=== PATIENT | male | born 1960 | race Caucasian/White ===

== ENCOUNTER → 2017-06-28 12:21 | Outpatient (CLI) | payer OTHER, SELFPAY ==
--- NOTE | 2017-06-28 | DI.CT.S_ITS ---
PROCEDURE: CT ANGIO ABDOMEN PELVIS INDICATIONS: DISSECTION OF AORTA TECHNIQUE: Non-contrast 3 mm thick sections acquired from the diaphragm to the symphysis. After the administration of intravenous contrast, 2.5 mm thick sections acquired from the diaphragm to the symphysis during the arterial and venous phases. 10 mm maximum intensity projection (MIP) reformats were acquired of the arterial phase images. For radiation dose reduction, the following was used: automated exposure control. COMPARISON: Outside Facility, RG, CT CHEST/ABD/PEL W/CONTRAST, 01/11/2017, 14:26. FINDINGS: Image quality: Excellent. Vascular structures: The distal aspect of a thoracic aortic endograft is visualized on this limited view of the chest. The visualized portions of the thoracic aorta are markedly tortuous. No aneurysmal dilatation. As before, aortic dissection is redemonstrated just superior to the level of the celiac axis at the distal aspect of the thoracic aortic endograft. Both lumens of the dissection opacify. However, the true lumen demonstrates slightly increased density with respect to the false lumen. The celiac axis is fed by the false lumen. A focal high-grade stenosis is present at the origin of the celiac axis unchanged on the study dated 01/11/17. The SMA is fed by the true lumen. The right renal artery is fed by the true lumen and the left renal artery is fed by the false lumen. The DEBBIE is fed by the false lumen. All mesenteric vessels are widely patent. The dissection plane extends into the bilateral iliac arteries. The dissection plane extends into the superior aspect of the left common iliac artery and the distal aspect of the right common iliac artery. The internal and external iliac arteries are fed by the true lumen bilaterally. The right iliac artery measures 2.1 cm in diameter which is unchanged from the prior study. No abdominal aortic aneurysm. No periaortic fat stranding or contrast extravasation. Extravascular structures: Lung bases are clear. Left pleural effusion visualized on the comparison study dated 01/11/17 has resolved. Heart size is normal. Liver is normal in size and enhancement. Gallbladder is unremarkable. Biliary system is non dilated. Pancreas enhances normally. Spleen is normal in size and enhancement. No adrenal nodules. Kidneys are normal in size and enhancement, without hydronephrosis. Non-opacified bowel loops demonstrate normal wall thickness and caliber. There are scattered sigmoid diverticula. No evidence for diverticulitis. No free fluid or air. No retroperitoneal or mesenteric adenopathy. There is a small fat containing ventral hernia. No suspicious bony abnormalities. No vertebral body compression fractures. There are bilateral L5-S1 pars interarticularis defects with grade I anterolisthesis. IMPRESSION: 1. Overall stable appearance of the aortic dissection when compared with the prior CT dated 01/11/17. 2. 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 Dictated by: Bonny Brennan M.D. on 06/28/2017 at 14:27 Approved by: Bonny Brennan M.D. on 06/28/2017 at 14:38
== END ==
PROVIDERS: PCP Family Medicine; Visit Provider Thoracic Surgery (Cardiothoracic Vascular Surgery)
DX: I71.01 Dissection of thoracic aorta (principal)
CPT/HCPCS: 74174; Q9967

== ENCOUNTER → 2017-11-05 16:00 | Outpatient (CLI) | payer OTHER, SELFPAY | DX: Z23 Encounter for immunization (principal) | CPT/HCPCS: 90471; 90686 ==

== ENCOUNTER → 2018-01-02 07:30 | Outpatient (CLI) | payer OTHER, SELFPAY ==
[2018-01-02 08:47] LABS: Add Manual Diff / Slide Review NO; Basophils Percent Auto 0.4 % (0-2); Eosinophils Percent Auto 5.5 % (2-4); Hematocrit 40.2 % (41-53); Hemoglobin 13.9 g/dL (13.5-17.5); Lymphocytes Percent Auto 22.8 % (25-40); Mean Corpuscular HGB Conc 34.5 % (30-36); Mean Corpuscular Volume 89.7 fL (80-100); Neutrophils Absolute Auto 3900 /uL (3000-5900); Neutrophils Percent Auto 63.3 % (50-75); Platelet Count 140 X10^3/uL (150-400); Red Blood Cell Count 4.48 X10^6/uL (4.5-5.9); Red Cell Distribution Width 13.5 % (11.6-14.8); White Blood Cell Count 6.2 X10^3/uL (4.5-11.0)
[2018-01-02 11:55] LABS: HEMOLYSIS < 15 (0-50); Prostate Specific Antigen Scrn 0.804 ng/mL (0.1-4.0)
[2018-01-02 11:57] LABS: TSH w/ Reflex to FT4 1.46 uIU/mL (0.47-4.68)
[2018-01-02 12:07] LABS: Alanine Aminotransferase 33 IU/L (21-72); Albumin 4.6 g/dL (3.5-5.0); Albumin Globulin Ratio 1.5 (1.0-2.8); Alkaline Phosphatase 54 U/L (38-126); Aspartate Aminotransferase 25 IU/L (17-59); BUN Creatinine Ratio 17.8 (6-22); Bilirubin Total 0.8 mg/dL (0.2-1.3); Blood Urea Nitrogen 16 mg/dL (9-20); Calcium 9.1 mg/dL (8.4-10.2); Carbon Dioxide 27 mmol/L (22-32); Chloride 104 mmol/L (98-107); Cholesterol 144 mg/dL (140-199); Estimated Glomerular Filt Rate > 60.0 mL/min (>60); Glucose 105 mg/dL (70-100); HDL Cholesterol 37 mg/dL (40-60); LDL Cholesterol Calculated 86 mg/dL (<100); Potassium 4.4 mmol/L (3.4-5.1); Sodium 144 mmol/L (137-145); Total Protein 7.6 g/dL (6.3-8.2); Triglycerides 105 mg/dL (35-150)
[2018-01-02 16:02] LABS: Free T4, Direct Thyroxine 1.06 ng/dL (0.78-2.19)
== END ==
PROVIDERS: Visit Provider Internal Medicine
DX: E78.5 Hyperlipidemia, unspecified (principal); I10 Essential (primary) hypertension; I71.03 Dissection of thoracoabdominal aorta; Z12.5 Encounter for screening for malignant neoplasm of prostate; R53.83 Other fatigue
CPT/HCPCS: 36415; 80053; 80061; 84439; 84443; 85025; G0103

== ENCOUNTER → 2018-11-14 09:18 | Outpatient (CLI) | payer OTHER, SELFPAY ==
--- NOTE | 2018-11-14 | DI.CT.S_ITS ---
PROCEDURE: CT ANGIO CHEST ABDOMEN PELVIS INDICATIONS: surgical aftercare following surgery TECHNIQUE: Precontrast 5 mm thick sections acquired from the lung apices to the iliac crests. After the administration of intravenous contrast, 2.5 mm thick sections again acquired from the lung apices to the iliac crests. Maximum intensity projection (MIP) oblique sagittal and coronal reformats were then acquired. For radiation dose reduction, the following was used: automated exposure control. COMPARISON: Outside Facility, , CT THORAX/ABD/PELVIS W/WO CONTRAST, 01/21/2018, 12:11. [facility], CT, ANGIO CHEST ABDOMEN PELVIS, 11/29/2016, 16:01. [facility], CT, ANGIO CHEST ABDOMEN PELVIS, 10/30/2016, 13:39. FINDINGS: Image quality: Excellent. AORTA: Intramural hematoma: Absent. Aortic and distended begins at the aortic arch and extends inferiorly through the descending thoracic aorta. Immediately below the end of the endostent the previously identified aortic dissection is again seen, extending inferiorly into the pelvis, without change in size of the true or false channel. No vascular insufficiency is associated. Maximum hematoma thickness: Not applicable. Focal contrast enhancement: Stable postcontrast enhancement of the true and false channel within the abdominal course of the aorta, tracking into the common iliac arteries bilaterally and extending more inferiorly on the right than the left, terminating within the proximal right external iliac artery. Dissection: Absent within the thoracic aorta, present and stable over time within the abdominal and pelvic portion of the aorta and the iliac vasculature slightly greater on the right than the left proximally. [place] classification: Binu classification B. Maximum aortic diameter: 3.8 cm transverse and 3.7 cm oblique AP just below the origin of the inferior mesenteric artery. This includes both the true and false channels in the area of the distal aortic dissection. This is stable over time. 3.6 x 3.4 cm at the renal artery origin level, also stable.. cm. [If [place] A dissection, > 5.0 cm has a poorer prognosis. If [place] B dissection, > 4.0 cm has a poorer prognosis.] Periaortic hematoma: Absent. CHEST: Lungs and pleura: No acute airspace opacities. No pleural effusions or pneumothorax. Central and peripheral airways are patent and normal in caliber. Mediastinum: Heart size is normal. No pericardial effusion. No mediastinal or hilar adenopathy by size criteria. Central pulmonary arteries are normal in size. Esophagus is normal in caliber. No hiatal hernias. Bones and chest wall: No axillary adenopathy by size criteria. Thyroid gland appears normal where well visualized. No suspicious bony lesions. No vertebral body compression fractures. ABDOMEN: Vasculature: Celiac trunk and mesenteric arteries are patent. Renal arteries are also patent. Solid organs: Liver is normal in size and enhancement. Gallbladder normal.. Biliary system is non dilated. Pancreas enhances normally. Spleen is normal in size and enhancement. No adrenal nodules. Both kidneys are normal in size and enhancement, without hydronephrosis. Peritoneum and bowel: No free fluid or air. Bowel loops are normal in caliber and wall thickness. Nodes and vessels: No retroperitoneal or mesenteric adenopathy by size criteria. Inferior vena cava is normal in morphology. Miscellaneous: No ventral hernias. PELVIS: Genitourinary: Bladder wall thickness is normal. Miscellaneous: No inguinal hernias or adenopathy. No ventral hernias. Bones: No suspicious bony lesions. No vertebral body compression fractures. IMPRESSION: The examination is stable over time. A previously present extensive thoracic, abdominal, and pelvic aortoiliac dissection has been treated with aortic arch and descending thoracic aorta endostent, without evidence of endostent leak. The stent ends at the descending thoracic aortic border, and the residual dissection can be seen immediately below tracking inferiorly into the iliac arteries. The caliber of the aorta and the both the true and false channels of the remaining area of dissection are stable over time. The true and false channels remain patent, including extending into the pelvis and tracking into the external iliac artery on the right but not on the left. No new abnormality has developed. Dictated by: Zay Monreal M.D. on 11/14/2018 at 13:15 Approved by: Zay Monreal M.D. on 11/14/2018 at 13:32
== END ==
PROVIDERS: Family Provider Internal Medicine; PCP Internal Medicine; Visit Provider Thoracic Surgery (Cardiothoracic Vascular Surgery)
DX: Z48.812 Encounter for surgical aftercare following surgery on the circulatory system (principal)
CPT/HCPCS: 71275; 74174; Q9967

== ENCOUNTER → 2018-11-27 16:06 | Outpatient (CLI) | payer OTHER, SELFPAY | PROVIDERS: PCP Internal Medicine | DX: Z23 Encounter for immunization (principal) | CPT/HCPCS: 90471; 90686 ==

== ENCOUNTER → 2019-08-31 06:40 | Outpatient (CLI) | payer OTHER, SELFPAY ==
[2019-08-31 14:13] LABS: Alanine Aminotransferase 24 IU/L (<50); Albumin 4.5 g/dL (3.5-5.0); Albumin Globulin Ratio 1.6 (1.0-2.8); Alkaline Phosphatase 49 U/L (38-126); Aspartate Aminotransferase 29 IU/L (17-59); BUN Creatinine Ratio 27.4 (6-22); Bilirubin Total 0.8 mg/dL (0.2-1.3); Blood Urea Nitrogen 29 mg/dL (9-20); Calcium 9.7 mg/dL (8.4-10.2); Carbon Dioxide 32 mmol/L (22-32); Chloride 98 mmol/L (98-107); Cholesterol 216 mg/dL (140-199); Estimated Glomerular Filt Rate > 60.0 mL/min (>60); Globulin 2.9 g/dL (1.7-4.1); Glucose 95 mg/dL (70-100); HDL Cholesterol 28 mg/dL (40-60); HEMOLYSIS < 15 (0-50); LDL Cholesterol Calculated 119 mg/dL (<100); Potassium 4.2 mmol/L (3.4-5.1); Sodium 138 mmol/L (137-145); Total Protein 7.4 g/dL (6.3-8.2); Triglycerides 347 mg/dL (35-150)
[2019-08-31 14:41] LABS: Magnesium 2.5 mg/dL (1.6-2.3)
[2019-08-31 14:42] LABS: Prostate Specific Antigen Scrn 0.938 ng/mL (0.1-4.0)
== END ==
PROVIDERS: PCP Internal Medicine; Referring Provider Internal Medicine Cardiovascular Disease; Visit Provider Internal Medicine Cardiovascular Disease
DX: Z12.5 Encounter for screening for malignant neoplasm of prostate (principal); I10 Essential (primary) hypertension; E78.5 Hyperlipidemia, unspecified
CPT/HCPCS: 36415; 80053; 80061; 83735; G0103

== ENCOUNTER 2019-11-18 07:21 | Observation (INO) | payer OTHER, SELFPAY ==
[2019-11-18] VITALS (19 sets, daily range): BP systolic 109–125; BP diastolic 58–75; PULSE 49–65; RESP 12–26; TEMP 36.4–37.4; O2SAT 94–99; BMI 35.8
--- NOTE | 2019-11-18 07:42 | ED_ITS ---
HPI - General Adult General Chief complaint: Dizziness Stated complaint: numb tongue, sweaty,dizziness now Time Seen by Provider: 11/18/19 07:32 Source: patient and family Mode of arrival: Ambulatory History of Present Illness HPI narrative: 59-year-old gentleman with a history of diabetes, hypertension hyperlipidemia and descending aortic aneurysm post stenting, presents with acute onset of diaphoresis, dizziness, tongue numbness, left arm tingling and global weakness. Started at 7:05 a.m. as he was walking in from his car in starting his work shift. Notes that he has chronic back pain and chronic bilateral peripheral paresthesia in the lower extremities after his aortic stent placement and this has not changed. No specific unilateral weakness but global weakness. Diaphoresis is improving on arrival in the emergency department does not complain of dyspnea, palpitations, chest pain, headaches. No additional focal neurologic symptoms any is able to speak fluidly and fully participate in exam and questions. 11:20am co-worker is available and additional details are added to the history. On initial presentation close questioning of the patient and his both suggested no acute neurologic changes. His co-worker, with whom he was talking when the symptoms initially started does report some word-finding difficulty and acute confusion that lasted approximately 10 minutes. Patient does not remember this. The co-worker also notes some mild confusion yesterday that was unusual but not persistent. Related Data Home Medications Medication Instructions Recorded Confirmed multivitamin [Multiple Vitamins] 1 tab PO QDAY #0 10/30/16 11/18/19 chlorthalidone 25 mg tablet 12.5 mg PO DAILY tab 11/20/18 11/18/19 metoprolol tartrate 50 mg tablet 25 mg PO BID tab 04/23/19 11/18/19 potassium chloride 8 mEq 8 meq PO DAILY tab 04/23/19 11/18/19 tablet,extended release atorvastatin 20 mg PO BEDTIME 11/18/19 11/18/19 Previous Rx's Medication Instructions Recorded lisinopril 20 mg tablet 20 mg PO BID #180 tab 04/30/19 Allergies Allergy/AdvReac Type Severity Reaction Status Date / Time No Known Drug Allergies Allergy Verified 04/23/19 13:31 Review of Systems Review of Systems Narrative: Pertinent positive and negative findings as per HPI Remainder of review of systems is otherwise unremarkable for Constitutional: Fevers, chills, ENT: No sore throat, neck pain, ear pain CV: Chest pain, palpitations, dyspnea on exertion Respiratory: Cough, wheeze, dyspnea GI: Nausea, vomiting, diarrhea, change in bowel habits, black or bloody stools : Dysuria, hematuria, flank pain MS: numbness, joint swelling or warmth Skin: Rashes, nonhealing lesions Neuro: Syncope Endocrine: Fatigue, heat or cold intolerance, very dry skin Patient History Medical History Aneurysm (Resolved ~2016) 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 Social History marital status: number of children: 1 household members: spouse lives independently: Yes caregiver/support person: No housing: house pets and animals: Yes education level: other (Bachelors) occupational status: employed [employer]: [employer] leisure activities: fishing, reading and other (Golf, Watching TV, Building things in yard) Smoking Status: Never smoker Tobacco: How many years used: 0 quit status: quit date established (Never Started) alcohol intake: current (Rarely) substance use type: does not use Smoking Status: Never smoker alcohol intake frequency: holidays/special occasions only Substance Use Type: does not use Exam Narrative Exam Narrative: General: Pale, diaphoretic, Able to give a complete and coherent history. Well-nourished well-developed HEENT: Moist mucous membranes, normal sclera with reactive pupils, no facial droop Neck: No JVD, supple, no carotid bruits Respiratory: Lungs are clear to auscultation, no wheezing no rales no rhonchi. Full and symmetrical air movement Cardiac: Regular rate and rhythm no murmurs no bruits Abdomen: Soft nontender good bowel tones, no flank pain Skin: Color is beginning to return, diaphoresis is lessening, no rashes Neurologic: Grossly neurologically intact with no obvious asymmetries or abnormalities, global weakness Extremities: No trauma, well perfused Psych: Cooperative, appropriate insight and affect Initial Vital Signs Initial Vital Signs: Vital Signs Pulse Rate 62 11/18/19 07:29 Respiratory Rate 15 11/18/19 07:29 Pulse Oximetry 95 11/18/19 07:29 Course Orders Ordered: ED Orders 11/18/19 07:27 EKG-12 Lead Routine 11/18/19 07:35 Complete Blood Count AUTO DIFF Stat Comprehensive Metabolic Panel Stat D Dimer Stat Lipase Stat Magnesium Stat NT-proBNP (BNP-Adult 18+) Stat Procalcitonin Stat Troponin I Stat 11/18/19 07:47 XR chest 1V Stat 11/18/19 08:20 Urinalysis and Microscopic Stat 11/18/19 10:16 CT angio chest PE protocol Stat 11/18/19 11:21 CT head/brain wo con Stat 11/18/19 11:25 Troponin I Stat 11/18/19 12:23 EKG-12 Lead Stat 11/18/19 13:23 EC echo doppler complete Stat MR head/brain wo/w con Stat Discontinued Medications Aspirin (Aspirin Chew) 324 mg PO NOW ONE Stop: 11/18/19 07:47 Last Admin: 11/18/19 07:55 Dose: 324 mg Documented by: MMINOR Vital Signs Vital signs: Vital Signs - 8 hr 11/18/19 07:29 11/18/19 07:30 11/18/19 08:00 Temperature 99.3 F Pulse Rate 62 61 62 Respiratory Rate 15 12 19 Blood Pressure 121/64 Pulse Oximetry 95 95 96 11/18/19 08:30 11/18/19 08:31 11/18/19 09:00 Temperature Pulse Rate 60 60 56 L Respiratory Rate 18 26 H 19 Blood Pressure 109/58 L 119/71 Pulse Oximetry 95 95 95 11/18/19 09:30 11/18/19 10:00 11/18/19 10:30 Temperature Pulse Rate 55 L 50 L 50 L Respiratory Rate 12 16 16 Blood Pressure 112/60 Pulse Oximetry 95 95 95 11/18/19 10:40 11/18/19 11:00 11/18/19 11:30 Temperature Pulse Rate 50 L 49 L 53 L Respiratory Rate 22 13 Blood Pressure 114/64 122/70 109/62 Pulse Oximetry 95 95 95 11/18/19 12:00 11/18/19 12:30 11/18/19 12:52 Temperature Pulse Rate 52 L 53 L 53 L Respiratory Rate 14 26 H 22 Blood Pressure 115/71 115/71 Pulse Oximetry 99 98 98 11/18/19 13:00 11/18/19 13:30 Temperature Pulse Rate 58 L 53 L Respiratory Rate 14 13 Blood Pressure 125/72 118/66 Pulse Oximetry 98 97 Medical Decision Making Medical Records Medical records reviewed: Yes I reviewed the patient's medical records. Lab Data Lab results reviewed: Yes I reviewed the patient's lab results. Result diagrams: 11/18/19 07:35 11/18/19 07:35 Labs: Lab Results 11/18/19 11/18/19 11/18/19 Range/Units 07:35 07:35 07:35 WBC 6.7 (4.5-11.0) X10^3/uL RBC 4.37 L (4.5-5.9) X10^6/uL Hgb 13.6 (13.5-17.5) g/dL Hct 39.3 L (41-53) % MCV 89.9 (80-100) fL MCH 31.2 (26-34) PG MCHC 34.7 (30-36) % RDW 13.5 (11.6-14.8) % Plt Count 157 (150-400) X10^3/uL Neut % (Auto) 65.7 (50-75) % Lymph % (Auto) 23.1 L (25-40) % [place] % (Auto) 6.4 (3-14) % Eos % (Auto) 4.3 H (2-4) % Baso % (Auto) 0.5 (0-2) % Neut # (Auto) 4400 (5379-7562) /uL Lymph # (Auto) 1500 (0252-2792) /uL [place] # (Auto) 400 (0-900) /uL Eos # (Auto) 300 (0-450) /uL Baso # (Auto) 0 (0-100) /uL D-Dimer 2628 H (<230) ng/mL Sodium 139 (137-145) mmol/L Potassium 3.7 (3.4-5.1) mmol/L Chloride 102 (98-107) mmol/L Carbon Dioxide 27 (22-32) mmol/L BUN 19 (9-20) mg/dL Creatinine 0.97 (0.66-1.25) mg/dL Estimated GFR > 60.0 (>60) mL/min BUN/Creatinine Ratio 19.6 (6-22) Glucose 141 H (70-100) mg/dL Calcium 8.9 (8.4-10.2) mg/dL Magnesium 2.2 (1.6-2.3) mg/dL Total Bilirubin 0.7 (0.2-1.3) mg/dL AST 27 (17-59) IU/L ALT 24 (<50) IU/L Alkaline Phosphatase 55 (38-126) U/L Troponin I < 0.012 (0.01-0.034) ng/mL NT-Pro-B Natriuret Pep 13 (<125) pg/mL Total Protein 7.3 (6.3-8.2) g/dL Albumin 4.3 (3.5-5.0) g/dL Globulin 3.0 (1.7-4.1) g/dL Albumin/Globulin Ratio 1.4 (1.0-2.8) Lipase 226 (23-300) U/L Procalcitonin (<0.5) ng/mL Urine Color Urine Appearance Urine pH (4.5-8.0) Ur Specific [place] (1.000-1.035) Urine Protein (Negative) Urine Glucose (UA) (Negative) g/dL Urine Ketones (NEGATIVE) Urine Occult Blood (Negative) Urine Nitrate (Negative) Urine Bilirubin (NEGATIVE) Urine Urobilinogen (0.2) E.U./dL Ur Leukocyte Esterase (NEGATIVE) Urine RBC (0-5/HPF) Urine WBC (0-5/HPF) Urine Bacteria (None) Ur Culture Indicated? Micro UA Comment 11/18/19 11/18/19 11/18/19 Range/Units 07:35 08:20 11:25 WBC (4.5-11.0) X10^3/uL RBC (4.5-5.9) X10^6/uL Hgb (13.5-17.5) g/dL Hct (41-53) % MCV (80-100) fL MCH (26-34) PG MCHC (30-36) % RDW (11.6-14.8) % Plt Count (150-400) X10^3/uL Neut % (Auto) (50-75) % Lymph % (Auto) (25-40) % [place] % (Auto) (3-14) % Eos % (Auto) (2-4) % Baso % (Auto) (0-2) % Neut # (Auto) (0559-6412) /uL Lymph # (Auto) (1086-1600) /uL [place] # (Auto) (0-900) /uL Eos # (Auto) (0-450) /uL Baso # (Auto) (0-100) /uL D-Dimer (<230) ng/mL Sodium (137-145) mmol/L Potassium (3.4-5.1) mmol/L Chloride (98-107) mmol/L Carbon Dioxide (22-32) mmol/L BUN (9-20) mg/dL Creatinine (0.66-1.25) mg/dL Estimated GFR (>60) mL/min BUN/Creatinine Ratio (6-22) Glucose (70-100) mg/dL Calcium (8.4-10.2) mg/dL Magnesium (1.6-2.3) mg/dL Total Bilirubin (0.2-1.3) mg/dL AST (17-59) IU/L ALT (<50) IU/L Alkaline Phosphatase (38-126) U/L Troponin I < 0.012 (0.01-0.034) ng/mL NT-Pro-B Natriuret Pep (<125) pg/mL Total Protein (6.3-8.2) g/dL Albumin (3.5-5.0) g/dL Globulin (1.7-4.1) g/dL Albumin/Globulin Ratio (1.0-2.8) Lipase (23-300) U/L Procalcitonin < 0.05 (<0.5) ng/mL Urine Color Yellow Urine Appearance Clear Urine pH 7.0 (4.5-8.0) Ur Specific [place] 1.015 (1.000-1.035) Urine Protein Negative (Negative) Urine Glucose (UA) Negative (Negative) g/dL Urine Ketones Negative (NEGATIVE) Urine Occult Blood Negative (Negative) Urine Nitrate Negative (Negative) Urine Bilirubin Negative (NEGATIVE) Urine Urobilinogen 0.2 (0.2) E.U./dL Ur Leukocyte Esterase Negative (NEGATIVE) Urine RBC None seen (0-5/HPF) Urine WBC None seen (0-5/HPF) Urine Bacteria None seen (None) Ur Culture Indicated? Cult not indicated Micro UA Comment Microscopic normal Imaging Data CT scan - chest: Radiologist's Impression: FINDINGS: Image quality: Excellent. Pulmonary arteries: Pulmonary arteries are normal in size, and demonstrate no intraluminal filling defects to suggest central pulmonary embolism. Lungs and pleura: Lungs are clear. No pleural effusions or pneumothorax. Central and peripheral airways are patent. Mediastinum: Heart size is normal, without pericardial effusion. There is moderate coronary artery calcification. There are calcified lymph nodes in mediastinum and ezio, consistent with remote granulomatous disease. No enlarged hilar lymph nodes. There are postsurgical changes in thoracic aorta a with an luminal graft. Aorta is mildly aneurysmal and tortuous. Esophagus is normal in caliber, without hiatal hernia. Bones and chest wall: No suspicious bony lesions. Ribs and thoracic spine appear intact throughout. Thyroid gland is normal. No axillary or supraclavicular adenopathy. Abdomen: Visualized upper abdominal solid organs appear normal in the early arterial phase of enhancement. IMPRESSION: 1. No pulmonary embolism. 2. Postsurgical changes in thoracic aorta. Thoracic aorta is tortuous and mildly aneurysmal. Dictated by: Pravin Blanco M.D. on 11/18/2019 at 10:19 Chest x-ray: Radiologist's Impression: FINDINGS: Surgical changes and devices: Descending thoracic aorta endovascular stent in place. Surgical clips at the base of the left neck. Lungs and pleura: Lungs are clear. No pleural effusions or pneumothorax. Mediastinum: Mediastinal contours appear normal. Heart size is normal. Bones and chest wall: No suspicious bony lesions. Overlying soft tissues appear unremarkable. IMPRESSION: No acute process. Dictated by: Elvira Greene M.D. on 11/18/2019 at 8:00 CT scan - head: Radiologist's Impression: FINDINGS: Image quality: Excellent. CSF spaces: Basal cisterns are patent. No extra-axial fluid collections. Ventricles are normal in size and shape. Brain: No midline shift. No intracranial masses or hemorrhage. [place]-white matter interface is normal. Skull and face: Calvarium and visualized facial bones are intact, without suspicious lesions. Sinuses: There is mild mucosal thickening in ethmoid and sphenoid sinuses and the left maxillary sinus. The mastoids are clear. IMPRESSION: 1. No acute intracranial abnormalities. 2. Mild paranasal sinus disease. Dictated by: Pravin Blanco M.D. on 11/18/2019 at 12:07 ECG Data Attestation: I personally reviewed and interpreted this ECG as follows: Interpretation: Sinus rhythm at a rate of 62 Left axis deviation, normal intervals No acute STT wave changes MDM Narrative Medical decision making narrative: 59-year-old gentleman presents with acute episode of dizziness, diaphoresis and global weakness. Initial workup is unremarkable. EKG is reassuring. D-dimer was elevated PE study of the chest does not show any acute findings. Repeat both EKG and troponin at this time. Patient continues to improve throughout the course of his ER stay. 11:20 with additional details and the confusion and word-finding difficulties for 10 minutes in the 1st presentation with the diaphoresis dizziness tongue tingling and left arm tingling certainly sounds like there could be a neurologic component as opposed to purely a cardiac component. CT scan of the head will be added. [address] scan is unremarkable. In light of the rather dramatic presentation prolonged diaphoresis and in retrospect with new additional information now the brief confusion and word-finding difficulties am going to recommend hospitalization for continued cardiac rule out and stroke/TIA workup. Dr. Barbosa is his primary care physician will contact him 115pm Reviewed with Dr Byrne. Will admit. MRI and cardiac echo ordered to expedite stay Discharge Plan Departure Patient Disposition: Admitted as Observation Clinical Impression: Brain TIA Admit Date/Time: 11/18/19 13:32 Admit Provider: Sea Barbosa
--- NOTE | 2019-11-18 07:43 | PC.NURSE ---
pt denies any chest pain
--- NOTE | 2019-11-18 07:47 | DI.RAD.S_ITS ---
PROCEDURE: XR CHEST 1V INDICATIONS: weak, diaphoretic, arm tingling left side TECHNIQUE: One view of the chest was acquired. COMPARISON: [facility], , CHEST 1 VIEW, 10/30/2016, 10:34. FINDINGS: Surgical changes and devices: Descending thoracic aorta endovascular stent in place. Surgical clips at the base of the left neck. Lungs and pleura: Lungs are clear. No pleural effusions or pneumothorax. Mediastinum: Mediastinal contours appear normal. Heart size is normal. Bones and chest wall: No suspicious bony lesions. Overlying soft tissues appear unremarkable. IMPRESSION: No acute process. Dictated by: Elvira Greene M.D. on 11/18/2019 at 8:00 Approved by: Elvira Greene M.D. on 11/18/2019 at 8:03
--- NOTE | 2019-11-18 07:47 | PC.NURSE ---
pt states he felt some tingling in L arm at onset of dizziness with diaphoresis and generalized weakness but denies pain or syncope
[2019-11-18] MEDS: ASPIRIN 81 MG CHEW TAB 324 MG PO (07:55)
[2019-11-18 08:05] LABS: Add Manual Diff / Slide Review NO; Basophils Absolute Auto 0 /uL (0-100); Basophils Percent Auto 0.5 % (0-2); Eosinophils Absolute Auto 300 /uL (0-450); Eosinophils Percent Auto 4.3 % (2-4); Hematocrit 39.3 % (41-53); Hemoglobin 13.6 g/dL (13.5-17.5); Lymphocytes Absolute Auto 1500 /uL (1100-4500); Lymphocytes Percent Auto 23.1 % (25-40); Mean Corpuscular HGB Conc 34.7 % (30-36); Mean Corpuscular Hemoglobin 31.2 PG (26-34); Mean Corpuscular Volume 89.9 fL (80-100); Monocytes Absolute Auto 400 /uL (0-900); Monocytes Percent Auto 6.4 % (3-14); Neutrophils Absolute Auto 4400 /uL (1500-7000); Neutrophils Percent Auto 65.7 % (50-75); Platelet Count 157 X10^3/uL (150-400); Red Blood Cell Count 4.37 X10^6/uL (4.5-5.9); Red Cell Distribution Width 13.5 % (11.6-14.8); White Blood Cell Count 6.7 X10^3/uL (4.5-11.0)
[2019-11-18 08:11] LABS: Alanine Aminotransferase 24 IU/L (<50); Albumin 4.3 g/dL (3.5-5.0); Albumin Globulin Ratio 1.4 (1.0-2.8); Alkaline Phosphatase 55 U/L (38-126); Aspartate Aminotransferase 27 IU/L (17-59); BUN Creatinine Ratio 19.6 (6-22); Bilirubin Total 0.7 mg/dL (0.2-1.3); Blood Urea Nitrogen 19 mg/dL (9-20); Calcium 8.9 mg/dL (8.4-10.2); Carbon Dioxide 27 mmol/L (22-32); Chloride 102 mmol/L (98-107); Estimated Glomerular Filt Rate > 60.0 mL/min (>60); Glucose 141 mg/dL (70-100); HEMOLYSIS 17 (0-50); Lipase 226 U/L (23-300); Magnesium 2.2 mg/dL (1.6-2.3); Potassium 3.7 mmol/L (3.4-5.1); Sodium 139 mmol/L (137-145); Total Protein 7.3 g/dL (6.3-8.2)
[2019-11-18 08:16] LABS: D Dimer 2628 ng/mL (<230)
[2019-11-18 08:23] LABS: NT-proBNP (BNP-Adult 18+) 13 pg/mL (<125); Troponin I < 0.012 ng/mL (0.01-0.034)
[2019-11-18 08:28] LABS: Procalcitonin < 0.05 ng/mL (<0.5)
[2019-11-18 09:11] LABS: Bacteria Urine None Seen; RBC Urine None Seen (0-5/HPF); WBC Urine None Seen (0-5/HPF)
[2019-11-18 09:12] LABS: Appearance Urine UA CLEAR; Bilirubin Urine UA NEGATIVE (NEGATIVE); Color Urine UA YELLOW; Glucose Urine UA NEGATIVE (Negative); Ketones Urine UA NEGATIVE (NEGATIVE); Leukocyte Esterase Urine UA NEGATIVE (NEGATIVE); Nitrite Urine UA NEGATIVE (Negative); Occult Blood Urine UA NEGATIVE (Negative); Protein Urine UA NEGATIVE (Negative); Specific Gravity Urine UA 1.015 (1.000-1.035); Urobilinogen Urine UA 0.2 E.U./dL (0.2)
[2019-11-18 09:23] LABS: Culture Indicated Urine Cult Not Indicated; Urine Comments Microscopic Normal
--- NOTE | 2019-11-18 10:03 | PC.NURSE ---
Pt to CT via dann
--- NOTE | 2019-11-18 10:16 | DI.CT.S_ITS ---
PROCEDURE: CT ANGIO CHEST PE PROTOCOL INDICATIONS: elevated d-dimer TECHNIQUE: After the administration of intravenous contrast, 2 mm thick sections acquired from the pulmonary apices to the posterior costophrenic angles. 3-dimensional maximum intensity projection (MIP) coronal and sagittal reformats were then acquired through the thorax. For radiation dose reduction, the following was used: automated exposure control, adjustment of mA and/or kV according to patient size. COMPARISON: Outside Facility, RG, CT THORAX/ABD/PELVIS W/WO CONTRAST, 01/21/2018, 12:11. [facility], CT, CT ANGIO CHEST ABDOMEN PELVIS, 11/14/2018, 9:25. [facility], CR, XR CHEST 1V, 11/18/2019, 7:54. FINDINGS: Image quality: Excellent. Pulmonary arteries: Pulmonary arteries are normal in size, and demonstrate no intraluminal filling defects to suggest central pulmonary embolism. Lungs and pleura: Lungs are clear. No pleural effusions or pneumothorax. Central and peripheral airways are patent. Mediastinum: Heart size is normal, without pericardial effusion. There is moderate coronary artery calcification. There are calcified lymph nodes in mediastinum and ezio, consistent with remote granulomatous disease. No enlarged hilar lymph nodes. There are postsurgical changes in thoracic aorta a with an luminal graft. Aorta is mildly aneurysmal and tortuous. Esophagus is normal in caliber, without hiatal hernia. Bones and chest wall: No suspicious bony lesions. Ribs and thoracic spine appear intact throughout. Thyroid gland is normal. No axillary or supraclavicular adenopathy. Abdomen: Visualized upper abdominal solid organs appear normal in the early arterial phase of enhancement. IMPRESSION: 1. No pulmonary embolism. 2. Postsurgical changes in thoracic aorta. Thoracic aorta is tortuous and mildly aneurysmal. Dictated by: Pravin Blanco M.D. on 11/18/2019 at 10:19 Approved by: Pravin Blanco M.D. on 11/18/2019 at 10:31
--- NOTE | 2019-11-18 11:21 | DI.CT.S_ITS ---
PROCEDURE: CT HEAD/BRAIN WO CON INDICATIONS: Possible TIA TECHNIQUE: Noncontrast 4.5 mm thick angled axial sections acquired from the foramen magnum to the vertex, with coronal and sagittal reformats. For radiation dose reduction, the following was used: automated exposure control, adjustment of mA and/or kV according to patient size. COMPARISON: Outside Facility, RG, CT HEAD W/O CONTRAST, 01/05/2017, 18:07. FINDINGS: Image quality: Excellent. CSF spaces: Basal cisterns are patent. No extra-axial fluid collections. Ventricles are normal in size and shape. Brain: No midline shift. No intracranial masses or hemorrhage. Santiago-white matter interface is normal. Skull and face: Calvarium and visualized facial bones are intact, without suspicious lesions. Sinuses: There is mild mucosal thickening in ethmoid and sphenoid sinuses and the left maxillary sinus. The mastoids are clear. IMPRESSION: 1. No acute intracranial abnormalities. 2. Mild paranasal sinus disease. Dictated by: Pravin Blanco M.D. on 11/18/2019 at 12:07 Approved by: Pravin Blanco M.D. on 11/18/2019 at 12:09
[2019-11-18 11:56] LABS: Troponin I < 0.012 ng/mL (0.01-0.034)
--- NOTE | 2019-11-18 12:59 | PC.NURSE ---
Pt complains of swelling around eyes, swelling noted visually, denies other areas of swelling, lung sounds clear. No visible rash to trunk or extremities. Reported to Dr Ureña, no new orders
--- NOTE | 2019-11-18 13:23 | DI.MRI.S_ITS ---
PROCEDURE: MR HEAD/BRAIN WO/W CON INDICATIONS: TIA - being admitted TECHNIQUE: Noncontrast axial T1 spin echo, axial T2 fast spin echo, sagittal and axial FLAIR, coronal T2 fast spin echo, axial gradient echo, axial diffusion and ADC through the brain. After the administration of contrast, axial and coronal 3D VIBE or T1 spin echo with fat saturation through the brain. COMPARISON: [facility], CT, CT ANGIO CHEST PE PROTOCOL, 11/18/2019, 10:03. [facility], CT, CT HEAD/BRAIN WO CON, 11/18/2019, 11:52. FINDINGS: Image quality: Excellent. CSF Spaces: Basal cisterns are patent. No extra-axial fluid collections. Ventricles are normal in size and shape. Brain: No midline shift. No intracranial bleeds or masses. No abnormal intracranial enhancement. Mild diffuse cerebral volume loss. Minimal degree of patchy high FLAIR signal within the periventricular and subcortical white matter. The brainstem appears normal. Diffusion-weighted images demonstrate no acute ischemic insults. No chronic ischemic insults. Normal intravascular flow voids are present. Skull and face: Calvarial marrow is normal in signal. Orbits appear normal. Sinuses: Moderate mucosal thickening within the left frontal sinus. Mild mucosal thickening in the bilateral maxillary and ethmoid sinuses. IMPRESSION: 1. Mild volume loss and small vessel ischemic disease. 2. No acute process. No recent infarct. 3. Sinus disease. Dictated by: Milton Schrader M.D. on 11/18/2019 at 14:31 Approved by: Milton Schrader M.D. on 11/18/2019 at 14:35
--- NOTE | 2019-11-18 13:54 | PC.NURSE ---
Pt going to MRI, cardiac leads removed.
[2019-11-18 14:11] LABS: COVID19 -Nasal RAPID Negative (Negative)
--- NOTE | 2019-11-18 14:47 | DI.ECHO.S_ITS ---
[facility]+ [facility] +---------+ : : [address] : : : : [id number] : : : : Phone: [phone]+ Echocardiogram Report + + :Name: HONEY GONZALEZ Study Date: 11/19/2019 Height: 71.5 in: :[facility] Weight: 260 lb : : Gender: Male BSA: 2.4 m2 : :: 1960 Age: 59 yrs BP: 116/71 mmHg: :Reason For Study: TIA : :Ordering Physician: : :ASHOKISTMANDO Performed By: Lisa Blackwood : :Referring: MARINA BHAKTA R : + + Interpretation Summary Normal LV size and wall thickness. Normal wall motion left ventricular systolic function. Ejection fraction is 60-65%. Mild left atrial enlargement. Otherwise normal chamber sizes. Aortic valve leaflets are normal with mild associated aortic regurgitation. Otherwise no significant valvular abnormalities. Aortic root is borderline dilated measuring 4.1 cm. Ascending aorta is mildly dilated measuring 4.2 cm. Patient has history of thoracic aortic dissection endovascular repair. No evidence of residual dissection. No evidence of patent foramen ovale based on bubble study. Compared to prior study April 08, 2017, changes have occurred Procedure: A two-dimensional transthoracic echocardiogram with color flow and Doppler was performed. The study quality was technically adequate. Comparison is made with the echocardiogram of 04/08/2017. The subcostal views were difficult to obtain and are suboptimal in quality. The heart rate ranged between 48-60 bpm during the study. Left Ventricle: The left ventricle is normal in size and wall thickness. The ejection fraction is estimated to be 60-65%. Diastolic parameters suggest a relaxation abnormality of the left ventricle, consistent with probable normal filling pressures. Right Ventricle: The right ventricle is grossly normal size. Right ventricular systolic function is mildly reduced. Atria: The left atrium is mildly dilated. Right atrial size is normal. There is no Doppler evidence for an interatrial shunt. Mitral Valve: The mitral valve is normal in structure and function. There is mild mitral regurgitation. Aortic Valve: The aortic valve is trileaflet. The aortic valve opens well. There is no aortic valve stenosis. There is mild aortic regurgitation. Tricuspid Valve: The tricuspid valve is normal in structure and function. Pulmonary artery pressures cannot be estimated because of the lack of a measurable TR jet velocity. Pulmonic Valve: The pulmonic valve is not well seen, but is grossly normal. There is trace pulmonic regurgitation. Great Vessels: The aortic root is borderline dilated. The ascending aorta is mildly enlarged. The inferior vena cava was not visualized. Pericardium/ Pleura There is no pericardial effusion. There is no pleural effusion. MMode/2D Measurements & Calculations LVIDd: 5.9 cm LVOT diam: 2.3 cm LVIDs: 3.7 cm Ao root diam: 4.1 cm FS: 37.3 % asc Aorta Diam: 4.2 cm EPSS: 1.1 cm Ao Arch Diam (Prox Trans): 3.4 cm IVSd: 0.86 cm LVPWd: 0.99 cm LV hendrickson. diameter/BSA (cm/m^2): 2.5 LV sys. diameter/BSA (cm/m^2): 1.6 LA A2 area: 24.8 cm2 RA long axis: 5.4 cm LA A4 area: 20.1 cm2 RA area: 16.2 cm2 LA length (vol): 5.3 cm RA vol: 41.2 ml LA vol: 79.4 ml RA : 17.4 ml/m2 LA vol index: 33.5 ml/m2 RVD1 (basal): 3.5 cm TAPSE: 1.6 cm Doppler Measurements & Calculations Ao V2 max: 169.7 cm/sec LVOT Max Renaldo: 123.1 cm/sec Ao V2 mean: 112.0 cm/sec LV V1 max P.1 mmHg Ao max P.5 mmHg LV V1 VTI: 24.8 cm Ao mean P.7 mmHg LANDON(I,D): 2.9 cm2 Ao V2 VTI: 34.5 cm LANDON(V,D): 2.9 cm2 sev ratio: 0.72 LANDON indexed to BSA (cm^2/m^2): 1.2 AI P1/2t: 768.8 msec AI dec slope: 150.9 cm/sec2 MV E max renaldo: 53.6 cm/sec PA V2 max: 79.7 cm/sec MV A max renaldo: 64.3 cm/sec PA V2 mean: 58.4 cm/sec MV E/A: 0.83 PA mean P.5 mmHg Med Peak E' Renaldo: 6.4 cm/sec PA pr(Accel): 22.5 mmHg E/E' med: 8.4 Lat Peak E' Renaldo: 9.4 cm/sec E/E' lat: 5.7 E/e' average: 7.0 MV dec time: 0.28 sec SV(LVOT): 99.0 ml Electronically signed by: Cara Garcia M.D. on [place] Physician:11/19/2019 06:28 PM
--- NOTE | 2019-11-18 15:19 | PC.NURSE ---
Patient to room 204 at 1440. Dx is CVA. Patient is A&Ox3, no hemiperisis noted, smile is symmetrical. 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 He states that he was having some tingling down his l.arm, tongue numbness, dizziness, and global weakness when he got to work so he came to the ER. is visiting now and patient is comfortable and denies any symptoms.
--- NOTE | 2019-11-18 16:50 | DI.US.S_ITS ---
PROCEDURE: US CAROTID DOPPLER BI INDICATIONS: TIA TECHNIQUE: Color and pulse Doppler interrogation was performed of both carotid systems, with image documentation and velocity measurements. COMPARISON: [facility], MR, MR HEAD/BRAIN WO/W CON, 11/18/2019, 14:05. [facility], CT, CT HEAD/BRAIN WO CON, 11/18/2019, 11:52. [facility], US, CAROTID ARTERY DOPPLER BILAT, 12/17/2016, 8:44. FINDINGS: Stenosis calculations are based on SRU (Society of Radiologists in Ultrasound) criteria. The flow velocities and the arterial waveforms are normal within both carotid arterial systems. Atherosclerotic plaque is seen on both sides. The estimated degree of internal carotid artery stenosis is less than 50%. Antegrade flow is confirmed within both vertebral arteries. IMPRESSION: No hemodynamically significant stenosis is seen. No significant change from the prior. Atherosclerotic plaque is noted bilaterally. Dictated by: Armand Hurst M.D. on 11/18/2019 at 16:50 Approved by: Armand Hurst M.D. on 11/18/2019 at 16:51
--- NOTE | 2019-11-18 17:19 | PM.HP.1 ---
History of Present Illness History of Present Illness Date Patient Seen: 11/18/19 Time Patient Seen: 17:19 Date of Onset of Symptoms: 11/18/19 Chief complaint: numb tongue, sweaty,dizziness now Narrative: TIA. Patient bed through the emergency room for questionable TIA. Patient came to work here and felt his usual self. Soon thereafter however he felt the the lightheaded and dizzy generally weak it and this felt poorly. Soon thereafter the that he noticed left-sided his tongue was numb and tingly his left arm seem to feel sort of achy in felt this odd. It additionally he apparently was somewhat confused and disoriented. He laid down and seemingly got better but the a symptoms seemed to progress so he was brought to the emergency room for further evaluation. During the course of time in the emergency room the symptoms above totally resolved till well currently when I seeing him he is back to his normal. No history of TIA no history of stroke or heart attack. He does have a history of repair of a thoracic aortic aneurysm 3 years ago with fairly large stent. He had history of hypertension hyperlipidemia on medication for same.. The patient was admitted for evaluation been of the above symptoms. 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 Social History: household members spouse Prior Living Arrangements House lives independently Yes caregiver/support person No Safety & Behavioral: Feels Safe in Current Yes Environment Been Physically Hurt or No Threatened By a Person Suicidal Ideation Description None Suicide Plan Description No Plan Tobacco & Substance use: Smoking Status Never smoker alcohol intake current alcohol intake frequency holiday/special occasion Substance Use Type does not use Meds Home Medications and Allergies Home Medications Medication Instructions Recorded Confirmed Type multivitamin [Multiple Vitamins] 1 tab PO QDAY #0 10/30/16 11/18/19 History chlorthalidone 25 mg tablet 12.5 mg PO DAILY tab 11/20/18 11/18/19 History metoprolol tartrate 50 mg tablet 25 mg PO BID tab 04/23/19 11/18/19 History potassium chloride 8 mEq 8 meq PO DAILY tab 04/23/19 11/18/19 History tablet,extended release lisinopril 20 mg tablet 20 mg PO BID #180 tab 04/30/19 11/18/19 Rx atorvastatin 20 mg PO BEDTIME 11/18/19 11/18/19 History Allergies Allergy/AdvReac Type Severity Reaction Status Date / Time No Known Drug Allergies Allergy Verified 04/23/19 13:31 Review of Systems Review of Systems ROS: Yes All systems reviewed with the patient and are negative except as otherwise documented Exam Vital Signs (past 8 hours): - 11/18/19 09:30 11/18/19 10:00 11/18/19 10:30 Temperature Pulse Rate 55 L 50 L 50 L Respiratory Rate 12 16 16 Blood Pressure 112/60 Pulse Oximetry 95 95 95 11/18/19 10:40 11/18/19 11:00 11/18/19 11:30 Temperature Pulse Rate 50 L 49 L 53 L Respiratory Rate 22 13 Blood Pressure 114/64 122/70 109/62 Pulse Oximetry 95 95 95 11/18/19 12:00 11/18/19 12:30 11/18/19 12:52 Temperature Pulse Rate 52 L 53 L 53 L Respiratory Rate 14 26 H 22 Blood Pressure 115/71 115/71 Pulse Oximetry 99 98 98 11/18/19 13:00 11/18/19 13:30 11/18/19 14:47 Temperature 97.5 F L Pulse Rate 58 L 53 L 58 L Respiratory Rate 14 13 17 Blood Pressure 125/72 118/66 121/75 Pulse Oximetry 98 97 99 Oxygen Delivery Method Room Air Narrative Exam Narrative: Gen.: Patient is resting quietly in hospital bed appears in no distress Skin: Warm well perfused. No prominent lesions. Nonicteric. HEENT: PERRL., normal EOM, external ears canals TMs normal, nasal mucosa normal and midline septum, oropharynx without lesions. Neck: Trachea midline. Thyroid nontender and not enlarged. Carotids without bruits. No lymphadenopathy Back: No obvious deformity or tenderness. Chest: Clear to P&A. Symmetric. CV: RRR no murmur or gallop. No JVD. Abdomen: No masses bruits tenderness or visceromegaly. Neuro: Cranial nerves II through XII grossly intact. Sensory and motor exams intact. Gait normal. Mental status: Intact for screening Extremities: No cyanosis clubbing or edema Musculoskeletal: No gross deformities Lymphatics: Negative for lymphadenopathy, supraclavicular axillary or inguinal He is alert oriented x3. Cranial nerves 2-12 intact. Neurologic exam is otherwise normal strength sensation upper extremities symmetric and normal. Did not test gait Objective Labs Result Diagrams: 11/18/19 07:35 11/18/19 07:35 Labs: Laboratory Results - last 24 hr 11/18/19 11/18/19 11/18/19 07:35 07:35 07:35 WBC 6.7 RBC 4.37 L Hgb 13.6 Hct 39.3 L MCV 89.9 MCH 31.2 MCHC 34.7 RDW 13.5 Plt Count 157 Neut % (Auto) 65.7 Lymph % (Auto) 23.[address] % (Auto) 6.4 Eos % (Auto) 4.3 H Baso % (Auto) 0.5 Neut # (Auto) 4400 Lymph # (Auto) 1500 [place] # (Auto) 400 Eos # (Auto) 300 Baso # (Auto) 0 D-Dimer 2628 H Sodium 139 Potassium 3.7 Chloride 102 Carbon Dioxide 27 BUN 19 Creatinine 0.97 Estimated GFR > 60.0 BUN/Creatinine Ratio 19.6 Glucose 141 H Calcium 8.9 Magnesium 2.2 Total Bilirubin 0.7 AST 27 ALT 24 Alkaline Phosphatase 55 Troponin I < 0.012 NT-Pro-B Natriuret Pep 13 Total Protein 7.3 Albumin 4.3 Globulin 3.0 Albumin/Globulin Ratio 1.4 Lipase 226 Procalcitonin Urine Color Urine Appearance Urine pH Ur Specific [place] Urine Protein Urine Glucose (UA) Urine Ketones Urine Occult Blood Urine Nitrate Urine Bilirubin Urine Urobilinogen Ur Leukocyte Esterase Urine RBC Urine WBC Urine Bacteria Ur Culture Indicated? Micro UA Comment COVID-19 PCR 11/18/19 11/18/19 11/18/19 07:35 08:20 11:25 WBC RBC Hgb Hct MCV MCH MCHC RDW Plt Count Neut % (Auto) Lymph % (Auto) [place] % (Auto) Eos % (Auto) Baso % (Auto) Neut # (Auto) Lymph # (Auto) [place] # (Auto) Eos # (Auto) Baso # (Auto) D-Dimer Sodium Potassium Chloride Carbon Dioxide BUN Creatinine Estimated GFR BUN/Creatinine Ratio Glucose Calcium Magnesium Total Bilirubin AST ALT Alkaline Phosphatase Troponin I < 0.012 NT-Pro-B Natriuret Pep Total Protein Albumin Globulin Albumin/Globulin Ratio Lipase Procalcitonin < 0.05 Urine Color Yellow Urine Appearance Clear Urine pH 7.0 Ur Specific [place] 1.015 Urine Protein Negative Urine Glucose (UA) Negative Urine Ketones Negative Urine Occult Blood Negative Urine Nitrate Negative Urine Bilirubin Negative Urine Urobilinogen 0.2 Ur Leukocyte Esterase Negative Urine RBC None seen Urine WBC None seen Urine Bacteria None seen Ur Culture Indicated? Cult not indicated Micro UA Comment Microscopic normal COVID-19 PCR 11/18/19 13:45 WBC RBC Hgb Hct MCV MCH MCHC RDW Plt Count Neut % (Auto) Lymph % (Auto) [place] % (Auto) Eos % (Auto) Baso % (Auto) Neut # (Auto) Lymph # (Auto) [place] # (Auto) Eos # (Auto) Baso # (Auto) D-Dimer Sodium Potassium Chloride Carbon Dioxide BUN Creatinine Estimated GFR BUN/Creatinine Ratio Glucose Calcium Magnesium Total Bilirubin AST ALT Alkaline Phosphatase Troponin I NT-Pro-B Natriuret Pep Total Protein Albumin Globulin Albumin/Globulin Ratio Lipase Procalcitonin Urine Color Urine Appearance Urine pH Ur Specific [place] Urine Protein Urine Glucose (UA) Urine Ketones Urine Occult Blood Urine Nitrate Urine Bilirubin Urine Urobilinogen Ur Leukocyte Esterase Urine RBC Urine WBC Urine Bacteria Ur Culture Indicated? Micro UA Comment COVID-19 PCR Negative Labs reviewed of significance D-dimer is elevated but she has patient underwent a chest CT which was negative. Head CT normal. EKG normal. Troponin normal. Assessment & Plan Assessment & Plan narrative: 1. Patient with neurologic symptoms that resolved completely. Certainly consistent with what we determined a transient ischemic attack. Patient's symptoms have resolved but he does have risk factors including hypertension hyperlipidemia. Patient will be monitored overnight for any arrhythmia. Additionally workup will include MR Harris calmed carotid Doppler, and echocardiogram. Anticipate discharge home tomorrow presumably on aspirin a pending the above studies have. Dr. Barbosa see him in the morning. 2. History of hypertension stable. 3. History of hyperlipidemia stable 4. History of of thoracic aorta aneurysm repair 2017. 5. Apparent history of sleep apnea. 6. Troponins to be monitored.
[2019-11-18] MEDS: METOPROLOL IR 25 MG TABLET PO (20:12)
[2019-11-18] MEDS: lisinopriL 20 MG TABLET PO (20:12)
[2019-11-18] MEDS: ATORVASTATIN 20 MG TABLET PO (20:12)
[2019-11-18 20:22] LABS: Troponin I < 0.012 ng/mL (0.01-0.034)
[2019-11-19] VITALS: BP 93/58; PULSE 57; RESP 16; TEMP 36.2; O2SAT 97
--- NOTE | 2019-11-19 00:52 | PC.NURSE ---
Addendum entered by Priscilla Rossi R.N. 11/19/19 04:30: Pt appears to be sleeping soundly. Respirations equal/unlabored. ECHO scheduled for tentatively 1100 Call light w/in reach, pt calls appropriately for needs. Continue w/plan of care Original Note: Pt resting quietly at this time Lungs clear, SpO2 98% RA Denies any discomfort at this time. Tele in place HL LAC intact/patent. Call light w/in reach, pt calls appropriately for needs.
[2019-11-19 05:52] VITALS: BP 106/52; PULSE 60; RESP 16; TEMP 36.7; O2SAT 96
[2019-11-19 06:25] LABS: Troponin I < 0.012 ng/mL (0.01-0.034)
--- NOTE | 2019-11-19 08:09 | P.PN_ITS ---
Subjective Subjective Date Patient Seen: 11/19/19 Time Patient Seen: 07:45 Interval history: Patient's admission and symptoms from yesterday are reviewed in the chart and with the patient. Also discussed briefly with Dr. Byrne. He continues to be asymptomatic. Maybe a tiny bit of fatigue still present. There been no dysrhythmias on telemetry Echo scheduled for later this morning MRI was unremarkable Exam Vital Signs (past 8 hours): - 11/19/19 05:52 Temperature 98.1 F Pulse Rate 60 Respiratory Rate 16 Blood Pressure 106/52 L Pulse Oximetry 96 Oxygen Delivery Method Room Air Oxygen Flow Rate 0 Objective Labs Result Diagrams: 11/18/19 07:35 11/18/19 07:35 Labs: Laboratory Results - last 24 hr 11/18/19 11/18/19 11/18/19 07:35 07:35 07:35 D-Dimer 2628 H Sodium 139 Potassium 3.7 Chloride 102 Carbon Dioxide 27 BUN 19 Creatinine 0.97 Estimated GFR > 60.0 BUN/Creatinine Ratio 19.6 Glucose 141 H Calcium 8.9 Magnesium 2.2 Total Bilirubin 0.7 AST 27 ALT 24 Alkaline Phosphatase 55 Troponin I < 0.012 NT-Pro-B Natriuret Pep 13 Total Protein 7.3 Albumin 4.3 Globulin 3.0 Albumin/Globulin Ratio 1.4 Lipase 226 Procalcitonin < 0.05 Urine Color Urine Appearance Urine pH Ur Specific [place] Urine Protein Urine Glucose (UA) Urine Ketones Urine Occult Blood Urine Nitrate Urine Bilirubin Urine Urobilinogen Ur Leukocyte Esterase Urine RBC Urine WBC Urine Bacteria Ur Culture Indicated? Micro UA Comment COVID-19 PCR 11/18/19 11/18/19 11/18/19 08:20 11:25 13:45 D-Dimer Sodium Potassium Chloride Carbon Dioxide BUN Creatinine Estimated GFR BUN/Creatinine Ratio Glucose Calcium Magnesium Total Bilirubin AST ALT Alkaline Phosphatase Troponin I < 0.012 NT-Pro-B Natriuret Pep Total Protein Albumin Globulin Albumin/Globulin Ratio Lipase Procalcitonin Urine Color Yellow Urine Appearance Clear Urine pH 7.0 Ur Specific [place] 1.015 Urine Protein Negative Urine Glucose (UA) Negative Urine Ketones Negative Urine Occult Blood Negative Urine Nitrate Negative Urine Bilirubin Negative Urine Urobilinogen 0.2 Ur Leukocyte Esterase Negative Urine RBC None seen Urine WBC None seen Urine Bacteria None seen Ur Culture Indicated? Cult not indicated Micro UA Comment Microscopic normal COVID-19 PCR Negative 11/18/19 11/19/19 19:45 05:42 D-Dimer Sodium Potassium Chloride Carbon Dioxide BUN Creatinine Estimated GFR BUN/Creatinine Ratio Glucose Calcium Magnesium Total Bilirubin AST ALT Alkaline Phosphatase Troponin I < 0.012 < 0.012 NT-Pro-B Natriuret Pep Total Protein Albumin Globulin Albumin/Globulin Ratio Lipase Procalcitonin Urine Color Urine Appearance Urine pH Ur Specific [place] Urine Protein Urine Glucose (UA) Urine Ketones Urine Occult Blood Urine Nitrate Urine Bilirubin Urine Urobilinogen Ur Leukocyte Esterase Urine RBC Urine WBC Urine Bacteria Ur Culture Indicated? Micro UA Comment COVID-19 PCR Assessment & Plan Assessment & Plan narrative: 1. TIA- I agree this seems most likely be a TIA although bit unusual in his presentation with more systemic symptoms I would normally expect. Patient also borderline hypotensive at times but that is his baseline and he has been asymptomatic from that for a long time. In part that is on purpose to prevent force trauma to his aorta given his known disease there and his past history In any event I would certainly recommend anti-platelet therapy in effort to prevent further events and to prevent a stroke. This seems to be a thromboembolic phenomenon most likely in this patient particular. He I think is at higher than average risk of stroke and to that and I would rather than use aspirin I think suggest use of clopidogrel. Patient is proven to have rather aggressive atherosclerotic disease in the past. Still has aortic dissection distally into the iliacs but I think is at high risk of further neurologic events and would more likely be benefited rather than harm by use of clopidogrel. 2. hypotension- patient treated for essential hypertension with multiple agents in modestly high doses. Patient has been modestly hypotensive at times dating back months and months. Do not believe current numbers are outside of his ordinary in do not believe there contributing to his presenting symptoms. Therefore would not recommend change in his antihypertensive therapy This point no other etiologies for stroke or TIA have been discovered. Assuming echo is unremarkable plan for discharge probably later today on his home meds with the addition of Plavix. Note: Greater than 30 minutes was spent evaluating the patient on the floor, including examining the patient, discussing clinical course with clinical and nursing staff, reviewing clinical course in the computer, preparing documentation and writing orders for continued management of care, discussing status with family as appropriate, reviewing plans for the next 24 hours with both patient/family and nursing staff as appropriate.
[2019-11-19] MEDS: CLOPIDOGREL 75 MG TABLET PO (08:29)
[2019-11-19] MEDS: METOPROLOL IR 25 MG TABLET PO (08:29)
[2019-11-19] MEDS: CHLORTHALIDONE 25 MG TABLET 12.5 MG PO (08:30)
[2019-11-19] MEDS: MULTIVITAMIN 1 TABLET 1 TAB PO (08:30)
[2019-11-19] MEDS: lisinopriL 20 MG TABLET PO (08:30)
[2019-11-19] MEDS: POTASSIUM CHLORIDE 8 MEQ TABLET PO (08:31)
[2019-11-19] MEDS: ENOXAPARIN 40 MG/0.4 ML SYRINGE SUBCUT (08:31)
[2019-11-19 08:32] VITALS: BP 116/71; PULSE 64; RESP 16; TEMP 36.3; O2SAT 97
[2019-11-19] MEDS: SODIUM CHLORIDE 0.9% FLUSH 10 ML IV (08:32)
--- NOTE | 2019-11-19 10:07 | PC.NURSE ---
Patient denies any dizziness, nausea, numbness, or disorientation. He is up independently in the room. No confusion. Heart rate is regular. He is resting now and his echo will be at 1300.
--- NOTE | 2019-11-19 15:59 | CM.DANOTE ---
Discharge Planning/Care Management DCP: assessment: case received, EMR reviewed and met with pt now. Introduced self and role. Pt is a 59 year old male who admitted to care of PCP: Dr. Barbosa yesterday afternoon. Dr. Barbosa saw him this morning and pt says they discussed plan for home, perhaps this evening, once ECHO results are reviewed. Payer: [facility] Admission status: OBS Pt and his both work in different departments of . 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 He says that his will be driving him home at d/c. Will follow again tomorrow if pt is still here. Pt is up and independent in his room. He says he is very hopeful that he will be ok for d/c later today. Advanced directive, confirm from FAMILY Start: 11/18/19 16:49 Freq: Q24H Status: Active Protocol: Document 11/18/19 22:45 HCW (Rec: 11/18/19 22:50 HCW [id number]) Co-Signed By Irena Steele RN 11/18/19 22:45 Advance Directive, confirm on record Time 21:00 Person contacted pt Copy received No CM Discharge Assessment Start: 11/19/19 15:58 Freq: Status: Active Protocol: Document 11/19/19 15:58 ITV (Rec: 11/19/19 15:59 ITV [id number]) Discharge Planning Assessment Advance Directives? Yes History Provided By Patient,Medical Record Has Patient been admitted in last 30 No days? Prior Living Arrangements House Household Members spouse Independent with ADL's Yes Is patient alert and oriented? Yes Review Status In Process
[2019-11-19 16:33] VITALS: BP 125/77; PULSE 63; RESP 16; TEMP 36.1; O2SAT 99
--- NOTE | 2019-11-19 16:40 | PM.DS.1 ---
History of Present Illness History of Present Illness Chief complaint: numb tongue, sweaty,dizziness now Narrative: Patient bed through the emergency room for questionable TIA. Patient came to work here and felt his usual self. Soon thereafter however he felt the the lightheaded and dizzy generally weak it and this felt poorly. Soon thereafter the that he noticed left-sided his tongue was numb and tingly his left arm seem to feel sort of achy in felt this odd. It additionally he apparently was somewhat confused and disoriented. He laid down and seemingly got better but the a symptoms seemed to progress so he was brought to the emergency room for further evaluation. During the course of time in the emergency room the symptoms above totally resolved till well currently when I seeing him he is back to his normal. No history of TIA no history of stroke or heart attack. He does have a history of repair of a thoracic aortic aneurysm 3 years ago with fairly large stent. He had history of hypertension hyperlipidemia on medication for same.. The patient was admitted for evaluation been of the above symptoms. {from Dr. Byrne's H&P} Discharge Providers Provider Date of admission: 11/18/19 13:32 Discharge Date: 11/19/19 Primary care physician: Sea Barbosa MD Discharge provider: Sea Barbosa MD Summary Hospital Course Discharge Diagnosis: 1. TIA 2. dissection of thoracoabdominal aorta, status post endovascular repair/stenting 2016 3. hyperlipidemia 4. Hypertension Hospital Course: patient presented with symptoms of a neurologic nature including confusion and some disorientation diaphoresis. Is modestly hypotensive. He was evaluated in the emergency department found to have no new findings. Angiography failed to reveal any change or difference with his aorta which is certainly complex history. MRI of the brain was unremarkable. Carotid ultrasound failed to show any significant stenosis. No dysrhythmias were noted on telemetry. Echocardiogram was performed but results not available at time of discharge Patient resolve symptoms within an hour so of onset. He had no recurrent or new symptoms. During the entirety of his hospitalization he was asymptomatic His therefore felt to be stable the although at high risk for repeat presume thromboembolic event. He was placed on Plavix in addition to his other medications. He was also modestly hypotensive but this is longstanding and was not felt to be a component to his presenting symptoms Patient be seen in the outpatient clinic for close follow-up Status at Discharge Cognitive/behavioral status at discharge: oriented Functional status at discharge: independent ambulation Overall status at discharge: patient is back to baseline Time Spent with Patient Time spent: Less than 30 minutes Exam Vital Signs (past 8 hours): - 11/19/19 16:33 Temperature 96.9 F L Pulse Rate 63 Respiratory Rate 16 Blood Pressure 125/77 Pulse Oximetry 99 Oxygen Delivery Method Room Air Oxygen Flow Rate 0 Objective Labs Result Diagrams: 11/18/19 07:35 11/18/19 07:35 Labs: Laboratory Results - last 24 hr 11/18/19 11/19/19 19:45 05:42 Troponin I < 0.012 < 0.012 Discharge Plan Discharge Plan Patient Disposition: Home Discharge orders & Medications Prescriptions: Continued multivitamin [Multiple Vitamins] 1 EACH tablet 1 tab PO QDAY Qty: 0 RF: 0 lisinopril 20 mg tablet 20 mg PO BID Qty: 180 RF: 3 metoprolol tartrate 50 mg tablet 25 mg PO BID RF: 0 potassium chloride 8 mEq tablet extended release 8 meq PO DAILY RF: 0 atorvastatin 20 mg tablet 20 mg PO BEDTIME RF: 0 chlorthalidone 25 mg tablet 12.5 mg PO DAILY RF: 0 No Action clopidogrel 75 mg tablet 75 mg PO DAILY Qty: 30 RF: 6 Follow up/Referrals: Sea Barbosa MD [Primary Care Provider] - 2 Weeks Discharge Health Status Multidrug resistant organism: No MDRO Diet/Activity/Treatments Diet: Low-sodium Visit Report/Discharge Packet Visit Report Forms: Patient Portal/API, Stroke Signs & Symptoms Discharge Data Primary Care Provider: Sea Barbosa Attending Provider: Sea Barbosa Admit Date/Time: 11/18/19 13:32
--- NOTE | 2019-11-19 16:50 | PC.NURSE ---
DC DC orders placed by , per pt MD has not been over to see him to discuss echo results and they are not viewable online for this RN to review with pt. Call to ' office and spoke with Irma who states per pt is okay to DC and follow up in 2 weeks. pt agreeable to the same and wanting to discharge. paperwork reviewed with pt. pt denies questions/concerns.
== END 2019-11-19 17:20 | disposition home or self-care (01) ==
LOC: ED 07:33 → AC 13:33
PROVIDERS: Admitting Provider Family Medicine; Emergency Provider Emergency Medicine; PCP Internal Medicine; Referring Provider Emergency Medicine; Visit Provider Internal Medicine
DX: G45.9 Transient cerebral ischemic attack, unspecified (principal); R42 Dizziness and giddiness; E11.9 Type 2 diabetes mellitus without complications; I10 Essential (primary) hypertension; E78.5 Hyperlipidemia, unspecified; G47.33 Obstructive sleep apnea (adult) (pediatric); J45.909 Unspecified asthma, uncomplicated; E66.9 Obesity, unspecified; Z11.59 Encounter for screening for other viral diseases
CPT/HCPCS: 36415; 70450; 70553; 71045; 71275; 80053; 81001; 83690; 83735; 83880; 84145; 84484; 85025; 85379; 87635; 93005; 93010; 93306; 93880; 96372; 99217; 99219; 99285; G0378; J1650; Q9967

== ENCOUNTER → 2019-12-01 | Outpatient (CLI) | payer OTHER, SELFPAY ==
[2019-11-18 15:39] VITALS: BMI 35.8
== END ==
PROVIDERS: PCP Internal Medicine; Referring Provider Internal Medicine; Visit Provider Internal Medicine
DX: Z23 Encounter for immunization (principal)
CPT/HCPCS: 90471; 90686

== ENCOUNTER → 2019-12-29 13:26 | Outpatient (CLI) | payer OTHER, SELFPAY ==
[2019-11-18 15:39] VITALS: BMI 35.8
[2019-12-31 07:30] LABS: COVID19 Sendout Not Detected (Not Detect)
== END ==
PROVIDERS: PCP Internal Medicine; Visit Provider Physician Assistant
DX: Z01.812 Encounter for preprocedural laboratory examination (principal)
CPT/HCPCS: 87635

== ENCOUNTER → 2020-01-01 10:50 | Outpatient (CLI) | payer OTHER, SELFPAY ==
[2019-11-18 15:39] VITALS: BMI 35.8
--- NOTE | 2020-01-01 | DI.NM.S_ITS ---
PROCEDURE: NM ANJALI PERF SPECT REST & STR Rest and exercise myocardial perfusion SPECT with gated imaging and ejection fraction RADIOPHARMACEUTICAL: 25.1 mCi Tc-99m sestamibi IV at rest and 26.0 mCi Tc-99m sestamibi IV at peak exercise. A two day-protocol was performed. INDICATIONS: Atherosclerotic heart disease of [place] coronary TECHNIQUE: Radiopharmaceutical was injected at peak stress test, and also at rest. SPECT images were obtained. SPECT myocardial perfusion images were displayed in short axis, horizontal long axis, and vertical long axis views. Gated images were reviewed using Shuropody software. COMPARISON: None. CARDIAC STRESS: A pharmaceutical nuclear stress test was conducted using lexiscan 0.4mg IV X1. Hemodynamic data: There is normal blood pressure and heart rate response to stress. Symptoms: Patient denied chest pain during exercise. EKG: No diagnostic EKG changes of ischemia; no ectopy. FINDINGS: Raw data: There is good myocardial labeling by radiotracer. No significant motion artifacts. Iwgh-vw-xejmq ratio is 0.26 (normal is less than 0.38 for sestamibi tracer, and less than 0.50 for thallium tracer). Left ventricle function: Gated images demonstrate normal left ventricle wall thickening. No segmental wall motion abnormality. No transient ischemic dilation; TID is 0.96 (normal less than 1.3). The left ventricle resting end-diastolic volume is 165 mL. Left ventricle stress ejection fraction is 67%; normal values are above 45%. Myocardial perfusion: There is moderately intense fixed defect in the inferior wall that resolves with prone imaging, suggesting diaphragmatic attenuation than true ischemia or infarction. IMPRESSION: Low risk, probably normal pharmaceutical nuclear stress test 1) No perfusion evidence of ischemia or infarction. There is moderately intense fixed defect in the inferior wall that resolves with prone imaging, suggesting diaphragmatic attenuation than true ischemia or infarction. 2) Enlarged left ventricle (EDV 165cc) with normal wall motion and normal systolic function (EF post stress 67%). 3) No ECG evidence of ischemia. 4) No angina during the study. 5) No prior nuclear stress test available for comparison. Dictated by: Carlotta White MD on 01/04/2020 at 15:22 Approved by: Carlotta White MD on 01/04/2020 at 15:25
== END ==
PROVIDERS: PCP Internal Medicine; Referring Provider Internal Medicine; Visit Provider Internal Medicine Cardiovascular Disease
DX: I25.10 Atherosclerotic heart disease of native coronary artery without angina pectoris (principal); I25.84 Coronary atherosclerosis due to calcified coronary lesion
CPT/HCPCS: 78452; 93016; 93017; 93018; A9502

== ENCOUNTER → 2020-03-02 16:35 | Outpatient (CLI) | payer OTHER, SELFPAY ==
[2019-11-18 15:39] VITALS: BMI 35.8
[2020-03-02] MEDS: COVID-19 VACC(MODERNA-1)/PF 100 MCG/0.5 ML VIAL IM (16:41)
== END ==
PROVIDERS: PCP Internal Medicine; Visit Provider Internal Medicine
DX: Z23 Encounter for immunization (principal)
CPT/HCPCS: 0011A; 91301

== ENCOUNTER → 2020-03-29 14:17 | Outpatient (CLI) | payer OTHER, SELFPAY ==
[2019-11-18 15:39] VITALS: BMI 35.8
[2020-03-29] MEDS: COVID-19 VACC #2, MRNA(MOD) 100 MCG/0.5 ML VIAL IM (14:21)
== END ==
PROVIDERS: PCP Internal Medicine; Visit Provider Internal Medicine
DX: Z23 Encounter for immunization (principal)
CPT/HCPCS: 0012A; 91301

== ENCOUNTER → 2020-05-30 07:17 | Outpatient (CLI) | payer OTHER, SELFPAY ==
[2019-11-18 15:39] VITALS: BMI 35.8
[2020-05-30 08:35] LABS: Alanine Aminotransferase 21 IU/L (<50); Albumin 4.3 g/dL (3.5-5.0); Albumin Globulin Ratio 1.6 (1.0-2.8); Alkaline Phosphatase 58 U/L (38-126); Aspartate Aminotransferase 24 IU/L (17-59); BUN Creatinine Ratio 16.2 (6-22); Bilirubin Total 0.6 mg/dL (0.2-1.3); Blood Urea Nitrogen 16 mg/dL (9-20); Calcium 9.3 mg/dL (8.4-10.2); Carbon Dioxide 29 mmol/L (22-32); Chloride 101 mmol/L (98-107); Cholesterol 148 mg/dL (140-199); Estimated Glomerular Filt Rate > 60.0 mL/min (>60); Globulin 2.7 g/dL (1.7-4.1); Glucose 108 mg/dL (70-100); HDL Cholesterol 41 mg/dL (40-60); HEMOLYSIS < 15 (0-50); LDL Cholesterol Calculated 78 mg/dL (<100); Potassium 3.9 mmol/L (3.4-5.1); Sodium 138 mmol/L (137-145); Triglycerides 144 mg/dL (35-150)
== END ==
PROVIDERS: PCP Internal Medicine; Referring Provider Internal Medicine; Visit Provider Internal Medicine
DX: E78.2 Mixed hyperlipidemia (principal); I10 Essential (primary) hypertension; Z98.890 Other specified postprocedural states
CPT/HCPCS: 36415; 80053; 80061

== ENCOUNTER 2020-07-26 13:20 | Emergency (ER) | payer OTHER, SELFPAY ==
[2019-11-18 15:39] VITALS: BMI 35.8
[2020-07-26 13:22] VITALS: BP 114/57; PULSE 67; RESP 14; TEMP 36.7; O2SAT 100; BMI 35.1
--- NOTE | 2020-07-26 13:38 | ED.GENADULT ---
HPI - General Adult General Chief complaint: Extremity Injury, Lower Stated complaint: left leg pain,fell this morning Time Seen by Provider: 07/26/20 13:22 Source: patient Mode of arrival: Ambulatory Limitations: no limitations History of Present Illness HPI narrative: Patient is a 60-year-old male on Plavix here for evaluation of left calf injury. Patient states that this morning he tripped over his dog or tripped trying to avoid hitting his dog and fell forward. Did not hit his head. There was no loss of consciousness. After this fall he started having discomfort in left calf muscle. He is able to walk but having some discomfort. He is on Plavix due to a aortic aneurysm/repair issue. Related Data Home Medications Medication Instructions Recorded Confirmed multivitamin [Multiple Vitamins] 1 tab PO QDAY #0 10/30/16 07/26/20 chlorthalidone 25 mg tablet 12.5 mg PO DAILY tab 11/20/18 07/26/20 potassium chloride 8 mEq 8 meq PO DAILY tab 04/23/19 07/26/20 tablet,extended release atorvastatin 20 mg PO BEDTIME 11/18/19 07/26/20 Previous Rx's Medication Instructions Recorded clopidogrel 75 mg tablet 75 mg PO DAILY #30 tab 11/19/19 lisinopril 20 mg tablet 10 mg PO BID #180 tab 02/29/20 metoprolol tartrate 25 mg tablet 12.5 mg PO BID #90 tab 05/30/20 sodium,potassium,mag sulfates 17.5 See Rx Instructions PO .COMPLEX 07/01/20 gram-3.13 gram-1.6 gram oral soln #354 ml Allergies Allergy/AdvReac Type Severity Reaction Status Date / Time Iodinated Contrast Media AdvReac eye Verified 07/26/20 13:27 swelling, nausea, Review of Systems Constitutional Constitutional: Reports system reviewed and no additional complaints, except as documented Musculoskeletal Comments: Left calf muscle pain and swelling Integumentary/Breasts Skin/Breast: Reports system reviewed and no additional complaints, except as documented Hematologic/Lymphatic On Anticoagulants: Yes (Plavix) Patient History Medical History (Updated 07/26/20 @ 13:46 by Larry Townsend DO) Aneurysm (~2017) 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 Social History marital status: number of children: 1 household members: spouse lives independently: Yes caregiver/support person: No housing: house pets and animals: Yes education level: other (Bachelors) occupational status: employed [employer]: [employer] leisure activities: fishing, reading and other (Golf, Watching TV, Building things in yard) Smoking Status: Never smoker Tobacco: How many years used: 0 quit status: quit date established (Never Started) alcohol intake: current substance use type: does not use Smoking Status: Never smoker alcohol intake frequency: holidays/special occasions only Substance Use Type: does not use Exam Initial Vital Signs Initial Vital Signs: Vital Signs Temperature 98.0 F 07/26/20 13:22 Pulse Rate 67 07/26/20 13:22 Respiratory Rate 14 07/26/20 13:22 Blood Pressure 114/57 L 07/26/20 13:22 Pulse Oximetry 100 07/26/20 13:22 Const General: cooperative and comfortable Limitations: mental status not altered HENMT Head: normal to inspection and normocephalic Cardio Pulses: dorsalis pedis present on the left Skin Lesions: no lesions Rashes: no rashes Neuro Gait: normal gait and other (Walks with a limp favoring his left leg) Extrem General: capillary refill normal Other: Patient does have tenderness to his left calf muscle. The Achilles tendon is intact to palpation. He can flex and extend at his left ankle but does have discomfort on the lateral head of the calf muscle with dorsiflexion of the left ankle. Bilateral hamstrings on the left are intact. Psych Appearance: grossly normal and well kempt Course Vital Signs Vital signs: Vital Signs - 8 hr 07/26/20 13:22 Temperature 98.0 F Pulse Rate 67 Respiratory Rate 14 Blood Pressure 114/57 L Pulse Oximetry 100 Medical Decision Making MDM Narrative Medical decision making narrative: Low suspicion for DVT. Low suspicion for fracture. I do suspect that he is injured the lateral head of his gastrocnemius muscle on the left. I have low suspicion that he is torn this muscle and low suspicion that he has torn his Achilles tendon based on his exam today. I feel that we can hold on radiologic studies. We discussed conservative treatment. Discussed return precautions and follow-up instructions. He expressed understanding and agreement. Discharge Plan Departure Patient Disposition: Home Clinical Impression: Strain of left calf muscle Instructions: DI for Calf Muscle Strain Activity Restrictions/Additional Instructions: Continue all of your medications as directed. I would not be surprised if you develop bruising around her left ankle and left foot given your presentation today. Recommend you contact your primary doctor for follow-up and to discuss any further referrals if needed. Return to the emergency department for any new or worsening symptoms Prescriptions: No Action multivitamin [Multiple Vitamins] 1 EACH tablet 1 tab PO QDAY Qty: 0 RF: 0 clopidogrel 75 mg tablet 75 mg PO DAILY Qty: 30 RF: 6 Suprep Bowel Prep Kit 17.5-3.13-1.6 gram recon soln See Rx Instructions PO .COMPLEX Qty: 354 RF: 0 metoprolol tartrate 25 mg tablet 12.5 mg PO BID Qty: 90 RF: 3 potassium chloride 8 mEq tablet extended release 8 meq PO DAILY RF: 0 lisinopril 20 mg tablet 10 mg PO BID Qty: 180 RF: 3 atorvastatin 20 mg tablet 20 mg PO BEDTIME RF: 0 chlorthalidone 25 mg tablet 12.5 mg PO DAILY RF: 0 Referrals: Sea Barbosa MD [Primary Care Provider] -
== END 2020-07-26 14:03 | disposition home or self-care (01) ==
PROVIDERS: Emergency Provider Emergency Medicine; PCP Internal Medicine
DX: S86.912A Strain of unspecified muscle(s) and tendon(s) at lower leg level, left leg, initial encounter (principal); W19.XXXA Unspecified fall, initial encounter
CPT/HCPCS: 99281

== ENCOUNTER → 2020-08-11 09:19 | Outpatient (CLI) | payer OTHER, SELFPAY ==
[2019-11-18 15:39] VITALS: BMI 35.8
[2020-08-11 10:00] LABS: COVID19 -Nasal RAPID Negative (Negative)
== END ==
PROVIDERS: PCP Internal Medicine; Visit Provider Specialist
DX: Z20.822 Contact with and (suspected) exposure to COVID-19 (principal)
CPT/HCPCS: 87635; C9803

== ENCOUNTER 2020-08-12 06:35 | Day surgery (SDC) | payer OTHER, SELFPAY ==
[2019-11-18 15:39] VITALS: BMI 35.8
--- NOTE | 2020-08-12 | PATH_ITS ---
[facility] Accession Number: [id number] . 01 Material submitted: . PART A: colon - COLON POLYP BIOPSY AT 65CM PART B: ileo-cecal valve - ILEO-CECAL VALVE BIOPSY PART C: colon - ASCENDING COLON POLYP BIOPSY PART D: colon - COLON POLYP BIOPSY AT 30CM X3 PART E: rectum - RECTAL POLYP BIOPSY AT 10CM . 02 Diagnosis: A. Colon Polyp at 65 cm, Biopsy: Tubular adenoma. . B. Ileocecal Valve, Biopsy: Focal active colitis; please see comment. Negative for granulomata, dysplasia or malignancy. . C. Ascending Colon Polyp, Biopsy: Tubular adenoma. . D. Colon Polyps at 30 cm, Biopsies: Fragments of hyperplastic polyp and fragment of colonic mucsoa with prominent benign lymphoid aggregate (three polyps removed). . E. Rectal Polyp at 10 cm, Biopsy: Tubular adenoma. [facility] 08/17/2020 0939 Local . 02 Comment: The findings in the ileocecal valve biopsy are most suggestive of an acute self-limited colitis (infectious versus drug/toxin induced) versus bowel prep artifact. . 02 Electronically signed: . Kali Joshua MD, PhD, Pathologist NPI- [id number] . 01 Gross description: . Part A: COLON POLYP BIOPSY AT 65CM: Received in formalin is 1 fragment(s) of connelly, soft tissue measuring 0.7 x 0.6 x 0.6 cm submitted entirely in 1 cassette(s) Part B: ILEO-CECAL VALVE BIOPSY: Received in formalin are multiple fragment(s) of connelly, soft tissue measuring 0.1 x 0.1 x 0.1 cm to 0.5 x 0.3 x 0.3 cm submitted entirely in 1 cassette(s) Part C: ASCENDING COLON POLYP BIOPSY: Received in formalin are 3 fragment(s) of connelly, soft tissue measuring 0.1 x 0.1 x 0.1 cm to 0.3 x 0.2 x 0.2 cm submitted entirely in 1 cassette(s) Part D: COLON POLYP BIOPSY AT 30CM X3: Received in formalin are multiple fragment(s) of connelly, soft tissue measuring 0.1 x 0.1 x 0.1 cm to 0.4 x 0.2 x 0.2 cm submitted entirely in 1 cassette(s) Part E: RECTAL POLYP BIOPSY AT 10CM: Received in formalin is 1 fragment(s) of connelly, soft tissue measuring 0.7 x 0.5 x 0.5 cm submitted entirely in 1 cassette(s) /JOSE 08/15/2020 1915 Local . 02 Pathologist provided ICD-10: D12.6, D12.2, D12.8, K63.5, K52.9 . 02 CPT . 656473, [id number], 182824, [id number], [id number] Performed at: 01 [facility] Cyt[facility] [address] [facility] [place], [place], [place] [id number] MD Bharat Tai MD Phone: [phone] Performed at: 02 [facility] [place] [address] [place], [place] [id number] MD Karolyn Eaton MD Phone: [phone]
[2020-08-12 07:19] VITALS: BP 118/76; PULSE 70; RESP 16; TEMP 35.9; O2SAT 97; BMI 34.3
[2020-08-12 07:42] VITALS: BMI 34.3
[2020-08-12] MEDS: LACTATED RINGERS 1,000 ML 42 ML IV ×2 (07:51→09:09)
--- NOTE | 2020-08-12 07:53 | PM.HP.1 ---
History of Present Illness History of Present Illness Date Patient Seen: 08/12/20 Time Patient Seen: 07:53 Chief complaint: SDC Narrative: Patient is a gentleman here for a screening colonoscopy. His last exam was 6 years ago. He has a personal history of polyps. No family history of colon cancer. 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 Social History: household members spouse lives independently Yes caregiver/support person No Tobacco & Substance use: Smoking Status Never smoker alcohol intake current alcohol intake frequency holiday/special occasion Substance Use Type does not use Meds Home Medications and Allergies Home Medications Medication Instructions Recorded Confirmed Type multivitamin [Multiple Vitamins] 1 tab PO QDAY #0 10/30/16 08/12/20 History chlorthalidone 25 mg tablet 12.5 mg PO DAILY tab 11/20/18 08/12/20 History potassium chloride 8 mEq 8 meq PO DAILY tab 04/23/19 08/12/20 History tablet,extended release atorvastatin 20 mg PO BEDTIME 11/18/19 08/12/20 History clopidogrel 75 mg tablet 75 mg PO DAILY #30 tab 11/19/19 08/12/20 Rx lisinopril 20 mg tablet 10 mg PO BID #180 tab 02/29/20 08/12/20 Rx metoprolol tartrate 25 mg tablet 12.5 mg PO BID #90 tab 05/30/20 08/12/20 Rx sodium,potassium,mag sulfates 17.5 See Rx Instructions PO .COMPLEX 07/01/20 08/12/20 Rx gram-3.13 gram-1.6 gram oral soln #354 ml Allergies Allergy/AdvReac Type Severity Reaction Status Date / Time Iodinated Contrast Media AdvReac eye Verified 08/12/20 07:10 swelling, nausea, Review of Systems Review of Systems Narrative: No cardiac or pulmonary systems at this time. He has a history of asthma in the past. Has not used an inhaler for a long time. No cardiac symptoms. Exam Vital Signs (past 8 hours): - 08/12/20 07:19 Temperature 96.6 F L Pulse Rate 70 Respiratory Rate 16 Blood Pressure 118/76 Pulse Oximetry 97 Oxygen Delivery Method Room Air Narrative Exam Narrative: Pleasant cooperative patient no apparent distress. Lungs are clear to auscultation. No rales or rhonchi. Heart regular rate and rhythm no murmur gallop. Abdomen is soft nontender without mass. No obvious hernias. Patient is alert and oriented x3. Assessment & Plan Assessment & Plan narrative: The patient for a screening colonoscopy. I have discussed the procedure with them. Risks of bleeding, perforation which would necessitate major operation, failure to find remove all lesions, the potential tattoo were all discussed. All questions were answered. They wished to proceed.
--- NOTE | 2020-08-12 07:54 | PM.PREOP ---
Pre-operative Note COVID-19 COVID-19 status: Negative Result date/Date tested (Pos, Neg/Pending): 08/11/20 Interval Note History & Physical reviewed/Exam performed by Physician: Yes Changes to H&P: No ASA Class (for procedural sedation): III
[2020-08-12] MEDS: MIDAZOLAM 5 MG/5 ML VIAL IV (08:03)
[2020-08-12] MEDS: fentaNYL 250 MCG/5 ML INJ IV (08:04)
--- NOTE | 2020-08-12 08:43 | PM.OP.ENDO ---
Operative Date/Time/Diagnoses Date of procedure: 08/12/20 Time of procedure: 08:43 Pre-op diagnosis: History of polyps. Last exam 6 years ago. Post-op diagnosis: same (Multiple polyps. Sigmoid diverticulosis.) Procedure & Clinicians Study performed: Colonoscopy with hot snare polypectomy and cold biopsy. Same procedure as scheduled: Yes Indications: Screening in high risk patient Surgeon: Garland Harris Procedure Notes SCOAP/Timeout: Performed Procedure in detail: The patient was placed in the left lateral decubitus position and underwent IV sedation directed by the surgeon consisting of fentanyl and Versed. I had to use minimal sedation due to his rather low blood pressure. Throughout the procedure however he was readily responsive. Digital exam was unremarkable. I could not feel his prostate due to his anatomy in the length of my finger. The scope was inserted and advanced through the rectum into the sigmoid, descending, transverse, and ascending colon. Patient was noted to have a polyp at about 65 cm from the anal verge which I snared on the way in. He was also noted to have sigmoid diverticulosis. With the addition of pressure in a stiffener, t he cecum was reached identified by the ileocecal valve and the appendiceal opening. The ileocecal valve had what may have been a so called suction polyp but may also been a small flat neoplastic lesion. I biopsied it and completely removed it. The scope was gradually brought out. Additional Polyps were found at the ascending colon removed with biopsy forceps, 3 small polyps at 30 cm from the anal verge removed with biopsy forceps, and a slightly larger lesion at 10 cm which was snared with a hot snare and removed.. The scope ultimately was retroflexed in the rectum. The appearance was normal. The scope was removed and the patient tolerated the procedure well. Scope withdrawal time: 8 minutes(19 total) Sedation minutes: 40 Findings: diverticulosis and polyp Specimen(s): other (Multiple polyps) Complications: none Post-procedure Recommendations: Colonscopy in 5 years Follow up: as needed Disposition: PACU
[2020-08-12 08:50] VITALS: BP 81/40; PULSE 53; RESP 16; TEMP 36.2; O2SAT 98
[2020-08-12 08:55] VITALS: BP 90/59; PULSE 51; RESP 14; O2SAT 96
[2020-08-12 09:00] VITALS: BP 98/46; PULSE 52; RESP 14; O2SAT 97
[2020-08-12 09:25] VITALS: BP 113/69; PULSE 51; RESP 16; O2SAT 98
== END 2020-08-12 09:27 | disposition home or self-care (01) ==
PROVIDERS: PCP Internal Medicine; Referring Provider Internal Medicine; Visit Provider Specialist
PROC: 0DJD8ZZ Inspection of Lower Intestinal Tract, Via Natural or Artificial Opening Endoscopic (ICD-10-PCS; CPT 45378; principal; 2020-08-12 07:45)
DX: Z12.11 Encounter for screening for malignant neoplasm of colon (principal); Z86.010 Personal history of colon polyps; G47.33 Obstructive sleep apnea (adult) (pediatric); E78.5 Hyperlipidemia, unspecified; I10 Essential (primary) hypertension; K57.30 Diverticulosis of large intestine without perforation or abscess without bleeding; K21.9 Gastro-esophageal reflux disease without esophagitis; D12.6 Benign neoplasm of colon, unspecified; D12.2 Benign neoplasm of ascending colon; K52.9 Noninfective gastroenteritis and colitis, unspecified; D12.8 Benign neoplasm of rectum
CPT/HCPCS: 45385; 99152; 99153; J2250; J3010

== ENCOUNTER 2020-12-01 19:03 | Inpatient (IN) | payer OTHER, SELFPAY ==
[2019-11-18 15:39] VITALS: BMI 35.8
[2020-12-01] VITALS (52 sets, daily range): BP systolic 89–174; BP diastolic 50–95; PULSE 54–87; RESP 0–29; O2SAT 90–100; BMI 36.2
--- NOTE | 2020-12-01 19:02 | DI.CT.S_ITS ---
PROCEDURE: CT HEAD/BRAIN WO CON INDICATIONS: stroke TECHNIQUE: Noncontrast 4.5 mm thick angled axial sections acquired from the foramen magnum to the vertex, with coronal and sagittal reformats. For radiation dose reduction, the following was used: automated exposure control, adjustment of mA and/or kV according to patient size. COMPARISON: [facility], CT, CT HEAD/BRAIN WO CON, 11/18/2019, 11:52. FINDINGS: Image quality: Excellent. CSF spaces: Basal cisterns are patent. No extra-axial fluid collections. Ventricles are normal in size and shape. Brain: No midline shift. No intracranial masses or hemorrhage. [place]-white matter interface is normal. Skull and face: Calvarium and visualized facial bones are intact, without suspicious lesions. Sinuses: Visualized sinuses and mastoids are clear. IMPRESSION: Negative head CT. No evidence of stroke, hemorrhage, or mass. Dictated by: Edmund Haque M.D. on 12/01/2020 at 19:23 Approved by: Edmund Haque M.D. on 12/01/2020 at 19:24
--- NOTE | 2020-12-01 19:03 | DI.CT.S_ITS ---
PROCEDURE: CT ANGIO HEAD AND NECK INDICATIONS: stroke TECHNIQUE: After the administration of intravenous contrast, 1 mm thick sections acquired from the aortic arch through the [place]. Post-contrast 4.5 mm thick sections then re-acquired from the foramen magnum to the vertex. 3-dimensional dxsuxyx-ikoqgaqky-lwgmlvkygv (MIP) and/or volume rendering reformats were acquired of the central intracranial vasculature and neck separately. COMPARISON: [facility], CT, CT HEAD/BRAIN WO CON, 12/01/2020, 19:09. FINDINGS: Image quality: Excellent. BRAIN: CSF spaces: Ventricles are normal in size and shape. Basal cisterns are patent. No extra-axial fluid collections. Brain: No midline shift. No intracranial bleeds or masses. Santiago-white matter interface appears intact. Skull and face: Calvarium and facial bones appear intact, without suspicious lesions. Orbits appear normal. Sinuses: Sinuses and mastoids are clear. HEAD CT ANGIOGRAPHY: Anterior circulation: Intracranial internal carotid arteries are normal in size and flow. The flow within the paired anterior cerebral arteries is normal and symmetric. The flow within the middle cerebral arteries is normal and symmetric. The anterior communicating artery is seen. No aneurysms are seen. Posterior circulation: The distal right vertebral artery is diminutive and may end in PICA. The left vertebral artery is dominant. The basilar artery is widely patent. Flow within the posterior cerebral arteries is normal and symmetric. No aneurysms are seen. NECK CT ANGIOGRAPHY: Carotid system: The great vessels demonstrate a conventional anatomy as they arise from the aortic arch. The origins of the common carotid arteries appear patent. The common carotid arteries demonstrate normal caliber and courses. The bifurcation regions are both widely patent. The internal carotid arteries demonstrate normal calibers. There is significant tortuosity of the high cervical right internal carotid artery. Aortic endograft extends to just beyond the origin of the left subclavian artery down the transverse arch and descending thoracic aorta. Question short segment chronic occlusion of the origin of the left subclavian. Posterior circulation: The right vertebral artery is diffusely diminutive and may end in PICA. The left vertebral artery is dominant and gives rise to a patent basilar artery. Soft tissues: Visualized neck soft tissues demonstrate no suspicious abnormalities. ET tube is approximately 1.75 cm above the karley. Repositioning is suggested. Bones: No suspicious bony lesions. Visualized cervical spine appears normally aligned. IMPRESSION: 1. No evidence acute stroke, hemorrhage, or mass. 2. No evidence of intracranial arterial stenosis, aneurysms, occlusions, or focal filling defects. 3. Diminutive right vertebral artery, likely ending in PICA, incidentally noted. 4. Widely patent internal carotids. 5. Remote endograft placement extending from the arch aorta down the descending thoracic aorta. 6. Question possible chronic short segment occlusion of the left subclavian artery. 7. ET tube tip approximately 1.75 cm above the karley. Comment: Findings were discussed with Dr. Rodrigues on 12/01/2020 at 1943 hours Any quantitative measurements of stenosis were performed using NASCET criteria. Dictated by: Edmund Haque M.D. on 12/01/2020 at 19:32 Approved by: Edmund Haque M.D. on 12/01/2020 at 19:43
--- NOTE | 2020-12-01 19:15 | ED_ITS ---
HPI - Altered Mental Status <Barry Rodrigues DO - Last Filed: 12/02/20 04:51> General Chief Complaint: Unresponsive Stated Complaint: Code Stroke Time Seen by Provider: 12/01/20 19:06 History of Present Illness HPI narrative: 60-year-old male nonsmoker with history of hypertension, hyperlipidemia, TIA and prior aortic dissection repair with endovascular approach presents by EMS in critical condition. He had been in his normal state of health until just after 6:00 p.m. when he approached his and said I do not feel right, sooner after he collapsed. when they arrived he had GCS of 3, snoring respirations. He was promptly intubated with an 8 0 endotracheal tube, sedation included ketamine 250 mg times to, rocuronium administered at 6:55 p.m.. Patient activated as a code stroke and taken directly to CT scan. Related Data Home Medications Medication Instructions Recorded Confirmed multivitamin (Multiple Vitamins) 1 tab PO QDAY #0 10/30/16 08/12/20 chlorthalidone 25 mg tablet 12.5 mg PO DAILY tab 11/20/18 12/02/20 potassium chloride 8 mEq 8 meq PO DAILY tab 04/23/19 12/02/20 tablet,extended release atorvastatin 20 mg tablet 20 mg PO BEDTIME 11/18/19 12/02/20 Previous Rx's Medication Instructions Recorded clopidogrel 75 mg tablet 75 mg PO DAILY #30 tab 11/19/19 lisinopril 20 mg tablet 10 mg PO BID #180 tab 02/29/20 metoprolol tartrate 25 mg tablet 12.5 mg PO BID #90 tab 05/30/20 sodium,potassium,mag sulfates 17.5 See Rx Instructions PO .COMPLEX 07/01/20 gram-3.13 gram-1.6 gram oral soln #354 ml (Suprep Bowel Prep Kit) Allergies Allergy/AdvReac Type Severity Reaction Status Date / Time Iodinated Contrast Media AdvReac eye Verified 08/12/20 07:10 swelling, nausea, Review of Systems <Barry Rodrigues DO - Last Filed: 12/02/20 04:51> Review of Systems ROS Unobtainable: Unobtainable due to medical condition Patient History <Barry Rodrigues DO - Last Filed: 12/02/20 04:51> Medical History (Updated 12/02/20 @ 04:50 by Barry Rodrigues DO) Aneurysm (~2017) 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 Social History marital status: number of children: 1 household members: spouse lives independently: Yes caregiver/support person: No housing: house pets and animals: Yes education level: other (Bachelors) occupational status: employed pablo/[employer]: [employer] leisure activities: fishing, reading and other (Golf, Watching TV, Building things in yard) Smoking Status: Never smoker Tobacco: How many years used: 0 quit status: quit date established (Never Started) alcohol intake: current substance use type: does not use Smoking Status: Never smoker alcohol intake frequency: holidays/special occasions only Substance Use Type: does not use Exam <Barry Rodrigues DO - Last Filed: 12/02/20 04:51> Narrative Exam Narrative: GENERAL: [60] year old patient appears stated age. In significant distress, intubated, sedated HEAD: Atraumatic. Normocephalic. EYES: Pupils pinpoint. Extraocular motions intact. No scleral icterus. No injection or drainage. ENT: Nose without bleeding, purulent drainage. Throat without erythema, tonsillar hypertrophy or exudate. Airway patent. NECK: Trachea midline. Non tender CARDIOVASCULAR: Regular rate and rhythm without murmurs, gallops, or rubs. RESPIRATORY: Clear to auscultation. Breath sounds equal bilaterally. No wheezes, rales, or rhonchi. GASTROINTESTINAL: Abdomen soft, non-tender, nondistended. EXTREMITIES: No edema or joint tenderness. BACK: Nontender without deformity or crepitance. No flank tenderness. NEURO: AOx3. SKIN: No rash or erythema of visible areas Initial Vital Signs Initial Vital Signs: Vital Signs Pulse Rate 84 12/01/20 19:19 Respiratory Rate 20 12/01/20 19:19 Blood Pressure 135/78 12/01/20 19:19 Pulse Oximetry 100 12/01/20 19:19 <Cherelle Rueda MD - Last Filed: 12/01/20 21:54> Initial Vital Signs Initial Vital Signs: Vital Signs Pulse Rate 84 12/01/20 19:19 Respiratory Rate 20 12/01/20 19:19 Blood Pressure 135/78 12/01/20 19:19 Pulse Oximetry 100 12/01/20 19:19 Course <Barry Rodrigues DO - Last Filed: 12/02/20 04:51> Course Course Narrative: bedside FAST demonstrates no obvious fluid collections. Aorta tracked, AAA noted. Orders Ordered: ED Orders 12/01/20 21:54 Education, smoking cessation ONGOING Acetaminophen (Acetaminophen 650 Mg Supp) 650 mg SC Q4HR PRN PRN Reason: Fever/Mild Pain (1-3) Hydromorphone HCl (Hydromorphone 1 Mg Inj) 1 mg IV Q4HR PRN PRN Reason: Pain, Severe (7-10) Last Admin: 12/02/20 00:42 Dose: 1 mg Documented by: ALVARADO Sodium Chloride (Normal Saline 0.9%) 1,000 mls @ 125 mls/hr IV CONT LORENA Last Admin: 12/01/20 19:39 Dose: 125 mls/hr Documented by: VERONICA Dexmedetomidine HCl 400 mcg/ (Sodium Chloride) 104 mls @ 6.133 mls/hr IV TITRATE LORENA; Protocol Last Admin: 12/02/20 04:06 Dose: 0.45 mcg/kg/hr, 13.798 mls/hr Documented by: Titration: 12/02/20 04:06 Dose: 0.45 mcg/kg/hr, 13.798 mls/hr Documented by: Titration: 12/02/20 02:15 Dose: 0.45 mcg/kg/hr, 13.798 mls/hr Documented by: Titration: 12/01/20 22:46 Dose: 0.39 mcg/kg/hr, 12 mls/hr Documented by: Titration: 12/01/20 21:45 Dose: 0.49 mcg/kg/hr, 15 mls/hr Documented by: Titration: 12/01/20 21:28 Dose: 0.39 mcg/kg/hr, 12 mls/hr Documented by: Titration: 12/01/20 21:17 Dose: 0.29 mcg/kg/hr, 9 mls/hr Documented by: Admin: 12/01/20 20:51 Dose: 0.2 mcg/kg/hr, 6.133 mls/hr Documented by: VERONICA Lactated Ringer's (Lactated Ringers) 1,000 mls @ 100 mls/hr IV CONT LORENA Last Admin: 12/02/20 00:35 Dose: 100 mls/hr Documented by: ALVARADO Metoclopramide HCl (Metoclopramide 10 Mg/2 Ml Inj) 10 mg IV Q6HR PRN PRN Reason: Nausea And Vomiting Naloxone HCl (Naloxone 0.4 Mg/Ml Vial) 0.2 mg IV Q2MIN PRN PRN Reason: Opiate Reversal Ondansetron HCl (Ondansetron 4 Mg/2 Ml Inj) 4 mg IV Q6HR PRN PRN Reason: Nausea And Vomiting Discontinued Medications Fentanyl (Fentanyl 100 Mcg/2 Ml Inj) 100 mcg IV NOW ONE Stop: 12/01/20 19:27 Last Admin: 12/01/20 19:53 Dose: 100 mcg Documented by: VERONICA Fentanyl (Fentanyl 100 Mcg/2 Ml Inj) 120 mcg 1 mcg/kg (120 mcg) IV NOW ONE Stop: 12/01/20 20:52 Last Admin: 12/01/20 20:53 Dose: 120 mcg Documented by: VERONICA Fentanyl (Fentanyl 100 Mcg/2 Ml Inj) 100 mcg IV NOW ONE Stop: 12/01/20 23:43 Last Admin: 12/01/20 23:45 Dose: 100 mcg Documented by: VERONICA Propofol (Propofol) 1,000 mg in 100 mls @ 3.538 mls/hr IV TITRATE LORENA; Protocol Last Titration: 12/01/20 20:55 Dose: 0 mcg/kg/min, 0 mls/hr Documented by: Titration: 12/01/20 20:22 Dose: 14.13 mcg/kg/min, 10 mls/hr Documented by: Admin: 12/01/20 19:55 Dose: 5 mcg/kg/min, 3.538 mls/hr Documented by: VERONICA POTASSIUM CHLORIDE IN WATER (Potassium Cl 10 Meq/100 Ml Camilla) 10 meq in 100 mls @ 100 mls/hr IV Q1H LORENA Stop: 12/02/20 01:44 Last Admin: 12/02/20 01:35 Dose: 100 mls/hr Documented by: Infusion: 12/02/20 01:35 Dose: 100 mls/hr Documented by: Admin: 12/02/20 00:38 Dose: 100 mls/hr Documented by: ALVARADO Naloxone HCl (Naloxone 0.4 Mg/Ml Vial) 0.2 mg IV Q2MIN PRN PRN Reason: Opiate Reversal Naloxone HCl (Naloxone 0.4 Mg/Ml Vial) 0.2 mg IV Q2MIN PRN PRN Reason: Opiate Reversal Consultations Consultation #1: call to Dr. 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 Consultation #3: Three way call with tele ICU and hospitalist. Happy to accept Vital Signs Vital signs: Vital Signs - 8 hr 12/01/20 20:55 12/01/20 21:00 12/01/20 21:05 Pulse Rate 65 54 L 56 L Respiratory Rate 21 20 20 Blood Pressure 148/72 H 93/50 L 93/53 L Pulse Oximetry 100 97 99 12/01/20 21:10 12/01/20 21:15 12/01/20 21:20 Pulse Rate 64 60 62 Respiratory Rate 22 21 20 Blood Pressure 89/57 L 133/71 136/76 Pulse Oximetry 97 98 99 12/01/20 21:25 12/01/20 21:30 12/01/20 21:35 Pulse Rate 68 64 61 Respiratory Rate 28 H 29 H 28 H Blood Pressure 131/65 131/70 129/73 Pulse Oximetry 99 99 98 12/01/20 21:40 12/01/20 21:45 12/01/20 21:50 Pulse Rate 60 61 60 Respiratory Rate 20 21 21 Blood Pressure 134/76 123/75 121/73 Pulse Oximetry 98 98 98 12/01/20 21:55 12/01/20 22:00 12/01/20 22:05 Pulse Rate 61 61 65 Respiratory Rate 21 20 24 Blood Pressure 123/76 120/72 107/66 Pulse Oximetry 96 94 96 <Cherelle Rueda MD - Last Filed: 12/01/20 21:54> Orders Ordered: ED Orders 12/01/20 21:54 Education, smoking cessation ONGOING Acetaminophen (Acetaminophen 650 Mg Supp) 650 mg SC Q4HR PRN PRN Reason: Fever/Mild Pain (1-3) Hydromorphone HCl (Hydromorphone 1 Mg Inj) 1 mg IV Q4HR PRN PRN Reason: Pain, Severe (7-10) Last Admin: 12/02/20 00:42 Dose: 1 mg Documented by: ALVARADO Sodium Chloride (Normal Saline 0.9%) 1,000 mls @ 125 mls/hr IV CONT LORENA Last Admin: 12/01/20 19:39 Dose: 125 mls/hr Documented by: VERONICA Dexmedetomidine HCl 400 mcg/ (Sodium Chloride) 104 mls @ 6.133 mls/hr IV TITRATE LORENA; Protocol Last Admin: 12/02/20 04:06 Dose: 0.45 mcg/kg/hr, 13.798 mls/hr Documented by: Titration: 12/02/20 04:06 Dose: 0.45 mcg/kg/hr, 13.798 mls/hr Documented by: Titration: 12/02/20 02:15 Dose: 0.45 mcg/kg/hr, 13.798 mls/hr Documented by: Titration: 12/01/20 22:46 Dose: 0.39 mcg/kg/hr, 12 mls/hr Documented by: Titration: 12/01/20 21:45 Dose: 0.49 mcg/kg/hr, 15 mls/hr Documented by: Titration: 12/01/20 21:28 Dose: 0.39 mcg/kg/hr, 12 mls/hr Documented by: Titration: 12/01/20 21:17 Dose: 0.29 mcg/kg/hr, 9 mls/hr Documented by: Admin: 12/01/20 20:51 Dose: 0.2 mcg/kg/hr, 6.133 mls/hr Documented by: VERONICA Lactated Ringer's (Lactated Ringers) 1,000 mls @ 100 mls/hr IV CONT LORENA Last Admin: 12/02/20 00:35 Dose: 100 mls/hr Documented by: ALVARADO Metoclopramide HCl (Metoclopramide 10 Mg/2 Ml Inj) 10 mg IV Q6HR PRN PRN Reason: Nausea And Vomiting Naloxone HCl (Naloxone 0.4 Mg/Ml Vial) 0.2 mg IV Q2MIN PRN PRN Reason: Opiate Reversal Ondansetron HCl (Ondansetron 4 Mg/2 Ml Inj) 4 mg IV Q6HR PRN PRN Reason: Nausea And Vomiting Discontinued Medications Fentanyl (Fentanyl 100 Mcg/2 Ml Inj) 100 mcg IV NOW ONE Stop: 12/01/20 19:27 Last Admin: 12/01/20 19:53 Dose: 100 mcg Documented by: VERONICA Fentanyl (Fentanyl 100 Mcg/2 Ml Inj) 120 mcg 1 mcg/kg (120 mcg) IV NOW ONE Stop: 12/01/20 20:52 Last Admin: 12/01/20 20:53 Dose: 120 mcg Documented by: VERONICA Fentanyl (Fentanyl 100 Mcg/2 Ml Inj) 100 mcg IV NOW ONE Stop: 12/01/20 23:43 Last Admin: 12/01/20 23:45 Dose: 100 mcg Documented by: VERONICA Propofol (Propofol) 1,000 mg in 100 mls @ 3.538 mls/hr IV TITRATE LORENA; Protocol Last Titration: 12/01/20 20:55 Dose: 0 mcg/kg/min, 0 mls/hr Documented by: Titration: 12/01/20 20:22 Dose: 14.13 mcg/kg/min, 10 mls/hr Documented by: Admin: 12/01/20 19:55 Dose: 5 mcg/kg/min, 3.538 mls/hr Documented by: VERONICA POTASSIUM CHLORIDE IN WATER (Potassium Cl 10 Meq/100 Ml Camilla) 10 meq in 100 mls @ 100 mls/hr IV Q1H LORENA Stop: 12/02/20 01:44 Last Admin: 12/02/20 01:35 Dose: 100 mls/hr Documented by: Infusion: 12/02/20 01:35 Dose: 100 mls/hr Documented by: Admin: 12/02/20 00:38 Dose: 100 mls/hr Documented by: JSELPH Naloxone HCl (Naloxone 0.4 Mg/Ml Vial) 0.2 mg IV Q2MIN PRN PRN Reason: Opiate Reversal Naloxone HCl (Naloxone 0.4 Mg/Ml Vial) 0.2 mg IV Q2MIN PRN PRN Reason: Opiate Reversal Vital Signs Vital signs: Vital Signs - 8 hr 12/01/20 20:55 12/01/20 21:00 12/01/20 21:05 Pulse Rate 65 54 L 56 L Respiratory Rate 21 20 20 Blood Pressure 148/72 H 93/50 L 93/53 L Pulse Oximetry 100 97 99 12/01/20 21:10 12/01/20 21:15 12/01/20 21:20 Pulse Rate 64 60 62 Respiratory Rate 22 21 20 Blood Pressure 89/57 L 133/71 136/76 Pulse Oximetry 97 98 99 12/01/20 21:25 12/01/20 21:30 12/01/20 21:35 Pulse Rate 68 64 61 Respiratory Rate 28 H 29 H 28 H Blood Pressure 131/65 131/70 129/73 Pulse Oximetry 99 99 98 12/01/20 21:40 12/01/20 21:45 12/01/20 21:50 Pulse Rate 60 61 60 Respiratory Rate 20 21 21 Blood Pressure 134/76 123/75 121/73 Pulse Oximetry 98 98 98 12/01/20 21:55 12/01/20 22:00 12/01/20 22:05 Pulse Rate 61 61 65 Respiratory Rate 21 20 24 Blood Pressure 123/76 120/72 107/66 Pulse Oximetry 96 94 96 MDM - Altered Mental Status <Barry Rodrigues DO - Last Filed: 12/02/20 04:51> Lab Data Result diagrams: 12/01/20 19:27 12/01/20 19:27 Labs: Lab Results 12/01/20 12/01/20 12/01/20 Range/Units 19:27 19:27 19:27 WBC 7.6 (4.5-11.0) X10^3/uL RBC 4.46 L (4.5-5.9) X10^6/uL Hgb 13.4 L (13.5-17.5) g/dL Hct 39.2 L (41-53) % MCV 87.9 (80-100) fL MCH 30.1 (26-34) PG MCHC 34.2 (30-36) % RDW 13.9 (11.6-14.8) % Plt Count 137 L (150-400) X10^3/uL Neut % (Auto) 57.7 (50-75) % Lymph % (Auto) 30.0 (25-40) % [place] % (Auto) 9.3 (3-14) % Eos % (Auto) 2.6 (2-4) % Baso % (Auto) 0.4 (0-2) % Neut # (Auto) 4400 (2194-7823) /uL Lymph # (Auto) 2300 (7847-4201) /uL [place] # (Auto) 700 (0-900) /uL Eos # (Auto) 200 (0-450) /uL Baso # (Auto) 0 (0-100) /uL PT 11.6 (10.1-12.7) SECONDS INR 1.0 (0.9-1.3) APTT 31 (26.4-36.2) SECONDS ABG pH (7.35-7.45) ABG pCO2 (35-45) mmHg ABG pO2 (80-100) mmHg ABG HCO3 (22-26) mmol/L ABG Total CO2 (21-31) mmol/L ABG O2 Saturation (95-100) % ABG Base Excess (-2-2) mmol/L FiO2 Sodium 138 (137-145) mmol/L Potassium 3.2 L (3.4-5.1) mmol/L Chloride 98 (98-107) mmol/L Carbon Dioxide 32 (22-32) mmol/L BUN 19 (9-20) mg/dL Creatinine 0.96 (0.66-1.25) mg/dL Estimated GFR > 60.0 (>60) mL/min BUN/Creatinine Ratio 19.8 (6-22) Glucose 95 (70-100) mg/dL Lactate (0.7-2.1) mmol/L Calcium 8.5 (8.4-10.2) mg/dL Magnesium 1.9 (1.6-2.3) mg/dL Total Bilirubin 0.6 (0.2-1.3) mg/dL AST 24 (17-59) IU/L ALT 22 (<50) IU/L Alkaline Phosphatase 47 (38-126) U/L Total Creatine Kinase 123 (55-170) U/L CK-MB (CK-2) 0.98 (<2.37) ng/mL CK-MB (CK-2) Rel Index 0.8 L (1.5-5.0) % Troponin I < 0.012 (0.01-0.034) ng/mL NT-Pro-B Natriuret Pep 11 (<125) pg/mL Total Protein 6.8 (6.3-8.2) g/dL Albumin 4.1 (3.5-5.0) g/dL Globulin 2.7 (1.7-4.1) g/dL Albumin/Globulin Ratio 1.5 (1.0-2.8) Urine Color Urine Appearance Urine pH (4.5-8.0) Ur Specific [place] (1.000-1.035) Urine Protein (Negative) Urine Glucose (UA) (Negative) g/dL Urine Ketones (NEGATIVE) Urine Occult Blood (Negative) Urine Nitrate (Negative) Urine Bilirubin (NEGATIVE) Urine Urobilinogen (0.2) E.U./dL Ur Leukocyte Esterase (NEGATIVE) Urine RBC (0-5/HPF) Urine WBC (0-5/HPF) Urine Bacteria (None) Ur Culture Indicated? U Opiates 300ng/mL cut (Negative) Ur Oxycodone Screen (Negative) Urine Methadone Screen (Negative) Ur Barbiturates Screen (Negative) U Tricyclic Antidepress (Negative) Ur Phencyclidine Scrn (Negative) Ur Amphetamines Screen (Negative) U Methamphetamines Scrn (Negative) Ur MDMA Scrn (Ecstasy) (Negative) U Benzodiazepines Scrn (Negative) Urine Cocaine Screen (Negative) U Marijuana (THC) Screen (Negative) SARS-CoV-2 (PCR) (Negative) Blood Type Antibody Screen 12/01/20 12/01/20 12/01/20 Range/Units 19:27 19:27 19:35 WBC (4.5-11.0) X10^3/uL RBC (4.5-5.9) X10^6/uL Hgb (13.5-17.5) g/dL Hct (41-53) % MCV (80-100) fL MCH (26-34) PG MCHC (30-36) % RDW (11.6-14.8) % Plt Count (150-400) X10^3/uL Neut % (Auto) (50-75) % Lymph % (Auto) (25-40) % [place] % (Auto) (3-14) % Eos % (Auto) (2-4) % Baso % (Auto) (0-2) % Neut # (Auto) (0273-7742) /uL Lymph # (Auto) (0917-0755) /uL [place] # (Auto) (0-900) /uL Eos # (Auto) (0-450) /uL Baso # (Auto) (0-100) /uL PT (10.1-12.7) SECONDS INR (0.9-1.3) APTT (26.4-36.2) SECONDS ABG pH (7.35-7.45) ABG pCO2 (35-45) mmHg ABG pO2 (80-100) mmHg ABG HCO3 (22-26) mmol/L ABG Total CO2 (21-31) mmol/L ABG O2 Saturation (95-100) % ABG Base Excess (-2-2) mmol/L FiO2 Sodium (137-145) mmol/L Potassium (3.4-5.1) mmol/L Chloride (98-107) mmol/L Carbon Dioxide (22-32) mmol/L BUN (9-20) mg/dL Creatinine (0.66-1.25) mg/dL Estimated GFR (>60) mL/min BUN/Creatinine Ratio (6-22) Glucose (70-100) mg/dL Lactate 1.5 (0.7-2.1) mmol/L Calcium (8.4-10.2) mg/dL Magnesium (1.6-2.3) mg/dL Total Bilirubin (0.2-1.3) mg/dL AST (17-59) IU/L ALT (<50) IU/L Alkaline Phosphatase (38-126) U/L Total Creatine Kinase (55-170) U/L CK-MB (CK-2) (<2.37) ng/mL CK-MB (CK-2) Rel Index (1.5-5.0) % Troponin I (0.01-0.034) ng/mL NT-Pro-B Natriuret Pep (<125) pg/mL Total Protein (6.3-8.2) g/dL Albumin (3.5-5.0) g/dL Globulin (1.7-4.1) g/dL Albumin/Globulin Ratio (1.0-2.8) Urine Color Urine Appearance Urine pH (4.5-8.0) Ur Specific [place] (1.000-1.035) Urine Protein (Negative) Urine Glucose (UA) (Negative) g/dL Urine Ketones (NEGATIVE) Urine Occult Blood (Negative) Urine Nitrate (Negative) Urine Bilirubin (NEGATIVE) Urine Urobilinogen (0.2) E.U./dL Ur Leukocyte Esterase (NEGATIVE) Urine RBC (0-5/HPF) Urine WBC (0-5/HPF) Urine Bacteria (None) Ur Culture Indicated? U Opiates 300ng/mL cut Negative (Negative) Ur Oxycodone Screen Negative (Negative) Urine Methadone Screen Negative (Negative) Ur Barbiturates Screen Negative (Negative) U Tricyclic Antidepress Negative (Negative) Ur Phencyclidine Scrn Negative (Negative) Ur Amphetamines Screen Negative (Negative) U Methamphetamines Scrn Negative (Negative) Ur MDMA Scrn (Ecstasy) Negative (Negative) U Benzodiazepines Scrn Negative (Negative) Urine Cocaine Screen Negative (Negative) U Marijuana (THC) Screen Negative (Negative) SARS-CoV-2 (PCR) (Negative) Blood Type A Positive Antibody Screen Negative 12/01/20 12/01/20 12/01/20 Range/Units 19:35 19:44 19:48 WBC (4.5-11.0) X10^3/uL RBC (4.5-5.9) X10^6/uL Hgb (13.5-17.5) g/dL Hct (41-53) % MCV (80-100) fL MCH (26-34) PG MCHC (30-36) % RDW (11.6-14.8) % Plt Count (150-400) X10^3/uL Neut % (Auto) (50-75) % Lymph % (Auto) (25-40) % [place] % (Auto) (3-14) % Eos % (Auto) (2-4) % Baso % (Auto) (0-2) % Neut # (Auto) (9465-0045) /uL Lymph # (Auto) (7142-6809) /uL [place] # (Auto) (0-900) /uL Eos # (Auto) (0-450) /uL Baso # (Auto) (0-100) /uL PT (10.1-12.7) SECONDS INR (0.9-1.3) APTT (26.4-36.2) SECONDS ABG pH 7.41 (7.35-7.45) ABG pCO2 48.5 H (35-45) mmHg ABG pO2 415 H* (80-100) mmHg ABG HCO3 31 H (22-26) mmol/L ABG Total CO2 32 H (21-31) mmol/L ABG O2 Saturation 100 (95-100) % ABG Base Excess 6.0 H (-2-2) mmol/L FiO2 100 Sodium (137-145) mmol/L Potassium (3.4-5.1) mmol/L Chloride (98-107) mmol/L Carbon Dioxide (22-32) mmol/L BUN (9-20) mg/dL Creatinine (0.66-1.25) mg/dL Estimated GFR (>60) mL/min BUN/Creatinine Ratio (6-22) Glucose (70-100) mg/dL Lactate (0.7-2.1) mmol/L Calcium (8.4-10.2) mg/dL Magnesium (1.6-2.3) mg/dL Total Bilirubin (0.2-1.3) mg/dL AST (17-59) IU/L ALT (<50) IU/L Alkaline Phosphatase (38-126) U/L Total Creatine Kinase (55-170) U/L CK-MB (CK-2) (<2.37) ng/mL CK-MB (CK-2) Rel Index (1.5-5.0) % Troponin I (0.01-0.034) ng/mL NT-Pro-B Natriuret Pep (<125) pg/mL Total Protein (6.3-8.2) g/dL Albumin (3.5-5.0) g/dL Globulin (1.7-4.1) g/dL Albumin/Globulin Ratio (1.0-2.8) Urine Color Yellow Urine Appearance Clear Urine pH 5.5 (4.5-8.0) Ur Specific [place] 1.020 (1.000-1.035) Urine Protein Negative (Negative) Urine Glucose (UA) Negative (Negative) g/dL Urine Ketones Negative (NEGATIVE) Urine Occult Blood Negative (Negative) Urine Nitrate Negative (Negative) Urine Bilirubin Negative (NEGATIVE) Urine Urobilinogen 0.2 (0.2) E.U./dL Ur Leukocyte Esterase Negative (NEGATIVE) Urine RBC None seen (0-5/HPF) Urine WBC None seen (0-5/HPF) Urine Bacteria None seen (None) Ur Culture Indicated? Cult not indicated U Opiates 300ng/mL cut (Negative) Ur Oxycodone Screen (Negative) Urine Methadone Screen (Negative) Ur Barbiturates Screen (Negative) U Tricyclic Antidepress (Negative) Ur Phencyclidine Scrn (Negative) Ur Amphetamines Screen (Negative) U Methamphetamines Scrn (Negative) Ur MDMA Scrn (Ecstasy) (Negative) U Benzodiazepines Scrn (Negative) Urine Cocaine Screen (Negative) U Marijuana (THC) Screen (Negative) SARS-CoV-2 (PCR) Negative (Negative) Blood Type Antibody Screen Point of Care Testing Glucose POC 148 MDM Narrative Medical decision making narrative: Patient with a relatively sudden onset and rapid decline in mental status with no clear etiology at time of admission. La bs and imaging are very reassuring. Vital signs have remained stable. When meds were tapered down he became alert enough to move all 4 extremities on command, answer questions by blinking and squeezing fingers. Patient will require admission the hospital with ongoing evaluation and stabilization of his condition <Cherelle Rueda MD - Last Filed: 12/01/20 21:54> Lab Data Labs: Lab Results 12/01/20 12/01/20 12/01/20 Range/Units 19:27 19:27 19:27 WBC 7.6 (4.5-11.0) X10^3/uL RBC 4.46 L (4.5-5.9) X10^6/uL Hgb 13.4 L (13.5-17.5) g/dL Hct 39.2 L (41-53) % MCV 87.9 (80-100) fL MCH 30.1 (26-34) PG MCHC 34.2 (30-36) % RDW 13.9 (11.6-14.8) % Plt Count 137 L (150-400) X10^3/uL Neut % (Auto) 57.7 (50-75) % Lymph % (Auto) 30.0 (25-40) % [place] % (Auto) 9.3 (3-14) % Eos % (Auto) 2.6 (2-4) % Baso % (Auto) 0.4 (0-2) % Neut # (Auto) 4400 (2600-8714) /uL Lymph # (Auto) 2300 (3426-4971) /uL [place] # (Auto) 700 (0-900) /uL Eos # (Auto) 200 (0-450) /uL Baso # (Auto) 0 (0-100) /uL PT 11.6 (10.1-12.7) SECONDS INR 1.0 (0.9-1.3) APTT 31 (26.4-36.2) SECONDS ABG pH (7.35-7.45) ABG pCO2 (35-45) mmHg ABG pO2 (80-100) mmHg ABG HCO3 (22-26) mmol/L ABG Total CO2 (21-31) mmol/L ABG O2 Saturation (95-100) % ABG Base Excess (-2-2) mmol/L FiO2 Sodium 138 (137-145) mmol/L Potassium 3.2 L (3.4-5.1) mmol/L Chloride 98 (98-107) mmol/L Carbon Dioxide 32 (22-32) mmol/L BUN 19 (9-20) mg/dL Creatinine 0.96 (0.66-1.25) mg/dL Estimated GFR > 60.0 (>60) mL/min BUN/Creatinine Ratio 19.8 (6-22) Glucose 95 (70-100) mg/dL Lactate (0.7-2.1) mmol/L Calcium 8.5 (8.4-10.2) mg/dL Magnesium 1.9 (1.6-2.3) mg/dL Total Bilirubin 0.6 (0.2-1.3) mg/dL AST 24 (17-59) IU/L ALT 22 (<50) IU/L Alkaline Phosphatase 47 (38-126) U/L Total Creatine Kinase 123 (55-170) U/L CK-MB (CK-2) 0.98 (<2.37) ng/mL CK-MB (CK-2) Rel Index 0.8 L (1.5-5.0) % Troponin I < 0.012 (0.01-0.034) ng/mL NT-Pro-B Natriuret Pep 11 (<125) pg/mL Total Protein 6.8 (6.3-8.2) g/dL Albumin 4.1 (3.5-5.0) g/dL Globulin 2.7 (1.7-4.1) g/dL Albumin/Globulin Ratio 1.5 (1.0-2.8) Urine Color Urine Appearance Urine pH (4.5-8.0) Ur Specific [place] (1.000-1.035) Urine Protein (Negative) Urine Glucose (UA) (Negative) g/dL Urine Ketones (NEGATIVE) Urine Occult Blood (Negative) Urine Nitrate (Negative) Urine Bilirubin (NEGATIVE) Urine Urobilinogen (0.2) E.U./dL Ur Leukocyte Esterase (NEGATIVE) Urine RBC (0-5/HPF) Urine WBC (0-5/HPF) Urine Bacteria (None) Ur Culture Indicated? U Opiates 300ng/mL cut (Negative) Ur Oxycodone Screen (Negative) Urine Methadone Screen (Negative) Ur Barbiturates Screen (Negative) U Tricyclic Antidepress (Negative) Ur Phencyclidine Scrn (Negative) Ur Amphetamines Screen (Negative) U Methamphetamines Scrn (Negative) Ur MDMA Scrn (Ecstasy) (Negative) U Benzodiazepines Scrn (Negative) Urine Cocaine Screen (Negative) U Marijuana (THC) Screen (Negative) SARS-CoV-2 (PCR) (Negative) Blood Type Antibody Screen 12/01/20 12/01/20 12/01/20 Range/Units 19:27 19:27 19:35 WBC (4.5-11.0) X10^3/uL RBC (4.5-5.9) X10^6/uL Hgb (13.5-17.5) g/dL Hct (41-53) % MCV (80-100) fL MCH (26-34) PG MCHC (30-36) % RDW (11.6-14.8) % Plt Count (150-400) X10^3/uL Neut % (Auto) (50-75) % Lymph % (Auto) (25-40) % [place] % (Auto) (3-14) % Eos % (Auto) (2-4) % Baso % (Auto) (0-2) % Neut # (Auto) (8836-9375) /uL Lymph # (Auto) (3476-9428) /uL [place] # (Auto) (0-900) /uL Eos # (Auto) (0-450) /uL Baso # (Auto) (0-100) /uL PT (10.1-12.7) SECONDS INR (0.9-1.3) APTT (26.4-36.2) SECONDS ABG pH (7.35-7.45) ABG pCO2 (35-45) mmHg ABG pO2 (80-100) mmHg ABG HCO3 (22-26) mmol/L ABG Total CO2 (21-31) mmol/L ABG O2 Saturation (95-100) % ABG Base Excess (-2-2) mmol/L FiO2 Sodium (137-145) mmol/L Potassium (3.4-5.1) mmol/L Chloride (98-107) mmol/L Carbon Dioxide (22-32) mmol/L BUN (9-20) mg/dL Creatinine (0.66-1.25) mg/dL Estimated GFR (>60) mL/min BUN/Creatinine Ratio (6-22) Glucose (70-100) mg/dL Lactate 1.5 (0.7-2.1) mmol/L Calcium (8.4-10.2) mg/dL Magnesium (1.6-2.3) mg/dL Total Bilirubin (0.2-1.3) mg/dL AST (17-59) IU/L ALT (<50) IU/L Alkaline Phosphatase (38-126) U/L Total Creatine Kinase (55-170) U/L CK-MB (CK-2) (<2.37) ng/mL CK-MB (CK-2) Rel Index (1.5-5.0) % Troponin I (0.01-0.034) ng/mL NT-Pro-B Natriuret Pep (<125) pg/mL Total Protein (6.3-8.2) g/dL Albumin (3.5-5.0) g/dL Globulin (1.7-4.1) g/dL Albumin/Globulin Ratio (1.0-2.8) Urine Color Urine Appearance Urine pH (4.5-8.0) Ur Specific [place] (1.000-1.035) Urine Protein (Negative) Urine Glucose (UA) (Negative) g/dL Urine Ketones (NEGATIVE) Urine Occult Blood (Negative) Urine Nitrate (Negative) Urine Bilirubin (NEGATIVE) Urine Urobilinogen (0.2) E.U./dL Ur Leukocyte Esterase (NEGATIVE) Urine RBC (0-5/HPF) Urine WBC (0-5/HPF) Urine Bacteria (None) Ur Culture Indicated? U Opiates 300ng/mL cut Negative (Negative) Ur Oxycodone Screen Negative (Negative) Urine Methadone Screen Negative (Negative) Ur Barbiturates Screen Negative (Negative) U Tricyclic Antidepress Negative (Negative) Ur Phencyclidine Scrn Negative (Negative) Ur Amphetamines Screen Negative (Negative) U Methamphetamines Scrn Negative (Negative) Ur MDMA Scrn (Ecstasy) Negative (Negative) U Benzodiazepines Scrn Negative (Negative) Urine Cocaine Screen Negative (Negative) U Marijuana (THC) Screen Negative (Negative) SARS-CoV-2 (PCR) (Negative) Blood Type A Positive Antibody Screen Negative 12/01/20 12/01/20 12/01/20 Range/Units 19:35 19:44 19:48 WBC (4.5-11.0) X10^3/uL RBC (4.5-5.9) X10^6/uL Hgb (13.5-17.5) g/dL Hct (41-53) % MCV (80-100) fL MCH (26-34) PG MCHC (30-36) % RDW (11.6-14.8) % Plt Count (150-400) X10^3/uL Neut % (Auto) (50-75) % Lymph % (Auto) (25-40) % [place] % (Auto) (3-14) % Eos % (Auto) (2-4) % Baso % (Auto) (0-2) % Neut # (Auto) (1443-3627) /uL Lymph # (Auto) (0015-8125) /uL [place] # (Auto) (0-900) /uL Eos # (Auto) (0-450) /uL Baso # (Auto) (0-100) /uL PT (10.1-12.7) SECONDS INR (0.9-1.3) APTT (26.4-36.2) SECONDS ABG pH 7.41 (7.35-7.45) ABG pCO2 48.5 H (35-45) mmHg ABG pO2 415 H* (80-100) mmHg ABG HCO3 31 H (22-26) mmol/L ABG Total CO2 32 H (21-31) mmol/L ABG O2 Saturation 100 (95-100) % ABG Base Excess 6.0 H (-2-2) mmol/L FiO2 100 Sodium (137-145) mmol/L Potassium (3.4-5.1) mmol/L Chloride (98-107) mmol/L Carbon Dioxide (22-32) mmol/L BUN (9-20) mg/dL Creatinine (0.66-1.25) mg/dL Estimated GFR (>60) mL/min BUN/Creatinine Ratio (6-22) Glucose (70-100) mg/dL Lactate (0.7-2.1) mmol/L Calcium (8.4-10.2) mg/dL Magnesium (1.6-2.3) mg/dL Total Bilirubin (0.2-1.3) mg/dL AST (17-59) IU/L ALT (<50) IU/L Alkaline Phosphatase (38-126) U/L Total Creatine Kinase (55-170) U/L CK-MB (CK-2) (<2.37) ng/mL CK-MB (CK-2) Rel Index (1.5-5.0) % Troponin I (0.01-0.034) ng/mL NT-Pro-B Natriuret Pep (<125) pg/mL Total Protein (6.3-8.2) g/dL Albumin (3.5-5.0) g/dL Globulin (1.7-4.1) g/dL Albumin/Globulin Ratio (1.0-2.8) Urine Color Yellow Urine Appearance Clear Urine pH 5.5 (4.5-8.0) Ur Specific [place] 1.020 (1.000-1.035) Urine Protein Negative (Negative) Urine Glucose (UA) Negative (Negative) g/dL Urine Ketones Negative (NEGATIVE) Urine Occult Blood Negative (Negative) Urine Nitrate Negative (Negative) Urine Bilirubin Negative (NEGATIVE) Urine Urobilinogen 0.2 (0.2) E.U./dL Ur Leukocyte Esterase Negative (NEGATIVE) Urine RBC None seen (0-5/HPF) Urine WBC None seen (0-5/HPF) Urine Bacteria None seen (None) Ur Culture Indicated? Cult not indicated U Opiates 300ng/mL cut (Negative) Ur Oxycodone Screen (Negative) Urine Methadone Screen (Negative) Ur Barbiturates Screen (Negative) U Tricyclic Antidepress (Negative) Ur Phencyclidine Scrn (Negative) Ur Amphetamines Screen (Negative) U Methamphetamines Scrn (Negative) Ur MDMA Scrn (Ecstasy) (Negative) U Benzodiazepines Scrn (Negative) Urine Cocaine Screen (Negative) U Marijuana (THC) Screen (Negative) SARS-CoV-2 (PCR) Negative (Negative) Blood Type Antibody Screen Point of Care Testing Glucose POC 148 Discharge Plan Departure Patient Disposition: Admitted As Inpatient Clinical Impression: Acute hypoxemic respiratory failure Admit Date/Time: 12/01/20 22:05 Admit Provider: Isabelle Ly
--- NOTE | 2020-12-01 19:27 | DI.RAD.S_ITS ---
PROCEDURE: XR CHEST 1V INDICATIONS: intubated TECHNIQUE: One view of the chest was acquired. COMPARISON: [facility], CR, XR CHEST 1V, 11/18/2019, 7:54. FINDINGS: Surgical changes and devices: ET tube approximately 4 cm above the karley. NG tube in place, projecting at least into the stomach. Thoracic aortic endograft. Lungs and pleura: Lungs are clear. No pleural effusions or pneumothorax. Mediastinum: Mediastinal contours appear normal. Heart size is normal. Bones and chest wall: No suspicious bony lesions. Overlying soft tissues appear unremarkable. IMPRESSION: No gross infiltrates. Dictated by: Edmund Haque M.D. on 12/01/2020 at 19:49 Approved by: Edmund Haque M.D. on 12/01/2020 at 19:51
[2020-12-01 19:37] LABS: Add Manual Diff / Slide Review NO; Basophils Absolute Auto 0 /uL (0-100); Basophils Percent Auto 0.4 % (0-2); Eosinophils Absolute Auto 200 /uL (0-450); Eosinophils Percent Auto 2.6 % (2-4); Hematocrit 39.2 % (41-53); Hemoglobin 13.4 g/dL (13.5-17.5); Lymphocytes Absolute Auto 2300 /uL (1100-4500); Mean Corpuscular HGB Conc 34.2 % (30-36); Mean Corpuscular Hemoglobin 30.1 PG (26-34); Mean Corpuscular Volume 87.9 fL (80-100); Monocytes Absolute Auto 700 /uL (0-900); Monocytes Percent Auto 9.3 % (3-14); Neutrophils Absolute Auto 4400 /uL (1500-7000); Neutrophils Percent Auto 57.7 % (50-75); Platelet Count 137 X10^3/uL (150-400); Red Blood Cell Count 4.46 X10^6/uL (4.5-5.9); Red Cell Distribution Width 13.9 % (11.6-14.8); White Blood Cell Count 7.6 X10^3/uL (4.5-11.0)
[2020-12-01] MEDS: SODIUM CHLORIDE 0.9% 1,000 ML 125 ML IV (19:39)
--- NOTE | 2020-12-01 19:44 | DI.CT.S_ITS ---
PROCEDURE: CT ANGIO CHEST ABDOMEN PELVIS INDICATIONS: dissection protocol TECHNIQUE: Precontrast 5 mm thick sections acquired from the lung apices to the iliac crests. After the administration of intravenous contrast, 2.5 mm thick sections again acquired from the lung apices to the iliac crests. Maximum intensity projection (MIP) oblique sagittal and coronal reformats were then acquired. For radiation dose reduction, the following was used: automated exposure control. COMPARISON: [facility], CT, CT ANGIO CHEST ABDOMEN PELVIS, 11/14/2018, 9:25. FINDINGS: Image quality: Excellent. AORTA and its attachments: Again noted is a thoracic aortic endograft which extends from proximal to the left subclavian, possibly minimally covering the origin of the left common carotid artery, and extending down the descending thoracic aorta. There appears to be a occluded device in the proximal left subclavian artery at its origin. There is classic three-vessel arch anatomy. The brachiocephalic and left common carotid appear patent. The origin of the left subclavian appears to be purposefully occluded. Just below the thoracic aortic endograft, a dissection remains. There is perhaps involvement of the celiac origin by both the true lumen and false lumen. The true lumen is felt to likely be the smaller lumen. The SMA comes off of the true lumen. The right renal artery comes off of the true lumen. The left renal artery comes off of the false lumen. Dissection extends into both common iliac arteries. The suprarenal abdominal aorta is aneurysmal, measuring 4.3 cm above the level of the renal arteries. The infrarenal abdominal aorta measures approximately 4.6 cm in diameter. It previously measured approximately 4.1 cm in diameter. Reference current image 137/5 and image 145/4. There is no rupture of aneurysm. The iliac arteries and femoral arteries are normal caliber. CHEST: Lungs and pleura: No acute airspace opacities. Minimal bibasilar atelectasis. No pleural effusions or pneumothorax. Central and peripheral airways are patent and normal in caliber. Mediastinum: Heart size is normal. No pericardial effusion. Advanced coronary artery calcifications for patient age. No mediastinal or hilar adenopathy by size criteria. Central pulmonary arteries are normal in size. Esophagus is normal in caliber. No hiatal hernias. Bones and chest wall: No axillary adenopathy by size criteria. Thyroid gland is unremarkable as visualized . No suspicious bony lesions. No vertebral body compression fractures. ABDOMEN: Vasculature: Celiac trunk and mesenteric arteries are patent. Celiac artery may be fed by both the true and false lumen. The SMA appears to arise from the true lumen. Renal arteries are also patent. Right renal artery comes off of the true lumen. Left renal artery comes off of the false lumen. Solid organs: Liver is normal in size and enhancement. Gallbladder is unremarkable . Biliary system is non dilated. Pancreas enhances normally. Spleen is normal in size and enhancement. No adrenal nodules. Both kidneys are normal in size and enhancement, without hydronephrosis. Peritoneum and bowel: No free fluid or air. Bowel loops are normal in caliber and wall thickness. Nodes and vessels: No retroperitoneal or mesenteric adenopathy by size criteria. Inferior vena cava is normal in morphology. Miscellaneous: Small fat containing periumbilical hernia. PELVIS: Genitourinary: A Marsh catheter decompresses the bladder. Miscellaneous: No inguinal hernias or adenopathy. No ventral hernias. Bones: No suspicious bony lesions. No vertebral body compression fractures. IMPRESSION: 1. No evidence of aortic rupture. 2. Stable appearance of thoracic aortic endograft. 3. Continued patent dissection inferior to the thoracic and a graft. 4. Interval increase in aneurysmal dilatation of the infrarenal abdominal aorta, from 4.1 cm to 4.6 cm. 5. Advanced coronary artery disease for patient age. Dictated by: Edmund Haque M.D. on 12/01/2020 at 20:41 Approved by: Edmund Haque M.D. on 12/01/2020 at 20:54
[2020-12-01 19:46] LABS: Prothrombin Time 11.6 SECONDS (10.1-12.7)
[2020-12-01 19:48] LABS: PTT Partial Thromboplastin Tim 31 SECONDS (26.4-36.2)
[2020-12-01 19:50] LABS: Alanine Aminotransferase 22 IU/L (<50); Albumin 4.1 g/dL (3.5-5.0); Albumin Globulin Ratio 1.5 (1.0-2.8); Alkaline Phosphatase 47 U/L (38-126); Aspartate Aminotransferase 24 IU/L (17-59); BUN Creatinine Ratio 19.8 (6-22); Bilirubin Total 0.6 mg/dL (0.2-1.3); Blood Urea Nitrogen 19 mg/dL (9-20); Calcium 8.5 mg/dL (8.4-10.2); Carbon Dioxide 32 mmol/L (22-32); Chloride 98 mmol/L (98-107); Creatine Kinase 123 U/L (55-170); Estimated Glomerular Filt Rate > 60.0 mL/min (>60); Globulin 2.7 g/dL (1.7-4.1); Glucose 95 mg/dL (70-100); HEMOLYSIS < 15 (0-50); Magnesium 1.9 mg/dL (1.6-2.3); Potassium 3.2 mmol/L (3.4-5.1); Sodium 138 mmol/L (137-145); Total Protein 6.8 g/dL (6.3-8.2)
[2020-12-01 19:51] LABS: Lactate (Lactic Acid) 1.5 mmol/L (0.7-2.1)
[2020-12-01] MEDS: fentaNYL 100 MCG/2 ML INJ IV ×2 (19:53→23:45)
[2020-12-01] MEDS: propofoL 1,000 MG/100 ML VIAL 3.538 MG IV (19:55)
[2020-12-01 20:02] LABS: NT-proBNP (BNP-Adult 18+) 11 pg/mL (<125); Troponin I < 0.012 ng/mL (0.01-0.034)
[2020-12-01 20:05] LABS: CKMB % Relative Index 0.8 % (1.5-5.0); Creatine Kinase MB 0.98 ng/mL (<2.37)
--- NOTE | 2020-12-01 20:42 | PC.NURSE ---
pt required multiple bolus doses of propofol and an increased in rate to get through the CT scan, Dr Rodrigues aware and received new orders. Pt in soft restraints at this time to prevent him from dislodging ET tube
[2020-12-01 20:43] LABS: COVID19 - ADMIT (NP swab/PCR) Negative (Negative)
[2020-12-01] MEDS: DEXMEDETOMIDINE HCL 400 MCG in SODIUM CHLORIDE 0.9% 100 ML 6.133 ML IV (20:51)
[2020-12-01] MEDS: fentaNYL 100 MCG/2 ML INJ 120 MCG IV (20:53)
--- NOTE | 2020-12-01 21:50 | P.TELICUCN_ITS ---
History of Present Illness Consult details Chief complaint: Code Stroke :: This patient was seen via real time interactive two-way audiovisual telecommunication. Narrative: Mr. Dominguez is a 60 year old male with past medical history of hypertension, obesity, aortic dissection s/p endovascular repair brought in by EMS after witnessed collapse at home. EMS called and patient was brought to the ER. On arrival to ER he was found to have GCS 3 which he was emergently intubated. Per , patient add seafood about 30 minutes prior to feeling sick. He has an allergy to iodinated and shellfish allergy. CT head showed no acute abnormality. CTA head/neck showed no evidence of intraarterial filling defect. CTA abdomen/pelvis showed stable endograft. CXR showed no evidence of airspace disease and ETT above karley. Labs are unremarkable. Patient is sedated with precedex and is waking up and moving all four extremities. Tele-truer pinion and wheel consulted for ICU admission. 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 Social History marital status: number of children: 1 household members: spouse lives independently: Yes caregiver/support person: No housing: house pets and animals: Yes education level: other (Bachelors) occupational status: employed [employer] leisure activities: fishing, reading and other (Golf, Watching TV, Building things in yard) Smoking Status: Never smoker Tobacco: How many years used: 0 quit status: quit date established (Never Started) alcohol intake: current substance use type: does not use Current Medications Current Medications Medications: Home Medications multivitamin (Multiple Vitamins) 1 tab PO QDAY #0 10/30/16 [History Confirmed 08/12/20] chlorthalidone 25 mg tablet 12.5 mg PO DAILY tab 11/20/18 [History Confirmed 08/12/20] potassium chloride 8 mEq tablet,extended release 8 meq PO DAILY tab 04/23/19 [History Confirmed 08/12/20] atorvastatin 20 mg tablet 20 mg PO BEDTIME 11/18/19 [History Confirmed 08/12/20] clopidogrel 75 mg tablet 75 mg PO DAILY #30 tab 11/19/19 [Rx Confirmed 08/12/20] lisinopril 20 mg tablet 10 mg PO BID #180 tab 02/29/20 [Rx Confirmed 08/12/20] metoprolol tartrate 25 mg tablet 12.5 mg PO BID #90 tab 05/30/20 [Rx Confirmed 08/12/20] sodium,potassium,mag sulfates 17.5 gram-3.13 gram-1.6 gram oral soln (Suprep Bowel Prep Kit) See Rx Instructions PO .COMPLEX #354 ml 07/01/20 [Rx Confirmed 08/12/20] Visit Medications (administered) Generic Name Dose Route Start Last Admin Trade Name Freq PRN Reason Stop Dose Admin Sodium Chloride 1,000 mls @ 125 mls/hr 12/01/20 19:30 12/01/20 19:39 Normal Saline 0.9% IV 125 mls/hr CONT LORENA Administration Propofol 1,000 mg in 100 mls @ 3.538 mls/hr 12/01/20 19:30 12/01/20 20:55 Propofol IV Infused TITRATE LORENA Titration Protocol 5 MCG/KG/MIN Dexmedetomidine HCl 400 mcg/ 104 mls @ 6.133 mls/hr 12/01/20 20:38 12/01/20 21:28 Sodium Chloride IV 0.39 mcg/kg/hr TITRATE LORENA 12 mls/hr Titration Protocol 0.2 MCG/KG/HR Exam Vital Signs (past 8 hours): - 12/01/20 19:19 12/01/20 19:25 12/01/20 19:30 Pulse Rate 84 84 81 Respiratory Rate 20 17 18 Blood Pressure 135/78 142/92 H 165/95 H Pulse Oximetry 100 99 97 12/01/20 19:35 12/01/20 19:40 12/01/20 19:45 Pulse Rate 80 87 80 Respiratory Rate 20 20 20 Blood Pressure 158/87 H 156/91 H 163/93 H Pulse Oximetry 98 98 98 12/01/20 19:51 12/01/20 19:56 12/01/20 20:00 Pulse Rate 81 73 70 Respiratory Rate 21 20 20 Blood Pressure 174/89 H 153/80 H 144/81 H Pulse Oximetry 97 99 98 12/01/20 20:05 12/01/20 20:15 12/01/20 20:20 Pulse Rate 71 71 67 Respiratory Rate 20 20 29 H Blood Pressure 149/84 H 141/81 H 141/85 H Pulse Oximetry 96 94 12/01/20 20:25 12/01/20 20:30 12/01/20 20:35 Pulse Rate 62 62 64 Respiratory Rate 20 21 21 Blood Pressure 118/69 124/75 102/55 L Pulse Oximetry 95 94 12/01/20 20:36 12/01/20 20:40 12/01/20 20:45 Pulse Rate 67 61 62 Respiratory Rate 23 23 26 H Blood Pressure 109/67 136/69 133/73 Pulse Oximetry 100 100 12/01/20 20:55 12/01/20 21:00 12/01/20 21:05 Pulse Rate 65 54 L 56 L Respiratory Rate 21 20 20 Blood Pressure 148/72 H 93/50 L 93/53 L Pulse Oximetry 100 97 99 12/01/20 21:10 12/01/20 21:15 12/01/20 21:20 Pulse Rate 64 60 62 Respiratory Rate 22 21 20 Blood Pressure 89/57 L 133/71 136/76 Pulse Oximetry 97 98 99 12/01/20 21:25 12/01/20 21:30 12/01/20 21:35 Pulse Rate 68 64 61 Respiratory Rate 28 H 29 H 28 H Blood Pressure 131/65 131/70 129/73 Pulse Oximetry 99 99 98 12/01/20 21:40 Pulse Rate 60 Respiratory Rate 20 Blood Pressure 134/76 Pulse Oximetry 98 Narrative Exam Narrative: Intubated. Unable to perform any additional exam. Objective Labs Result Diagrams: 12/01/20 19:27 12/01/20 19:27 Labs: Laboratory Results - last 24 hr 12/01/20 12/01/20 12/01/20 19:27 19:27 19:27 WBC 7.6 RBC 4.46 L Hgb 13.4 L Hct 39.2 L MCV 87.9 MCH 30.1 MCHC 34.2 RDW 13.9 Plt Count 137 L Neut % (Auto) 57.7 Lymph % (Auto) 30.0 [place] % (Auto) 9.3 Eos % (Auto) 2.6 Baso % (Auto) 0.4 Neut # (Auto) 4400 Lymph # (Auto) 2300 [place] # (Auto) 700 Eos # (Auto) 200 Baso # (Auto) 0 PT 11.6 INR 1.0 APTT 31 Sodium 138 Potassium 3.2 L Chloride 98 Carbon Dioxide 32 BUN 19 Creatinine 0.96 Estimated GFR > 60.0 BUN/Creatinine Ratio 19.8 Glucose 95 Lactate Calcium 8.5 Magnesium 1.9 Total Bilirubin 0.6 AST 24 ALT 22 Alkaline Phosphatase 47 Total Creatine Kinase 123 CK-MB (CK-2) 0.98 CK-MB (CK-2) Rel Index 0.8 L Troponin I < 0.012 NT-Pro-B Natriuret Pep 11 Total Protein 6.8 Albumin 4.1 Globulin 2.7 Albumin/Globulin Ratio 1.5 SARS-CoV-2 (PCR) Blood Type Antibody Screen 12/01/20 12/01/20 12/01/20 19:27 19:27 19:44 WBC RBC Hgb Hct MCV MCH MCHC RDW Plt Count Neut % (Auto) Lymph % (Auto) [place] % (Auto) Eos % (Auto) Baso % (Auto) Neut # (Auto) Lymph # (Auto) [place] # (Auto) Eos # (Auto) Baso # (Auto) PT INR APTT Sodium Potassium Chloride Carbon Dioxide BUN Creatinine Estimated GFR BUN/Creatinine Ratio Glucose Lactate 1.5 Calcium Magnesium Total Bilirubin AST ALT Alkaline Phosphatase Total Creatine Kinase CK-MB (CK-2) CK-MB (CK-2) Rel Index Troponin I NT-Pro-B Natriuret Pep Total Protein Albumin Globulin Albumin/Globulin Ratio SARS-CoV-2 (PCR) Negative Blood Type A Positive Antibody Screen Negative Assessment & Plan Assessment and plan (1) Acute encephalopathy: Status: Acute Assessment & Plan narrative: Neuro: # Acute encephalopathy - Unknown etiology - Imagings are unremarkable - Currently waking up and following commands while on precedex infusion - Differentials include seizure vs arrhythmias vs structural pathology vs anaphylaxis - Cont precedex infusion to maintain RASS goal -1 to +1 - Daily SAT - Check Utox - If recur then will need MRI brain RESP: # Acute respiratory failure - Intubated for severe acute encephalopathy with inability to protect airway - CXR confirmed ETT placement with no dense consolidation - Plan for SBT in the morning - HOB elevation - Aspiration precaution - RT to titrate PEEP and FiO2 to maintain goal SpO2 > 88% - Early mobility CVS: # Hyperlipidemia - Resume lipitor # HTN - Resume home meds if SBP > 140 # Concern for cardiac arrhythmias - Check TTE - Trend troponin X 3 - High lytes goal - Normal BUN and creatinine - Monitor UOP ENDO: - Goal BS < 180 Time Spent With Patient Critical Care time: I spent a total of [] minutes of critical care time on this patient's care today; this time is exclusive of procedural time.
[2020-12-01 23:13] LABS: Appearance Urine UA CLEAR; Bilirubin Urine UA NEGATIVE (NEGATIVE); Color Urine UA YELLOW; Glucose Urine UA NEGATIVE (Negative); Ketones Urine UA NEGATIVE (NEGATIVE); Leukocyte Esterase Urine UA NEGATIVE (NEGATIVE); Nitrite Urine UA NEGATIVE (Negative); Occult Blood Urine UA NEGATIVE (Negative); Protein Urine UA NEGATIVE (Negative); UR Morphine/Opiate cutoff 300 Negative (Negative); Ur Creatinine Normal (Normal); Ur Specific Gravity Normal (Normal); Urine Amphetamines Negative (Negative); Urine Barbiturates Negative (Negative); Urine Benzodiazepines Negative (Negative); Urine Cocaine Negative (Negative); Urine MDMA Negative (Negative); Urine Methadone Negative (Negative); Urine Methamphetamines Negative (Negative); Urine Oxycodone Negative (Negative); Urine Phencyclidine Negative (Negative); Urine Tetrahydrocannabinol Negative (Negative); Urine Tricyclic Antidepressant Negative (Negative); Urine pH Normal (Normal); Urobilinogen Urine UA 0.2 E.U./dL (0.2); pH Urine UA 5.5 (4.5-8.0)
--- NOTE | 2020-12-01 23:19 | P.HP_ITS ---
History of Present Illness History of Present Illness Date Patient Seen: 12/01/20 Time Patient Seen: 22:24 Chief complaint: Code Stroke Narrative: ?Larry Dominguez is a 60-year-old male nonsmoker with history of hypertension, mixed hyperlipidemia, TIA and prior aortic dissection repair with endovascular approach 2017 presents by EMS in critical condition.? He had been in his normal state of health until just after 6:00 p.m. when he approached his and said I do not feel right, sooner after he collapsed. When they arrived he had GCS of 3, snoring respirations.? He was promptly intubated with an 8 0 endotracheal tube, sedation included ketamine 250 mg times to, rocuronium administered at 6:55 p.m. the patient's further endorses that at no time did the patient receive cardiac resuscitation in the field or in the ED. the patient is able to shake his head in response to questions and denied any irregular heart issues, chest pain, or shortness of breath. He was able to convey that he had a great deal of discomfort from the tubing in his airway. [facility] ICU wood lather Dr. Rueda was consulted by phone conference with ED Dr. Emery, and also video consult during admit to the ICU. After interviewing patient's at the bedside who is an excellent historian, she reports that her spouse had had increasing allergic reactions to the IV contrast when having multiple imaging. She reports that tonight he had had a large seafood platter and complained of swelling of his tongue, numbness and tingling to his face, and his face became quite red in presentation just prior to his collapse. She had perceived that the patient was slurring his words but now believes it was related to the swelling of his tongue. The history in presentation likely repres ents an anaphylactic reaction to seafood and or IV contrast, excluding all other causes at this time based on clinical work-up and presentation. Upon admit vital signs are stable, labs are unremarkable, troponin, BNP, urine, tox screen and COVID are all WNL. Chest/Abd/Pelvis CTA demonstrated no evidence of aortic rupture, with stable appearance of thoracic aortic endograft, with a noted interval increase in aneurysmal dilatation of the infrarenal abdominal aorta, from 4.1 cm to 4.6 cm. Head neck CTA was negative for stroke hemorrhage or masses. Chest x-ray was negative for gross infiltrates. Patient admitted for acute respiratory failure with hypoxia and acute encephalopathy due to susp ected seafood anaphylaxis IgE mediated response. 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 Social History: household members spouse lives independently Yes caregiver/support person No Tobacco & Substance use: Smoking Status Never smoker alcohol intake current alcohol intake frequency holiday/special occasion Substance Use Type does not use Meds Home Medications and Allergies Home Medications Medication Instructions Recorded Confirmed Type multivitamin (Multiple Vitamins) 1 tab PO QDAY #0 10/30/16 08/12/20 History chlorthalidone 25 mg tablet 12.5 mg PO DAILY tab 11/20/18 08/12/20 History potassium chloride 8 mEq 8 meq PO DAILY tab 04/23/19 08/12/20 History tablet,extended release atorvastatin 20 mg tablet 20 mg PO BEDTIME 11/18/19 08/12/20 History clopidogrel 75 mg tablet 75 mg PO DAILY #30 tab 11/19/19 08/12/20 Rx lisinopril 20 mg tablet 10 mg PO BID #180 tab 02/29/20 08/12/20 Rx metoprolol tartrate 25 mg tablet 12.5 mg PO BID #90 tab 05/30/20 08/12/20 Rx sodium,potassium,mag sulfates 17.5 See Rx Instructions PO .COMPLEX 07/01/20 08/12/20 Rx gram-3.13 gram-1.6 gram oral soln #354 ml (Suprep Bowel Prep Kit) Allergies Allergy/AdvReac Type Severity Reaction Status Date / Time Iodinated Contrast Media AdvReac eye Verified 08/12/20 07:10 swelling, nausea, Review of Systems Review of Systems Narrative: Unable to do review of systems or HPI as patient is intubated. though patient was able to shake his head -denying CP, abd pain, or generalized discomfort. He does find the tubing uncomfortable in his throat. Exam Vital Signs (past 8 hours): - 12/01/20 19:19 12/01/20 19:25 12/01/20 19:30 Pulse Rate 84 84 81 Respiratory Rate 20 17 18 Blood Pressure 135/78 142/92 H 165/95 H Pulse Oximetry 100 99 97 12/01/20 19:35 12/01/20 19:40 12/01/20 19:45 Pulse Rate 80 87 80 Respiratory Rate 20 20 20 Blood Pressure 158/87 H 156/91 H 163/93 H Pulse Oximetry 98 98 98 12/01/20 19:51 12/01/20 19:56 12/01/20 20:00 Pulse Rate 81 73 70 Respiratory Rate 21 20 20 Blood Pressure 174/89 H 153/80 H 144/81 H Pulse Oximetry 97 99 98 12/01/20 20:05 12/01/20 20:15 12/01/20 20:20 Pulse Rate 71 71 67 Respiratory Rate 20 20 29 H Blood Pressure 149/84 H 141/81 H 141/85 H Pulse Oximetry 96 94 12/01/20 20:25 12/01/20 20:30 12/01/20 20:35 Pulse Rate 62 62 64 Respiratory Rate 20 21 21 Blood Pressure 118/69 124/75 102/55 L Pulse Oximetry 95 94 12/01/20 20:36 12/01/20 20:40 12/01/20 20:45 Pulse Rate 67 61 62 Respiratory Rate 23 23 26 H Blood Pressure 109/67 136/69 133/73 Pulse Oximetry 100 100 12/01/20 20:55 12/01/20 21:00 12/01/20 21:05 Pulse Rate 65 54 L 56 L Respiratory Rate 21 20 20 Blood Pressure 148/72 H 93/50 L 93/53 L Pulse Oximetry 100 97 99 12/01/20 21:10 12/01/20 21:15 12/01/20 21:20 Pulse Rate 64 60 62 Respiratory Rate 22 21 20 Blood Pressure 89/57 L 133/71 136/76 Pulse Oximetry 97 98 99 12/01/20 21:25 12/01/20 21:30 12/01/20 21:35 Pulse Rate 68 64 61 Respiratory Rate 28 H 29 H 28 H Blood Pressure 131/65 131/70 129/73 Pulse Oximetry 99 99 98 12/01/20 21:40 12/01/20 21:45 12/01/20 21:50 Pulse Rate 60 61 60 Respiratory Rate 20 21 21 Blood Pressure 134/76 123/75 121/73 Pulse Oximetry 98 98 98 12/01/20 21:55 12/01/20 22:00 12/01/20 22:05 Pulse Rate 61 61 65 Respiratory Rate 21 20 24 Blood Pressure 123/76 120/72 107/66 Pulse Oximetry 96 94 96 12/01/20 22:10 12/01/20 22:15 12/01/20 22:20 Pulse Rate 61 61 61 Respiratory Rate 21 20 20 Blood Pressure 107/69 108/69 114/70 Pulse Oximetry 96 95 91 12/01/20 22:25 12/01/20 22:30 12/01/20 22:35 Pulse Rate 60 60 60 Respiratory Rate 20 19 21 Blood Pressure 104/64 96/58 L 96/58 L Pulse Oximetry 92 90 L 94 12/01/20 22:40 12/01/20 22:45 12/01/20 22:50 Pulse Rate 61 60 61 Respiratory Rate 20 20 20 Blood Pressure 92/57 L 91/53 L 93/57 L Pulse Oximetry 96 99 97 12/01/20 22:55 12/01/20 23:00 12/01/20 23:05 Pulse Rate 60 58 L 59 L Respiratory Rate 18 20 20 Blood Pressure 102/59 L 98/61 110/63 Pulse Oximetry 97 91 91 12/01/20 23:10 12/01/20 23:15 Pulse Rate 58 L 59 L Respiratory Rate 20 20 Blood Pressure 118/73 119/62 Pulse Oximetry 92 92 Narrative Exam Narrative: General: Patient is a well-developed, well-nourished male resting comfortably intubated,in no distress at this time. HEENT: Normocephalic, atraumatic, Patient is able to open his eye for short periods of time. Patient is intubated with NG tube present and draining. Neck is supple and symmetric, trachea is midline, no adenopathy, no thyroid enlargement, nontender, no masses palpated. Negative for JVD Chest: Normal AP diameter and contour without kyphoscoliosis, no nasal flaring, retractions, or tachypneic labored breathing. Lungs: Auscultation of all lung drew are clear without adventitious sounds, wheezes, rhonchi, or rales. Cardio: S1 & S2 with regular rate and rhythm without murmur, rubs, or gallops, no carotid bruit, no cardiac pulsations present. Abdomen: Soft nontender, negative for organomegaly, or masses. Bowel sounds are present in all 4 quadrants without guarding or rebound, no CVA tenderness. Marsh is in place and draining unobstructed. Musculoskeletal: Muscle strength and tone are equal within normal limits, no deformity, crepitus, effusions, cyanosis, clubbing or edema present. Full range of motion intact radial and pedal pulses are normal. Patient able to move all 4 extremities. Skin: Warm dry and intact without rashes, ulcerations or petechiae. Neuro: Alert and appears orientated, strength is +5/5 in all extremities, sensation to touch intact. Psych: Patient has a well-kept appearance, patient is able to follow commands, and able to non verbally communicate his level of discomfort and attempts to write in his wifes hand- some of his responses. Objective Labs Result Diagrams: 12/01/20 19:27 12/01/20 19:27 Labs: Laboratory Results - last 24 hr 12/01/20 12/01/20 12/01/20 19:27 19:27 19:27 WBC 7.6 RBC 4.46 L Hgb 13.4 L Hct 39.2 L MCV 87.9 MCH 30.1 MCHC 34.2 RDW 13.9 Plt Count 137 L Neut % (Auto) 57.7 Lymph % (Auto) 30.0 Loving % (Auto) 9.3 Eos % (Auto) 2.6 Baso % (Auto) 0.4 Neut # (Auto) 4400 Lymph # (Auto) 2300 Loving # (Auto) 700 Eos # (Auto) 200 Baso # (Auto) 0 PT 11.6 INR 1.0 APTT 31 Sodium 138 Potassium 3.2 L Chloride 98 Carbon Dioxide 32 BUN 19 Creatinine 0.96 Estimated GFR > 60.0 BUN/Creatinine Ratio 19.8 Glucose 95 Lactate Calcium 8.5 Magnesium 1.9 Total Bilirubin 0.6 AST 24 ALT 22 Alkaline Phosphatase 47 Total Creatine Kinase 123 CK-MB (CK-2) 0.98 CK-MB (CK-2) Rel Index 0.8 L Troponin I < 0.012 NT-Pro-B Natriuret Pep 11 Total Protein 6.8 Albumin 4.1 Globulin 2.7 Albumin/Globulin Ratio 1.5 Urine Color Urine Appearance Urine pH Ur Specific Henderson Urine Protein Urine Glucose (UA) Urine Ketones Urine Occult Blood Urine Nitrate Urine Bilirubin Urine Urobilinogen Ur Leukocyte Esterase U Opiates 300ng/mL cut Ur Oxycodone Screen Urine Methadone Screen Ur Barbiturates Screen U Tricyclic Antidepress Ur Phencyclidine Scrn Ur Amphetamines Screen U Methamphetamines Scrn Ur MDMA Scrn (Ecstasy) U Benzodiazepines Scrn Urine Cocaine Screen U Marijuana (THC) Screen SARS-CoV-2 (PCR) Blood Type Antibody Screen 12/01/20 12/01/20 12/01/20 19:27 19:27 19:35 WBC RBC Hgb Hct MCV MCH MCHC RDW Plt Count Neut % (Auto) Lymph % (Auto) Loving % (Auto) Eos % (Auto) Baso % (Auto) Neut # (Auto) Lymph # (Auto) Loving # (Auto) Eos # (Auto) Baso # (Auto) PT INR APTT Sodium Potassium Chloride Carbon Dioxide BUN Creatinine Estimated GFR BUN/Creatinine Ratio Glucose Lactate 1.5 Calcium Magnesium Total Bilirubin AST ALT Alkaline Phosphatase Total Creatine Kinase CK-MB (CK-2) CK-MB (CK-2) Rel Index Troponin I NT-Pro-B Natriuret Pep Total Protein Albumin Globulin Albumin/Globulin Ratio Urine Color Urine Appearance Urine pH Ur Specific Henderson Urine Protein Urine Glucose (UA) Urine Ketones Urine Occult Blood Urine Nitrate Urine Bilirubin Urine Urobilinogen Ur Leukocyte Esterase U Opiates 300ng/mL cut Negative Ur Oxycodone Screen Negative Urine Methadone Screen Negative Ur Barbiturates Screen Negative U Tricyclic Antidepress Negative Ur Phencyclidine Scrn Negative Ur Amphetamines Screen Negative U Methamphetamines Scrn Negative Ur MDMA Scrn (Ecstasy) Negative U Benzodiazepines Scrn Negative Urine Cocaine Screen Negative U Marijuana (THC) Screen Negative SARS-CoV-2 (PCR) Blood Type A Positive Antibody Screen Negative 12/01/20 12/01/20 19:35 19:44 WBC RBC Hgb Hct MCV MCH MCHC RDW Plt Count Neut % (Auto) Lymph % (Auto) Loving % (Auto) Eos % (Auto) Baso % (Auto) Neut # (Auto) Lymph # (Auto) Loving # (Auto) Eos # (Auto) Baso # (Auto) PT INR APTT Sodium Potassium Chloride Carbon Dioxide BUN Creatinine Estimated GFR BUN/Creatinine Ratio Glucose Lactate Calcium Magnesium Total Bilirubin AST ALT Alkaline Phosphatase Total Creatine Kinase CK-MB (CK-2) CK-MB (CK-2) Rel Index Troponin I NT-Pro-B Natriuret Pep Total Protein Albumin Globulin Albumin/Globulin Ratio Urine Color Yellow Urine Appearance Clear Urine pH 5.5 Ur Specific Henderson 1.020 Urine Protein Negative Urine Glucose (UA) Negative Urine Ketones Negative Urine Occult Blood Negative Urine Nitrate Negative Urine Bilirubin Negative Urine Urobilinogen 0.2 Ur Leukocyte Esterase Negative U Opiates 300ng/mL cut Ur Oxycodone Screen Urine Methadone Screen Ur Barbiturates Screen U Tricyclic Antidepress Ur Phencyclidine Scrn Ur Amphetamines Screen U Methamphetamines Scrn Ur MDMA Scrn (Ecstasy) U Benzodiazepines Scrn Urine Cocaine Screen U Marijuana (THC) Screen SARS-CoV-2 (PCR) Negative Blood Type Antibody Screen Assessment & Plan Assessment & Plan narrative: ?Larry Dominguez is a 60-year-old male nonsmoker with history of hypertension, mixed hyperlipidemia, TIA and prior aortic dissection repair with endovascular approach 2017 presents by EMS intubated. upon admit patient is responding to commands and moving all 4 extremities. Patient is admitted for acute respiratory failure with hypoxia and acute encephalopathy 1. Acute respiratory failure with hypoxia and acute encephalopathy, acute, present on admission -Suspect anaphylaxis shock secondary to seafood exposure (suspected immunoglobulin E (igE)-mediated reaction) recommend specific IgE antibody testing. -patient currently intubated Vent settings: 30%, tidal volume 400, rate 30, peep of 5. -Precedex 0.4 and Diluadid 1mg IV Q4Hrs for sedation -antiemetics Zofran and Reglan as needed -respiratory consult, tele ICU consult -plan to keep patient intubated overnight evaluate in the morning to determine stability and consideration for extubation. Patient demonstrates no signs of GISELA, infectious process, or cardiac arrhythmia. -Marsh in place, monitor renal function & urinary output. -Continue fluid hydration LR@100cc/hr -ABG & CXR, CBC, CMP Mag, Sputum clx -patient's primary is Dr. Serrano, because the PCPs do not have ventilator privileges they requested that the patient be [facility]. Dr. Barbosa will be on tomorrow and may take over care of patient. 2. Thrombocytopenia, acute, present on admission -monitor CBC, initial PLT 137, HGB 13.4, HCT 39.2 -transfuse platelets for a goal <50 3. Hypertension essential, acute on chronic, present on admission -initial presenting 165/95, patient's pressures upon admit are slightly soft likely due to sedation. 92/53 -monitor patient for sepsis or septic shock -holding patient's chlorthalidone, lisinopril, metoprolol 4. Hyperlipidemia, mixed, chronic, present on admission -holding patient's Lipitor 5. Hypokalemia, acute on chronic, present on admission -Initial potassium 3.2, 20 mEq IV rider ordered -holding patient's oral potassium -continue to monitor electrolytes 6. History of thoracic aortic aneurysm repair 2017, chronic, present on admission -Holding patient's Plavix 7. Sleep apnea, chronic, present on admission -monitor patient's respiratory function, currently intubated Code status:Full Surrogate decision maker: Spouse-Manjula COVID PCR:Negative COVID vaccination: Unknown DVT/VTE prophylaxis:SCD's- if patients remains intubated consider Lovenox 40mg SQ Disposition: Patient admitted to ICU on a ventilator, estimated length of stay greater than 2 midnights. I have utilized all available immediate resources to obtain, update, or review the patient's current medications. I confirmed that the patient's advanced care plan is present, Code status is documented and/or surrogate decision maker is listed in the patient's medical record. Time Spent With Patient Critical Care time: I spent a total of [] minutes of critical care time on this patient's care today; this time is exclusive of procedural time.
[2020-12-01 23:26] LABS: Bacteria Urine None Seen; Culture Indicated Urine Cult Not Indicated; RBC Urine None Seen (0-5/HPF); WBC Urine None Seen (0-5/HPF)
[2020-12-02] VITALS (30 sets, daily range): BP systolic 88–132; BP diastolic 50–66; PULSE 52–103; RESP 0–20; TEMP 36.1–37.6; O2SAT 94–98; BMI 36.1
[2020-12-02] MEDS: LACTATED RINGERS 1,000 ML 100 ML IV ×2 (00:35→10:16)
[2020-12-02] MEDS: POTASSIUM CHLORIDE IN WATER 10 MEQ/100 ML PIGGYBACK 100 MEQ IV ×2 (00:38→01:35)
[2020-12-02] MEDS: HYDROMORPHONE 1 MG INJ IV ×4 (00:42→16:15)
--- NOTE | 2020-12-02 00:58 | PC.NURSE ---
1907, Pt arrived, went to CT, received report from EMS, Pt unresponsive 1912 BGC 167 1917, CT completed, pt to trauma room 1 1920 connected to vent 1923 18 g IV R hand and labs, 18 g IV L hand 1928 OG placed 1932 26fr naik placed, 1934 Urine sent to lab 1936 chest x ray in room, ET tube adjusted to 22 at the teeth 1950 BG done 1954 Proprofol started, pt moving, responding to stimuli, [address] for further imaging 2034 Return to room, Propofol not effective, Dr Rodrigeus notified. Further medication info in MAR
[2020-12-02 03:33] LABS: HCO3 ABG 31 mmol/L (22-26); Oxygen Saturation ABG 100 % (95-100); PCO2 ABG 48.5 mmHg (35-45); PO2 ABG 415 mmHg (80-100); TCO2 ABG 32 mmol/L (21-31); pH ABG 7.41 (7.35-7.45)
[2020-12-02 03:34] LABS: Fractionated Inspired Oxygen 100
[2020-12-02] MEDS: DEXMEDETOMIDINE HCL 400 MCG in SODIUM CHLORIDE 0.9% 100 ML 13.798 ML IV (04:06)
[2020-12-02 05:32] LABS: Add Manual Diff / Slide Review NO; Basophils Absolute Auto 0 /uL (0-100); Basophils Percent Auto 0.1 % (0-2); Eosinophils Absolute Auto 0 /uL (0-450); Eosinophils Percent Auto 0.1 % (2-4); Hematocrit 37.8 % (41-53); Hemoglobin 12.8 g/dL (13.5-17.5); Lymphocytes Absolute Auto 900 /uL (1100-4500); Mean Corpuscular HGB Conc 33.8 % (30-36); Mean Corpuscular Hemoglobin 29.7 PG (26-34); Mean Corpuscular Volume 87.7 fL (80-100); Monocytes Absolute Auto 400 /uL (0-900); Monocytes Percent Auto 4.2 % (3-14); Neutrophils Absolute Auto 7800 /uL (1500-7000); Neutrophils Percent Auto 85.6 % (50-75); Platelet Count 124 X10^3/uL (150-400); Red Blood Cell Count 4.31 X10^6/uL (4.5-5.9); Red Cell Distribution Width 13.8 % (11.6-14.8); White Blood Cell Count 9.1 X10^3/uL (4.5-11.0)
[2020-12-02 05:37] LABS: Alanine Aminotransferase 23 IU/L (<50); Albumin 4.1 g/dL (3.5-5.0); Albumin Globulin Ratio 1.6 (1.0-2.8); Alkaline Phosphatase 46 U/L (38-126); Aspartate Aminotransferase 24 IU/L (17-59); BUN Creatinine Ratio 20.6 (6-22); Bilirubin Total 0.8 mg/dL (0.2-1.3); Blood Urea Nitrogen 20 mg/dL (9-20); Calcium 8.9 mg/dL (8.4-10.2); Carbon Dioxide 26 mmol/L (22-32); Chloride 101 mmol/L (98-107); Estimated Glomerular Filt Rate > 60.0 mL/min (>60); Globulin 2.6 g/dL (1.7-4.1); Glucose 150 mg/dL (70-100); HEMOLYSIS < 15 (0-50); Magnesium 1.8 mg/dL (1.6-2.3); Potassium 3.6 mmol/L (3.4-5.1); Sodium 136 mmol/L (137-145); Total Protein 6.7 g/dL (6.3-8.2)
[2020-12-02 05:44] LABS: HCO3 ABG 24 mmol/L (22-26); Oxygen Saturation ABG 96 % (95-100); PCO2 ABG 30.8 mmHg (35-45); PO2 ABG 72 mmHg (80-100); TCO2 ABG 25 mmol/L (21-31); pH ABG 7.51 (7.35-7.45)
[2020-12-02 05:45] LABS: Fractionated Inspired Oxygen 30
--- NOTE | 2020-12-02 07:03 | RT ---
Patient recieved from field with 8/0 ET tube secured at 24 at teeth, Moved out to 22 per MD order. Inital settings of Vt 480, rate of 20, PEEP of 5 and FIO2 of 100%. Quickly weaned down to 40% after inital ABG result with PO2 of 401. Patient transported to CT x two over the course of the next couple of hours. Then transported up to CCU and placed on SERVo and FIO2 weaned down to 30% at that time. Scant clear secretions from ET tube throughout shift. BS clear. Patient interactive and appropriate once intubation meds wore off. Rate decreased to 16 after am ABG results ofwith PH of 7.505, and PCO2 of 30.8, PO2 72. RN notified of changes and ABG results.
[2020-12-02] MEDS: ENOXAPARIN 40 MG/0.4 ML SYRINGE SUBCUT (10:18)
--- NOTE | 2020-12-02 11:01 | P.TELICUPN_ITS ---
Subjective Subjective :: This patient was seen via real time interactive two-way audiovisual telecommunication. 60 y.o. male who was admitted with syncope and acute neuromuscular respiratory failure; he was intubated in the field. Etiology was unknown at the time but further history indicates that the probable cause is anaphylaxis--symptoms started 20 minutes after he ate some seafood and he has a known iodine allergy. Workup has been (-) for an ACS with (-) troponins; chest/abd/pelvic CTA (-) for a PE but did show a thoracic endograft with old and a stable dissection. Head/neck CT and CTA (-). Current Medications Current Medications Medications: Home Medications multivitamin (Multiple Vitamins) 1 tab PO QDAY #0 10/30/16 [History Confirmed 08/12/20] chlorthalidone 25 mg tablet 12.5 mg PO DAILY tab 11/20/18 [History Confirmed 12/02/20] potassium chloride 8 mEq tablet,extended release 8 meq PO DAILY tab 04/23/19 [History Confirmed 12/02/20] atorvastatin 20 mg tablet 20 mg PO BEDTIME 11/18/19 [History Confirmed 12/02/20] clopidogrel 75 mg tablet 75 mg PO DAILY #30 tab 11/19/19 [Rx Confirmed 08/12/20] lisinopril 20 mg tablet 10 mg PO BID #180 tab 02/29/20 [Rx Confirmed 12/02/20] metoprolol tartrate 25 mg tablet 12.5 mg PO BID #90 tab 05/30/20 [Rx Confirmed 12/02/20] sodium,potassium,mag sulfates 17.5 gram-3.13 gram-1.6 gram oral soln (Suprep Bowel Prep Kit) See Rx Instructions PO .COMPLEX #354 ml 07/01/20 [Rx Confirmed 08/12/20] Visit Medications (administered) Generic Name Dose Route Start Last Admin Trade Name Freq PRN Reason Stop Dose Admin Enoxaparin Sodium 40 mg 12/02/20 09:00 12/02/20 10:18 Enoxaparin 40 Mg/0.4 Ml Syringe SUBCUT 40 mg DAILY LORENA Administration Hydromorphone HCl 1 mg 12/02/20 00:31 12/02/20 00:42 Hydromorphone 1 Mg Inj IV 1 mg Q4HR PRN Administration Pain, Severe (7-10) Sodium Chloride 1,000 mls @ 125 mls/hr 12/01/20 19:30 12/02/20 07:51 Normal Saline 0.9% IV Infused CONT LORENA Infusion Dexmedetomidine HCl 400 mcg/ 104 mls @ 6.133 mls/hr 12/01/20 20:38 12/02/20 08:50 Sodium Chloride IV 0.45 mcg/kg/hr TITRATE LORENA 13.798 mls/hr Titration Protocol 0.2 MCG/KG/HR Lactated Ringer's 1,000 mls @ 100 mls/hr 12/01/20 22:00 12/02/20 10:16 Lactated Ringers IV 100 mls/hr CONT LORENA Administration Objective Ventilator Parameters: Ventilator Settings FiO2 30 RT Vent Frequency 16 Ventilator Tidal Volume 480 Exhaled Positive End Expiratory 5 Pressure Inspiratory Phase Time 0.8 I:E Ratio 1:3.7 Patient Position HOB >= 30 degrees Labs Result Diagrams: 12/02/20 04:45 12/02/20 04:45 Labs: Laboratory Results - last 24 hr 12/01/20 12/01/20 12/01/20 19:27 19:27 19:27 WBC 7.6 RBC 4.46 L Hgb 13.4 L Hct 39.2 L MCV 87.9 MCH 30.1 MCHC 34.2 RDW 13.9 Plt Count 137 L Neut % (Auto) 57.7 Lymph % (Auto) 30.0 Sunflower % (Auto) 9.3 Eos % (Auto) 2.6 Baso % (Auto) 0.4 Neut # (Auto) 4400 Lymph # (Auto) 2300 Sunflower # (Auto) 700 Eos # (Auto) 200 Baso # (Auto) 0 PT 11.6 INR 1.0 APTT 31 ABG pH ABG pCO2 ABG pO2 ABG HCO3 ABG Total CO2 ABG O2 Saturation ABG Base Excess FiO2 Sodium 138 Potassium 3.2 L Chloride 98 Carbon Dioxide 32 BUN 19 Creatinine 0.96 Estimated GFR > 60.0 BUN/Creatinine Ratio 19.8 Glucose 95 Lactate Calcium 8.5 Magnesium 1.9 Total Bilirubin 0.6 AST 24 ALT 22 Alkaline Phosphatase 47 Total Creatine Kinase 123 CK-MB (CK-2) 0.98 CK-MB (CK-2) Rel Index 0.8 L Troponin I < 0.012 NT-Pro-B Natriuret Pep 11 Total Protein 6.8 Albumin 4.1 Globulin 2.7 Albumin/Globulin Ratio 1.5 Urine Color Urine Appearance Urine pH Ur Specific [place] Urine Protein Urine Glucose (UA) Urine Ketones Urine Occult Blood Urine Nitrate Urine Bilirubin Urine Urobilinogen Ur Leukocyte Esterase Urine RBC Urine WBC Urine Bacteria Ur Culture Indicated? Nasal Screen MRSA (PCR) U Opiates 300ng/mL cut Ur Oxycodone Screen Urine Methadone Screen Ur Barbiturates Screen U Tricyclic Antidepress Ur Phencyclidine Scrn Ur Amphetamines Screen U Methamphetamines Scrn Ur MDMA Scrn (Ecstasy) U Benzodiazepines Scrn Urine Cocaine Screen U Marijuana (THC) Screen SARS-CoV-2 (PCR) Blood Type Antibody Screen 12/01/20 12/01/20 12/01/20 19:27 19:27 19:35 WBC RBC Hgb Hct MCV MCH MCHC RDW Plt Count Neut % (Auto) Lymph % (Auto) Sunflower % (Auto) Eos % (Auto) Baso % (Auto) Neut # (Auto) Lymph # (Auto) Sunflower # (Auto) Eos # (Auto) Baso # (Auto) PT INR APTT ABG pH ABG pCO2 ABG pO2 ABG HCO3 ABG Total CO2 ABG O2 Saturation ABG Base Excess FiO2 Sodium Potassium Chloride Carbon Dioxide BUN Creatinine Estimated GFR BUN/Creatinine Ratio Glucose Lactate 1.5 Calcium Magnesium Total Bilirubin AST ALT Alkaline Phosphatase Total Creatine Kinase CK-MB (CK-2) CK-MB (CK-2) Rel Index Troponin I NT-Pro-B Natriuret Pep Total Protein Albumin Globulin Albumin/Globulin Ratio Urine Color Urine Appearance Urine pH Ur Specific [place] Urine Protein Urine Glucose (UA) Urine Ketones Urine Occult Blood Urine Nitrate Urine Bilirubin Urine Urobilinogen Ur Leukocyte Esterase Urine RBC Urine WBC Urine Bacteria Ur Culture Indicated? Nasal Screen MRSA (PCR) U Opiates 300ng/mL cut Negative Ur Oxycodone Screen Negative Urine Methadone Screen Negative Ur Barbiturates Screen Negative U Tricyclic Antidepress Negative Ur Phencyclidine Scrn Negative Ur Amphetamines Screen Negative U Methamphetamines Scrn Negative Ur MDMA Scrn (Ecstasy) Negative U Benzodiazepines Scrn Negative Urine Cocaine Screen Negative U Marijuana (THC) Screen Negative SARS-CoV-2 (PCR) Blood Type A Positive Antibody Screen Negative 12/01/20 12/01/20 12/01/20 19:35 19:44 19:48 WBC RBC Hgb Hct MCV MCH MCHC RDW Plt Count Neut % (Auto) Lymph % (Auto) Sunflower % (Auto) Eos % (Auto) Baso % (Auto) Neut # (Auto) Lymph # (Auto) Sunflower # (Auto) Eos # (Auto) Baso # (Auto) PT INR APTT ABG pH 7.41 ABG pCO2 48.5 H ABG pO2 415 H* ABG HCO3 31 H ABG Total CO2 32 H ABG O2 Saturation 100 ABG Base Excess 6.0 H FiO2 100 Sodium Potassium Chloride Carbon Dioxide BUN Creatinine Estimated GFR BUN/Creatinine Ratio Glucose Lactate Calcium Magnesium Total Bilirubin AST ALT Alkaline Phosphatase Total Creatine Kinase CK-MB (CK-2) CK-MB (CK-2) Rel Index Troponin I NT-Pro-B Natriuret Pep Total Protein Albumin Globulin Albumin/Globulin Ratio Urine Color Yellow Urine Appearance Clear Urine pH 5.5 Ur Specific [place] 1.020 Urine Protein Negative Urine Glucose (UA) Negative Urine Ketones Negative Urine Occult Blood Negative Urine Nitrate Negative Urine Bilirubin Negative Urine Urobilinogen 0.2 Ur Leukocyte Esterase Negative Urine RBC None seen Urine WBC None seen Urine Bacteria None seen Ur Culture Indicated? Cult not indicated Nasal Screen MRSA (PCR) U Opiates 300ng/mL cut Ur Oxycodone Screen Urine Methadone Screen Ur Barbiturates Screen U Tricyclic Antidepress Ur Phencyclidine Scrn Ur Amphetamines Screen U Methamphetamines Scrn Ur MDMA Scrn (Ecstasy) U Benzodiazepines Scrn Urine Cocaine Screen U Marijuana (THC) Screen SARS-CoV-2 (PCR) Negative Blood Type Antibody Screen 12/02/20 12/02/20 12/02/20 00:30 04:45 04:45 WBC 9.1 RBC 4.31 L Hgb 12.8 L Hct 37.8 L MCV 87.7 MCH 29.7 MCHC 33.8 RDW 13.8 Plt Count 124 L Neut % (Auto) 85.6 H D Lymph % (Auto) 10.0 L D Sunflower % (Auto) 4.2 Eos % (Auto) 0.1 L Baso % (Auto) 0.1 Neut # (Auto) 7800 H Lymph # (Auto) 900 L Sunflower # (Auto) 400 Eos # (Auto) 0 Baso # (Auto) 0 PT INR APTT ABG pH ABG pCO2 ABG pO2 ABG HCO3 ABG Total CO2 ABG O2 Saturation ABG Base Excess FiO2 Sodium 136 L Potassium 3.6 Chloride 101 Carbon Dioxide 26 BUN 20 Creatinine 0.97 Estimated GFR > 60.0 BUN/Creatinine Ratio 20.6 Glucose 150 H Lactate Calcium 8.9 Magnesium 1.8 Total Bilirubin 0.8 AST 24 ALT 23 Alkaline Phosphatase 46 Total Creatine Kinase CK-MB (CK-2) CK-MB (CK-2) Rel Index Troponin I NT-Pro-B Natriuret Pep Total Protein 6.7 Albumin 4.1 Globulin 2.6 Albumin/Globulin Ratio 1.6 Urine Color Urine Appearance Urine pH Ur Specific [place] Urine Protein Urine Glucose (UA) Urine Ketones Urine Occult Blood Urine Nitrate Urine Bilirubin Urine Urobilinogen Ur Leukocyte Esterase Urine RBC Urine WBC Urine Bacteria Ur Culture Indicated? Nasal Screen MRSA (PCR) Negative for mrsa U Opiates 300ng/mL cut Ur Oxycodone Screen Urine Methadone Screen Ur Barbiturates Screen U Tricyclic Antidepress Ur Phencyclidine Scrn Ur Amphetamines Screen U Methamphetamines Scrn Ur MDMA Scrn (Ecstasy) U Benzodiazepines Scrn Urine Cocaine Screen U Marijuana (THC) Screen SARS-CoV-2 (PCR) Blood Type Antibody Screen 12/02/20 05:20 WBC RBC Hgb Hct MCV MCH MCHC RDW Plt Count Neut % (Auto) Lymph % (Auto) [place] % (Auto) Eos % (Auto) Baso % (Auto) Neut # (Auto) Lymph # (Auto) [place] # (Auto) Eos # (Auto) Baso # (Auto) PT INR APTT ABG pH 7.51 H ABG pCO2 30.8 L ABG pO2 72 L ABG HCO3 24 ABG Total CO2 25 ABG O2 Saturation 96 ABG Base Excess 1.0 FiO2 30 Sodium Potassium Chloride Carbon Dioxide BUN Creatinine Estimated GFR BUN/Creatinine Ratio Glucose Lactate Calcium Magnesium Total Bilirubin AST ALT Alkaline Phosphatase Total Creatine Kinase CK-MB (CK-2) CK-MB (CK-2) Rel Index Troponin I NT-Pro-B Natriuret Pep Total Protein Albumin Globulin Albumin/Globulin Ratio Urine Color Urine Appearance Urine pH Ur Specific [place] Urine Protein Urine Glucose (UA) Urine Ketones Urine Occult Blood Urine Nitrate Urine Bilirubin Urine Urobilinogen Ur Leukocyte Esterase Urine RBC Urine WBC Urine Bacteria Ur Culture Indicated? Nasal Screen MRSA (PCR) U Opiates 300ng/mL cut Ur Oxycodone Screen Urine Methadone Screen Ur Barbiturates Screen U Tricyclic Antidepress Ur Phencyclidine Scrn Ur Amphetamines Screen U Methamphetamines Scrn Ur MDMA Scrn (Ecstasy) U Benzodiazepines Scrn Urine Cocaine Screen U Marijuana (THC) Screen SARS-CoV-2 (PCR) Blood Type Antibody Screen Exam Vital Signs (past 8 hours): - 12/02/20 03:30 12/02/20 04:00 12/02/20 05:00 Temperature 97.7 F Pulse Rate 55 L 57 L 53 L Respiratory Rate 20 20 20 Blood Pressure 105/61 101/59 L 93/50 L Pulse Oximetry 96 96 96 12/02/20 05:01 12/02/20 05:30 12/02/20 06:00 Temperature 99.3 F Pulse Rate 54 L 55 L 53 L Respiratory Rate 20 20 16 Blood Pressure 94/50 L 90/52 L Pulse Oximetry 96 96 95 12/02/20 06:07 12/02/20 07:00 12/02/20 08:00 Temperature 99.6 F Pulse Rate 54 L 52 L 54 L Respiratory Rate 16 16 16 Blood Pressure 97/54 L 94/52 L 95/52 L Pulse Oximetry 95 95 95 12/02/20 09:00 12/02/20 10:00 Temperature 99.1 F Pulse Rate 56 L 55 L Respiratory Rate 16 16 Blood Pressure 96/53 L 98/53 L Pulse Oximetry 95 95 Fraction of Inspired Oxygen 30 Oxygen Delivery Method Mechanical Ventilation Const Other: intubated, sedated Resp Effort & Inspection: normal respiratory effort Neuro Other: RASS -2 according to [employer] sales consultant TeleICU VTE Deep Vein Thrombosis/Pulmonary Embolism Present on Admission: No Assessment & Plan Assessment and plan (1) Acute neuromuscular respiratory failure: Status: Acute Plan: DUE TO SYNCOPE INDUCED BY ANAPHYLAXIS -Continue Precedex analgosedation -Target RASS -2 to -3 given tongue edema and possible airway involvement (although intubation was reportedly easy); if additional agents are necessary, would use propofol and fentanyl (2) Essential hypertension: Status: Chronic Plan: -Outpt meds on hold; follow (3) 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, s/p endovascular repair Status: Inactive Plan: -Follow (4) Hyperlipidemia: Qualifiers: Hyperlipidemia type: mixed hyperlipidemia Qualified Code(s): E78.2 - Mixed hyperlipidemia Status: Chronic Plan: -Outpt meds on hold; follow (5) Tongue edema: Status: Acute Plan: -Follow clinically; avoid iatrogenic fluid overload (6) Anaphylaxis: Status: Acute Plan: -Start steroids and histamine blockade (7) Hyperglycemia, unspecified: Status: Acute Plan: -Check HgbA1C -Watch given steroid rx Time Spent With Patient Critical Care time: I spent a total of 35 minutes of critical care time on this patient's care today; this time is exclusive of procedural time.
--- NOTE | 2020-12-02 11:46 | DI.CT.S_ITS ---
PROCEDURE: CT STROKE INDICATIONS: R side weakness TECHNIQUE: Noncontrast 4.5 mm thick angled axial sections acquired from the foramen magnum to the vertex, with coronal reformats. For radiation dose reduction, the following was used: automated exposure control, adjustment of mA and/or kV according to patient size. COMPARISON: [facility], CT, CT ANGIO HEAD AND NECK, 12/01/2020, 19:09. FINDINGS: Image quality: Excellent. CSF spaces: Basal cisterns are patent. No extra-axial fluid collections. Ventricles are normal in size and shape. Brain: No midline shift. No intracranial masses or hemorrhage. [place]-white matter interface is normal. Skull and face: Calvarium and visualized facial bones are intact, without suspicious lesions. Sinuses: Small air-fluid level, right maxillary sinus. IMPRESSION: No evidence acute stroke, hemorrhage, or mass. Comment: Findings were discussed with KELLEY Quiles in the ICU at [facility] at the time of study dictation on 12/02/2020 at 2020 hours. This study fulfills neurological imaging criteria for inclusion or exclusion of acute stroke therapies based on available published neurological imaging guidelines. Dictated by: Edmund Haque M.D. on 12/02/2020 at 12:17 Approved by: Edmund Haque M.D. on 12/02/2020 at 12:22
--- NOTE | 2020-12-02 11:55 | DI.CT.S_ITS ---
PROCEDURE: CT ANGIO HEAD AND NECK INDICATIONS: Right-sided weakness TECHNIQUE: Pre-contrast 4.5 mm thick sections acquired from the foramen magnum to the vertex. After the administration of intravenous contrast, 1 mm thick sections acquired from the aortic arch through the [place]. Post-contrast 4.5 mm thick sections then re-acquired from the foramen magnum to the vertex. 3-dimensional hncuvwz-nedofsebu-jqkzsaxbuc (MIP) and/or volume rendering reformats were acquired of the central intracranial vasculature and neck separately. COMPARISON: [facility], CT, CT ANGIO HEAD AND NECK, 12/01/2020, 19:09. FINDINGS: Image quality: Limited by significant venous contamination. BRAIN: CSF spaces: Ventricles are normal in size and shape. Basal cisterns are patent. No extra-axial fluid collections. Brain: No midline shift. No intracranial bleeds or masses. [place]-white matter interface appears intact. Skull and face: Calvarium and facial bones appear intact, without suspicious lesions. Orbits appear normal. Sinuses: Sinuses and mastoids are clear. HEAD CT ANGIOGRAPHY: Anterior circulation: The distal internal carotid arteries are widely patent. There is high-grade narrowing of the left A1 segment (for example series 17 images 99-101). There is luminal irregularity and diminished opacification in the right M2 and M3 segments likely representing atherosclerotic narrowing. Significant attenuation and decreased opacification of the right M 4 NM 5 vessels without evidence of a large vessel occlusion or focal high-grade stenosis identified.. Posterior circulation: Visualized portions of the vertebral arteries demonstrate normal caliber, and join to form a normal appearing basilar artery. Flow within the posterior cerebral arteries is normal and symmetric. No aneurysms are seen. NECK CT ANGIOGRAPHY: Carotid system: The great vessels demonstrate a conventional anatomy as they arise from the aortic arch. The origins of the common carotid arteries appear patent. The common carotid arteries demonstrate normal caliber and courses. The bifurcation regions are both widely patent. The internal carotid arteries demonstrate normal calibers and courses. Posterior circulation: The origins of the vertebral arteries both appear widely patent. The more superior extracranial portions of both vertebral arteries also demonstrate normal courses and calibers. They join to form a normal appearing basilar artery. Soft tissues: Visualized neck soft tissues demonstrate no suspicious abnormalities. Bones: No suspicious bony lesions. Visualized cervical spine appears normally aligned. 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 Flow in the A2 and distal TANJA branches on the left appears normal, with robust collateral across the anterior communicating artery. Intracranial atherosclerosis involving the middle cerebral arteries bilaterally, much more significant on the left where there appears to be moderate narrowing. Tandem affect of multiple stenosis may contribute to an attenuated appearance of the left anterior MCA circulation over the convexity, with numerous vessels opacifying asymmetrically less than those on the right. No focal large vessel occlusion. No acute intracranial abnormality. Any quantitative measurements of stenosis were performed using NASCET criteria. Dictated by: Sunday Ly M.D. on 12/02/2020 at 12:38 Approved by: Sunday Ly M.D. on 12/02/2020 at 12:54
[2020-12-02] MEDS: methylPREDNISolone 125 MG/2 ML VIAL (12:45)
--- NOTE | 2020-12-02 12:55 | PC.NURSE ---
Addendum entered by Isabelle Jay R.N. 12/02/20 15:16: MRI cancelled for transfer to [facility]. Improved movement with RUE and R LE. Off Precedex since code stroke initiation. Wrist restraints in place. at bedside and up dated on POC changes. LR bolus ordered and given. Addendum entered by Isabelle Jay R.N. 12/02/20 12:59: Initial assessment done @ 0810, at bedside with , and noted Pt not using R hand. RLE weak minimal movement except for toes, initiated Code stroke @ 1145. CT CTA of brain and head done by 1211, Tele stroke read and decided no tPA for this patient with last known normals @ 0810 this am. Precidex off since code called and Patient is able to follow instruction and does have notable facial droop to R side. Improved movement of RLE great toe and flexion during assessment. No purposeful movement to RUE at present. Original Note: Am shift Assumed care of Patient, moving all ext [address], tolerating well. Precidex infusing @ .4mcg/kg/hr, slightly hypotensive. Monitoring. Maint IVF infusing. Pt is able to follow instructions, neuro assessment completed. at bedside. Updated about POC. Tele ICU rounds at bedside, will start steroid and antihistamine. Likely will start breathing trial tomorrow if all is tolerated well. Goal is to allow for tounge swelling and laryngeal edema to reduce prior to extubation.
--- NOTE | 2020-12-02 14:47 | PT-IP ANOTE ---
PT eval order received. EMR reviewed and pt is still intubated. checked with nurse and stated that pt is not appropriate for PT today. will f/u.
--- NOTE | 2020-12-02 14:48 | SLP.IPNOTE ---
Received orders. Nursing reported that pt continues to be intubated. Unable to assess swallowing or communication at this time. nursing also reported that pt may be transferring to [facility] hospital. ST on hold at this time.
--- NOTE | 2020-12-02 15:03 | CM.DPNOTE ---
DCP Brief Assessment Note Patient is a 60 yo male who was admitted on 12/01/20 for Code Stroke. Pt has [employer] for insurance and his PCP is Dr. Sea Barbosa. EMR was reviewed. Per MD, pt had EMS intubate him in the field due to respiratory distress and sedated and determined that pt likely had allergic reaction/anaphylactic shock due to seafood rather than a stroke and still in respiratory failure. Pt remains intubated and MD anticipated attempt at extubation tomorrow if he remains stable but then code stroke called and pt taken to CT. RT and nursing and MD have been bedside off and on today and spouse has been very involved but SW awaiting more medical stability prior to bedside assessment today. 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 Plan: SW to meet bedside with pt and spouse tomorrow for d/c planning discussion and to determine if pt can be successfully extubated tomorrow towards determining d/c needs. SHAY Mari
--- NOTE | 2020-12-02 15:09 | P.DS_ITS ---
History of Present Illness History of Present Illness Chief complaint: Code Stroke Narrative: Per Isabelle Ly: Larry Dominguez is a 60-year-old male nonsmoker with history of hypertension, mixed hyperlipidemia, TIA and prior aortic dissection repair with endovascular approach 2017 presents by EMS in critical condition.? He had been in his normal state of health until just after 6:00 p.m. when he approached his and said I do not feel right, sooner after he collapsed. When they arrived he had GCS of 3, snoring respirations.? He was promptly intubated with an 8 0 endotracheal tube, sedation included ketamine 250 mg times to, rocuronium administered at 6:55 p.m. the patient's further endorses that at no time did the patient receive cardiac resuscitation in the field or in the ED. the patient is able to shake his head in response to questions and denied any irregular heart issues, chest pain, or shortness of breath.? He was able to convey that he had a great deal of discomfort from the tubing in his airway.? Tele ICU .net programmer Dr. Rueda was consulted by phone conference with ED Dr. Emery, and also video consult during admit to the ICU. After interviewing patient's at the bedside who is an excellent historian, she reports that her spouse had had increasing allergic reactions to the IV contrast when having multiple imaging.? She reports that tonight he had had a large seafood platter and complained of swelling of his tongue, numbness and tingling to his face, and his face became quite red in presentation just prior to his collapse.? She had perceived that the patient was slurring his words but now believes it was related to the swelling of his tongue. The history in presentation likely represents an anaphylactic reaction to seafood and or IV contrast, excluding all other causes at this time based on clinical work-up and presentation. Upon admit vital signs are stable, labs are unremarkable,? troponin, BNP, urine, tox screen and COVID are all WNL. Chest/Abd/Pelvis CTA demonstrated no evidence of aortic rupture, with stable appearance of thoracic aortic endograft, with a noted interval increase in aneurysmal dilatation of the infrarenal abdominal aorta, from 4.1 cm to 4.6 cm.? Head neck CTA was negative for stroke hemorrhage or masses.? Chest x-ray was negative for gross infiltrates.? Patient admitted for acute respiratory failure with hypoxia and acute encephalopathy due to suspected? seafood anaphylaxis IgE mediated response. Discharge Providers Provider Date of admission: 12/01/20 22:05 Discharge Date: 12/02/20 Primary care physician: Sea Barbosa MD Consults: 12/01/20 22:19 Consult to Tele-.net programmer Routine Comment: Consulting Provider: Celeste [employer] Reason for consultation: [employer] services Has provider been notified: Yes 12/02/20 13:36 Consult to Discharge Planning Routine Comment: Consult to Occupational Therapy Evaluate & Treat Comment: Physician Instructions: Evaluate and treat Consult to Physical Therapy Evaluate & Treat Comment: Physician Instructions: Evaluate and Treat Consult to Speech Therapy Evaluate & Treat Comment: Physician Instructions: Evaluate and treat Discharge provider: Albert Tilley MD Summary Hospital Course Discharge Diagnosis: 1. Acute CVA, presumed 2. Syncope, possibly anaphylaxis 3. Acute respiratory failure 4. History of TIA 5. Hypertension 6. Hyperlipidemia 7. Hx aortic dissection s/p endograft in 2017 8. Mild thrombocytopenia 9. Infrarenal AAA Hospital Course: Mr. Dominguez was admitted after the above event, where 20-30 anuj ondina after eating seafood he developed red face, slurred speech, tongue swelling. He was found to have GCS of 3 and intubated by EMS. He presented to the ED on 12/01 at 1900. Code stroke called, CT head showed no acute stroke, CT angio head/neck showed no acute large vessel disease. Troponin was negative. EKG and cardiac telemetry demonstrated sinus rhythm with no arrhythmias. CT angio of his chest showed stable appearance of the aortic endograft, known infrafrenal AAA of 4.6cm. He was started on prendisone, famotidine, benadryl. He was kept intubated due to tongue swelling. On the morning of 12/02 at 11:40am he was noted to have movement on his right side. At 8:10am he was moving all extremities. He was still intubated, and had been recently on sedation. Code stroke was called and he was ordered for stat CT head and CT angio head/neck. Teleneurologist was called at 11:50am. They evaluated patient and images after head CT was completed. CT head and CT angio head/neck showed no definitive stroke and no large vessel occlusion. There was question of possible pontine infarct vs stroke. TPA was discussed and patient was deemed outside window to safely give TPA. There was no intervenable vessel. He did have borderline low blood pressures in the high 90s systolic, he was given fluids and his blood pressure improved. His blood pressure meds were held throughout. He was given a full dose aspirin. He did begin to have purposeful movement return to his right side. He was transferred to higher level of care. Discharge time: 60 minutes Critical care time: I provided 60 minutes of critical care time outside of other billable procedures Exam Vital Signs (past 8 hours): - 12/02/20 08:00 12/02/20 09:00 12/02/20 10:00 Temperature 99.1 F Pulse Rate 54 L 56 L 55 L Respiratory Rate 16 16 16 Blood Pressure 95/52 L 96/53 L 98/53 L Pulse Oximetry 95 95 95 12/02/20 12:21 12/02/20 13:00 12/02/20 14:00 Temperature 98 F Pulse Rate 68 56 L 54 L Respiratory Rate 16 16 16 Blood Pressure 132/66 115/62 115/62 Pulse Oximetry 94 95 96 Fraction of Inspired Oxygen 30 Oxygen Delivery Method Mechanical Ventilation Narrative Exam Narrative: General:?intubated, alert following commands Lungs:? clear bilaterally, no wheezes, rhonchi, rales Cardio:? regular rate and rhythm with no murmurs Abdomen:? Soft nontender. Marsh is in place and draining unobstructed. Skin:?warm and dry with no rashes Neuro:? weakness in right leg, right hand, right face, no gaze deviation, following commands Objective Labs Result Diagrams: 12/02/20 04:45 12/02/20 04:45 Labs: Laboratory Results - last 24 hr 12/01/20 12/01/20 12/01/20 19:27 19:27 19:27 WBC 7.6 RBC 4.46 L Hgb 13.4 L Hct 39.2 L MCV 87.9 MCH 30.1 MCHC 34.2 RDW 13.9 Plt Count 137 L Neut % (Auto) 57.7 Lymph % (Auto) 30.0 Nolan % (Auto) 9.3 Eos % (Auto) 2.6 Baso % (Auto) 0.4 Neut # (Auto) 4400 Lymph # (Auto) 2300 Nolan # (Auto) 700 Eos # (Auto) 200 Baso # (Auto) 0 PT 11.6 INR 1.0 APTT 31 ABG pH ABG pCO2 ABG pO2 ABG HCO3 ABG Total CO2 ABG O2 Saturation ABG Base Excess FiO2 Sodium 138 Potassium 3.2 L Chloride 98 Carbon Dioxide 32 BUN 19 Creatinine 0.96 Estimated GFR > 60.0 BUN/Creatinine Ratio 19.8 Glucose 95 Lactate Calcium 8.5 Magnesium 1.9 Total Bilirubin 0.6 AST 24 ALT 22 Alkaline Phosphatase 47 Total Creatine Kinase 123 CK-MB (CK-2) 0.98 CK-MB (CK-2) Rel Index 0.8 L Troponin I < 0.012 NT-Pro-B Natriuret Pep 11 Total Protein 6.8 Albumin 4.1 Globulin 2.7 Albumin/Globulin Ratio 1.5 Urine Color Urine Appearance Urine pH Ur Specific [place] Urine Protein Urine Glucose (UA) Urine Ketones Urine Occult Blood Urine Nitrate Urine Bilirubin Urine Urobilinogen Ur Leukocyte Esterase Urine RBC Urine WBC Urine Bacteria Ur Culture Indicated? Nasal Screen MRSA (PCR) U Opiates 300ng/mL cut Ur Oxycodone Screen Urine Methadone Screen Ur Barbiturates Screen U Tricyclic Antidepress Ur Phencyclidine Scrn Ur Amphetamines Screen U Methamphetamines Scrn Ur MDMA Scrn (Ecstasy) U Benzodiazepines Scrn Urine Cocaine Screen U Marijuana (THC) Screen SARS-CoV-2 (PCR) Blood Type Antibody Screen 12/01/20 12/01/20 12/01/20 19:27 19:27 19:35 WBC RBC Hgb Hct MCV MCH MCHC RDW Plt Count Neut % (Auto) Lymph % (Auto) Nolan % (Auto) Eos % (Auto) Baso % (Auto) Neut # (Auto) Lymph # (Auto) Nolan # (Auto) Eos # (Auto) Baso # (Auto) PT INR APTT ABG pH ABG pCO2 ABG pO2 ABG HCO3 ABG Total CO2 ABG O2 Saturation ABG Base Excess FiO2 Sodium Potassium Chloride Carbon Dioxide BUN Creatinine Estimated GFR BUN/Creatinine Ratio Glucose Lactate 1.5 Calcium Magnesium Total Bilirubin AST ALT Alkaline Phosphatase Total Creatine Kinase CK-MB (CK-2) CK-MB (CK-2) Rel Index Troponin I NT-Pro-B Natriuret Pep Total Protein Albumin Globulin Albumin/Globulin Ratio Urine Color Urine Appearance Urine pH Ur Specific [place] Urine Protein Urine Glucose (UA) Urine Ketones Urine Occult Blood Urine Nitrate Urine Bilirubin Urine Urobilinogen Ur Leukocyte Esterase Urine RBC Urine WBC Urine Bacteria Ur Culture Indicated? Nasal Screen MRSA (PCR) U Opiates 300ng/mL cut Negative Ur Oxycodone Screen Negative Urine Methadone Screen Negative Ur Barbiturates Screen Negative U Tricyclic Antidepress Negative Ur Phencyclidine Scrn Negative Ur Amphetamines Screen Negative U Methamphetamines Scrn Negative Ur MDMA Scrn (Ecstasy) Negative U Benzodiazepines Scrn Negative Urine Cocaine Screen Negative U Marijuana (THC) Screen Negative SARS-CoV-2 (PCR) Blood Type A Positive Antibody Screen Negative 12/01/20 12/01/20 12/01/20 19:35 19:44 19:48 WBC RBC Hgb Hct MCV MCH MCHC RDW Plt Count Neut % (Auto) Lymph % (Auto) Nolan % (Auto) Eos % (Auto) Baso % (Auto) Neut # (Auto) Lymph # (Auto) Nolan # (Auto) Eos # (Auto) Baso # (Auto) PT INR APTT ABG pH 7.41 ABG pCO2 48.5 H ABG pO2 415 H* ABG HCO3 31 H ABG Total CO2 32 H ABG O2 Saturation 100 ABG Base Excess 6.0 H FiO2 100 Sodium Potassium Chloride Carbon Dioxide BUN Creatinine Estimated GFR BUN/Creatinine Ratio Glucose Lactate Calcium Magnesium Total Bilirubin AST ALT Alkaline Phosphatase Total Creatine Kinase CK-MB (CK-2) CK-MB (CK-2) Rel Index Troponin I NT-Pro-B Natriuret Pep Total Protein Albumin Globulin Albumin/Globulin Ratio Urine Color Yellow Urine Appearance Clear Urine pH 5.5 Ur Specific [place] 1.020 Urine Protein Negative Urine Glucose (UA) Negative Urine Ketones Negative Urine Occult Blood Negative Urine Nitrate Negative Urine Bilirubin Negative Urine Urobilinogen 0.2 Ur Leukocyte Esterase Negative Urine RBC None seen Urine WBC None seen Urine Bacteria None seen Ur Culture Indicated? Cult not indicated Nasal Screen MRSA (PCR) U Opiates 300ng/mL cut Ur Oxycodone Screen Urine Methadone Screen Ur Barbiturates Screen U Tricyclic Antidepress Ur Phencyclidine Scrn Ur Amphetamines Screen U Methamphetamines Scrn Ur MDMA Scrn (Ecstasy) U Benzodiazepines Scrn Urine Cocaine Screen U Marijuana (THC) Screen SARS-CoV-2 (PCR) Negative Blood Type Antibody Screen 12/02/20 12/02/20 12/02/20 00:30 04:45 04:45 WBC 9.1 RBC 4.31 L Hgb 12.8 L Hct 37.8 L MCV 87.7 MCH 29.7 MCHC 33.8 RDW 13.8 Plt Count 124 L Neut % (Auto) 85.6 H D Lymph % (Auto) 10.0 L D Nolan % (Auto) 4.2 Eos % (Auto) 0.1 L Baso % (Auto) 0.1 Neut # (Auto) 7800 H Lymph # (Auto) 900 L Nolan # (Auto) 400 Eos # (Auto) 0 Baso # (Auto) 0 PT INR APTT ABG pH ABG pCO2 ABG pO2 ABG HCO3 ABG Total CO2 ABG O2 Saturation ABG Base Excess FiO2 Sodium 136 L Potassium 3.6 Chloride 101 Carbon Dioxide 26 BUN 20 Creatinine 0.97 Estimated GFR > 60.0 BUN/Creatinine Ratio 20.6 Glucose 150 H Lactate Calcium 8.9 Magnesium 1.8 Total Bilirubin 0.8 AST 24 ALT 23 Alkaline Phosphatase 46 Total Creatine Kinase CK-MB (CK-2) CK-MB (CK-2) Rel Index Troponin I NT-Pro-B Natriuret Pep Total Protein 6.7 Albumin 4.1 Globulin 2.6 Albumin/Globulin Ratio 1.6 Urine Color Urine Appearance Urine pH Ur Specific [place] Urine Protein Urine Glucose (UA) Urine Ketones Urine Occult Blood Urine Nitrate Urine Bilirubin Urine Urobilinogen Ur Leukocyte Esterase Urine RBC Urine WBC Urine Bacteria Ur Culture Indicated? Nasal Screen MRSA (PCR) Negative for mrsa U Opiates 300ng/mL cut Ur Oxycodone Screen Urine Methadone Screen Ur Barbiturates Screen U Tricyclic Antidepress Ur Phencyclidine Scrn Ur Amphetamines Screen U Methamphetamines Scrn Ur MDMA Scrn (Ecstasy) U Benzodiazepines Scrn Urine Cocaine Screen U Marijuana (THC) Screen SARS-CoV-2 (PCR) Blood Type Antibody Screen 12/02/20 05:20 WBC RBC Hgb Hct MCV MCH MCHC RDW Plt Count Neut % (Auto) Lymph % (Auto) Nolan % (Auto) Eos % (Auto) Baso % (Auto) Neut # (Auto) Lymph # (Auto) Nolan # (Auto) Eos # (Auto) Baso # (Auto) PT INR APTT ABG pH 7.51 H ABG pCO2 30.8 L ABG pO2 72 L ABG HCO3 24 ABG Total CO2 25 ABG O2 Saturation 96 ABG Base Excess 1.0 FiO2 30 Sodium Potassium Chloride Carbon Dioxide BUN Creatinine Estimated GFR BUN/Creatinine Ratio Glucose Lactate Calcium Magnesium Total Bilirubin AST ALT Alkaline Phosphatase Total Creatine Kinase CK-MB (CK-2) CK-MB (CK-2) Rel Index Troponin I NT-Pro-B Natriuret Pep Total Protein Albumin Globulin Albumin/Globulin Ratio Urine Color Urine Appearance Urine pH Ur Specific [place] Urine Protein Urine Glucose (UA) Urine Ketones Urine Occult Blood Urine Nitrate Urine Bilirubin Urine Urobilinogen Ur Leukocyte Esterase Urine RBC Urine WBC Urine Bacteria Ur Culture Indicated? 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 Social History marital status: number of children: 1 household members: spouse lives independently: Yes caregiver/support person: No housing: house pets and animals: Yes education level: other (Bachelors) occupational status: employed [employer]: [employer] leisure activities: fishing, reading and other (Golf, Watching TV, Building things in yard) Smoking Status: Never smoker Tobacco: How many years used: 0 quit status: quit date established (Never Started) alcohol intake: current substance use type: does not use Discharge Plan Discharge Plan Patient Disposition: [facility] Under care of provider: Dr. Rubio Provider Discharge Comment: transfer for higher level of care for CVA and respiratory failure Discharge Health Status Multidrug resistant organism: No MDRO Diet/Activity/Treatments Diet: Diet as Tolerated Discharge Data Primary Care Provider: Sea Barbosa Quality VTE Deep Vein Thrombosis/Pulmonary Embolism Present on Admission: No MIPS - DC The patient has current or prior documentation of left ventricular ejection fraction (LVEF) less than 40%, or moderate or severely depressed left ventricular systolic function.: No
[2020-12-02] MEDS: ASPIRIN 325 MG TABLET PO (15:14)
[2020-12-02] MEDS: diphenhydrAMINE 25 MG TABLET 50 MG PO (15:14)
[2020-12-02] MEDS: FAMOTIDINE 20 MG TABLET PO (15:14)
[2020-12-02] MEDS: LACTATED RINGERS 1,000 ML 1000 ML IV (15:21)
--- NOTE | 2020-12-02 17:03 | PC.NURSE ---
Pt left unit at 1657 woth Airlift to [facility] Neuro ICU room 221. Reprot given to Katt BENSON at 1645. Greg given pt paper work and COBRA form. Pt's spouse, Manjula was educated and plans to go to transferring facility tomorrow. Pt is intubated with vent settings: FiO2 30% PEEP5 Tidal volume 480 and RR 16. Pt is alert and follows directions. NIH score 13 with R sided weakness. No IV medication infusing at this time.
== END 2020-12-02 16:57 | disposition short-term general hospital (02) | DRG 70 ==
LOC: ED 19:15 → AC 22:07 → ICU 12-02 04:50
PROVIDERS: Internal Medicine Pulmonary Disease; Admitting Provider Nurse Practitioner Family; Emergency Provider Emergency Medicine; PCP Internal Medicine; Referring Provider Emergency Medicine; Visit Provider Nurse Practitioner Family
DX: G93.40 Encephalopathy, unspecified (principal); J96.01 Acute respiratory failure with hypoxia; I63.9 Cerebral infarction, unspecified; J96.00 Acute respiratory failure, unspecified whether with hypoxia or hypercapnia; T78.2XXA Anaphylactic shock, unspecified, initial encounter; E87.6 Hypokalemia; D69.6 Thrombocytopenia, unspecified; I71.4 Abdominal aortic aneurysm, without rupture; E78.5 Hyperlipidemia, unspecified; I10 Essential (primary) hypertension; R73.9 Hyperglycemia, unspecified; R29.719 NIHSS score 19; R29.714 NIHSS score 14; Z95.818 Presence of other cardiac implants and grafts; Z20.822 Contact with and (suspected) exposure to COVID-19
CPT/HCPCS: 36415; 36600; 70450; 70496; 70498; 71045; 71275; 74174; 80053; 80305; 81001; 82550; 82553; 82805; 82962; 83605; 83735; 83880; 84484; 85025; 85610; 85730; 86850; 86900; 86901; 87635; 87797; 94002; 94003; 94799; 96361; 96365; 96375; 96376; 99285; 99291; 99292; C9803; A9270; J1170; J1650; J1815; J2704; J2930; J3010; J3490

== ENCOUNTER → 2021-01-13 15:50 | Outpatient (CLI) | payer OTHER, SELFPAY ==
[2020-12-02 01:11] VITALS: BMI 36.1
[2020-12-02 11:10] VITALS: RESP 0
[2020-12-02 14:50] VITALS: PULSE 60; RESP 19; O2SAT 96
[2021-01-13] MEDS: COVID-19 VACC #3, MRNA(MOD) 50 MCG/0.25 ML VIAL IM (16:26)
== END ==
PROVIDERS: Family Provider Internal Medicine; PCP Internal Medicine; Visit Provider Internal Medicine
DX: Z23 Encounter for immunization (principal)
CPT/HCPCS: 0013A; 91301

== ENCOUNTER → 2021-01-25 06:38 | Outpatient (CLI) | payer OTHER, SELFPAY ==
[2020-12-02 01:11] VITALS: BMI 36.1
[2020-12-02 11:10] VITALS: RESP 0
[2020-12-02 14:50] VITALS: PULSE 60; RESP 19; O2SAT 96
--- NOTE | 2021-01-25 | DI.MRI.S_ITS ---
PROCEDURE: MR ANGIO HEAD WO CON INDICATIONS: CEREBRAL INFARCT. TECHNIQUE: Noncontrast axial 3-D [id number] MR angiogram, with 3-dimensional maximum intensity projection (MIP) reformats of the internal carotid arteries and posterior circulation then performed. COMPARISON: Outside Facility, RG, MRI BRAIN WITHOUT CONTRAST, 12/03/2020, 12:28. [facility], MR, MR HEAD/BRAIN WO/W CON, 11/18/2019, 14:05. [facility], CT, CT ANGIO HEAD AND NECK, 12/01/2020, 19:09. [facility], CT, CT ANGIO HEAD AND NECK, 12/02/2020, 11:57. Outside Facility, RG, MRI ANGIOGRAM HEAD W/O CONTRAST, 12/03/2020, 12:28. Outside Facility, RG, MRI ANGIOGRAM HEAD W/O CONTRAST, 12/08/2020, 15:36. FINDINGS: Image quality: Excellent. Anterior circulation: Intracranial internal carotid arteries demonstrate normal size and intraluminal flow signal. The flow within the paired anterior cerebral arteries is normal and symmetric. The flow within the middle cerebral arteries is normal and symmetric. The anterior communicating artery is seen. No stenoses, occlusions, or aneurysms. Posterior circulation: Distal right vertebral artery is hypoplastic, as before. Left vertebral artery is normal in caliber. Basilar artery is within normal limits. No evidence of residual thrombus. origin of the left posterior cerebral artery. The flow within the posterior cerebral arteries is normal and symmetric. No stenoses, occlusions, or aneurysms. IMPRESSION: 1. No evidence of residual basilar artery thrombus. 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 Dictated by: Milton Schrader M.D. on 01/26/2021 at 8:45 Approved by: Milton Schrader M.D. on 01/26/2021 at 9:44
== END ==
PROVIDERS: Family Provider Internal Medicine; PCP Internal Medicine; Referring Provider Psychiatry & Neurology Neurology; Visit Provider Psychiatry & Neurology Neurology
DX: I63.9 Cerebral infarction, unspecified (principal); I65.1 Occlusion and stenosis of basilar artery
CPT/HCPCS: 70544

== ENCOUNTER 2021-02-02 13:45 | Outpatient (RCR) | payer OTHER, SELFPAY ==
[2020-12-02 01:11] VITALS: BMI 36.1
[2020-12-02 11:10] VITALS: RESP 0
[2020-12-02 14:50] VITALS: PULSE 60; RESP 19; O2SAT 96
--- NOTE | 2021-01-02 12:37 | PT.OIE ---
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) Essential hypertension History of adenomatous polyp of colon Hyperlipidemia (08/24/11) Hypogonadism Obesity (BMI 30-39.9) Obstructive sleep apnea S/P aortic dissection repair (01/03/17) Systolic murmur (02/11/15) Unspecified asthma, uncomplicated Past Surgical History (Last Reviewed 12/01/20 @ 23:32 by Isabelle Ly [facility]) S/P aortic dissection repair (01/03/17) Visit Care Team Role Provider Type Sea Barbosa MD Family Provider Physician Primary Care Provider Specialty: Internal Medicine Address: [address] [place] [address], [facility] Email: [email or web address] Miguel Ángel Naik MD Attending Provider Non-Staff Referring Provider Specialty: Physical Medicine and Rehab Address: [address] [place] [address] [address], [place], [facility] Email: Physical Therapy Initial Evaluation PT-OP-A Visit Information Start: 01/02/21 08:18 Freq: Status: Active Protocol: Document 01/02/21 10:04 (Rec: 01/02/21 10:30 [email or web address]) Out-Patient Physical Therapy Visit Information Visit Information Visit Type Initial Evaluation Visit Start Time 08:15 Visit Stop Time 09:00 Total Visit Minutes 45 Visit Number 03/14 Number of LIFE INSURANCE SALES AGENT Visits 0 Evaluation Information Evaluation Date 01/02/21 Precautions Precautions post CVA 12/02/20 hyperlipidernia HTN thoracic aneurysm LVEF <40 % Obesity LOUISA PT-OP-B Current Condition Start: 01/02/21 08:18 Freq: Status: Active Protocol: Document 01/02/21 10:04 (Rec: 01/02/21 10:30 [email or web address]) Current Condition History of Current Condition Onset Date 12/01/20 Current Complaints Post CVA ataxic gait, decreased balance, numbness/ tingling on R side History of Current Condition Larry is a very pleasant 60 yo right handed male here for his ataxic gait and decreased balance post CVA on 12/01/20. He initially collapsed without loss of consciousness after dinner on 12/01/20 due to anaphylaxis shock secondary to seafood exposure . He was intubated by paramedics and sent to [facility]. 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 He was then transferred tot the neuro ICU at the [facility] for further workup and acute rehab. He was seen by speech therapy, Occupational therapy and physical therapy 3 hours a day x 5days pet week. He recently returned home on 12/28/20 since his overall mobility has improved significantly. His current complaints are decreased balance and unsteady gait, along with tingling/ numbness to his R side of the body. He has no loss of ROM/ strength and able to walk up to 1/2 mile with/ without a cane. He has been using his stationary bike at home for a couple miles a day since DC from [facility]. He has not had any falls since his stroke. 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 [facility] Current Functional Impairments (Reported) Functional Limitations- ADL's occasional supervision from use SPC as needed Functional Limitations- Mobility/Gait able to walk up to 1/2 mile with/without SPC PT-OP-C Subjective Start: 01/02/21 08:18 Freq: Status: Active Protocol: Document 01/02/21 10:04 (Rec: 01/02/21 10:30 [email or web address]) Patient Questionnaires ABC- Activity Specific Balance Confidence Scale ABC Score 86.25 ABC Functional Impairment 1 to <20% Impaired (Score 81- 99) PT-OP-E Functional Tests Start: 01/02/21 08:18 Freq: Status: Active Protocol: Document 01/02/21 10:04 (Rec: 01/02/21 10:30 [email or web address]) Functional Tests 30 Second Sit to Stand Test Score 11 times Comments requires anterior trunk, unstable occasionally, R knee hyperextended Dynamic Gait Index (DGI) Score 14 DGI Impairment Rating 40 to <60% Impaired (Score 10- 14) Timed Up and Go (TUG) Score 14 Comments 16,13,13. Need UE for support to descend TUG Impairment Rating 40 to <60% Impaired (Score 14- 15) PT-OP-G Mobility & Gait Start: 01/02/21 08:18 Freq: Status: Active Protocol: Document 01/02/21 10:04 (Rec: 01/02/21 10:30 [email or web address]) OP Gait Assessment Gait Gait Assistance Required: Standby Assistance Assistive Devices Assistive Device None,Straight Cane Gait Deviations General Gait Pattern Ataxic Factors Limiting Gait Function Factors Limiting Gait Function Abnormal Tonal Influences, Decreased Activity Tolerance, Poor Balance,Poor Safety Awareness Comments Gait Comments pt walks with an ataxic gait with uneven step length and width without the use of SPC. He does need to slow down to pace himself occasionally. He also walks WBOS with hyperextended knee R>L. PT-OP-H Neuro Start: 01/02/21 08:18 Freq: Status: Active Protocol: Document 01/02/21 10:04 (Rec: 01/02/21 10:30 [email or web address]) Sensation Evaluation Gross Sensation Gross Sensation Right UE Impaired,Right LE Impaired Sensation Description Numbness,Tingling Comments Summary Comments consistent numbness and tingling sensation from head to toe ( R side only ) Coordination Evaluation Upper Extremity Tests Right Finger to Nose Test Minimal Impairment Finger to Therapist's Finger Test Minimal Impairment Finger Opposition Test Minimal Impairment Pronation/Supination Test Minimal Impairment Lower Extremity Tests Alternate Heel to Knee; Heel to Toe Test Minimal Impairment Heel on [place]am Test Minimal Impairment Drawing a [place] w/Foot Test Minimal Impairment Comments Coordination Comments noticeable min impairment ( slight increased time taken/ overshoot/undershoot) for coordination testings but he is able to complete. Deep Tendon Reflex & Clonus Assessment Deep Tendon Reflex Bilateral Achilles Deep Tendon Reflex 3+ Normal But Brisk Bilateral Patellar Deep Tendon Reflex 3+ Normal But Brisk PT-OP-K Range of Motion Start: 01/02/21 08:18 Freq: Status: Active Protocol: Document 01/02/21 10:04 (Rec: 01/02/21 12:22 [email or web address]) Cervical Spine Range of Motion Cervical Spine Active Degrees Comments WFL Shoulder Goniometric Range of Motion Shoulder Right Active Shoulder ROM WFL Yes Left Active Shoulder ROM WFL Yes Hip Goniometric Range of Motion Hip Right Active Hip ROM WFL Yes Left Active Hip ROM WFL Yes PT-OP-M Strength Start: 01/02/21 08:18 Freq: Status: Active Protocol: Document 01/02/21 10:04 (Rec: 01/02/21 12:36 [email or web address]) Shoulder Strength Shoulder Manual Muscle Testing Right Flexion 5 Normal Extension 5 Normal Abduction (C5) 5 Normal Adduction 5 Normal Left Flexion 5 Normal Extension 5 Normal Abduction (C5) 5 Normal Adduction 5 Normal Hip Strength Hip Manual Muscle Testing Right Flexion (L2) 4+ Good+ Extension (S1) 5 Normal Abduction 5 Normal Adduction 5 Normal Left Flexion (L2) 5 Normal Extension (S1) 5 Normal Abduction 5 Normal Adduction 5 Normal Knee Strength Knee Manual Muscle Testing Left Flexion (S2) 5 Normal Extension (L3) 5 Normal Right Flexion (S2) 5 Normal Extension (L3) 5 Normal Ankle/Foot Strength Ankle and Foot Manual Muscle Testing Right Dorsiflexion (L4) 5 Normal Plantarflexion (S1) 5 Normal Left Dorsiflexion (L4) 5 Normal Plantarflexion (S1) 5 Normal PT-OP-T Assessment and Plan Start: 01/02/21 08:18 Freq: Status: Active Protocol: Document 01/02/21 10:04 (Rec: 01/02/21 12:22 [email or web address]) Physical Therapy Assessment Rehab Potential Rehabilitation Potential Good Evaluation Complexity Number of Personal Factors/Comorbidities 3 or More Number of Body Systems Impaired 4 or More Clinical Presentation at Evaluation Stable Impairments Impairments Activity Tolerance,Balance, Functional Activities, Functional Mobility,Gait, Posture,ROM,Sensation, Transfers Other Concerns Barriers to Rehabilitation see precautions and personal factors. Goals stair climbing Impairment pt needs B rails to climb stair Short Term Goal (STG) pt will be able to climb stair with 1 rail safely at home and at work. STG Duration 4 weeks Correction Goal (LTG) pt will be able to climb stair without railings safely at home and at work. LTG Duration 8 weeks activity tolerance Impairment able to tolerate walking up to 0.5 mile with/ without a cane Short Term Goal (STG) pt will be able to show improved gait balance and activitiy tolerance to complete a total of 3 miles per week with/ without a cane. STG Duration 4weeks Correction Goal (LTG) pt will be able to show improved gait balance and activitiy tolerance to complete a total of 5 miles per week without a cane safely . LTG Duration 8 weeks DGI Impairment pt scores 14/24 Short Term Goal (STG) pt will be able to show improved dynamic gait balance by scoring 18/24 to reduce his fall risks STG Duration 4 weeks Electronic Page Makeup System Operator Goal (LTG) pt will be able to show improved dynamic gait balance by scoring 21/24 to reduce his fall risks in community LTG Duration 8 weeks Assessment Summary Assessment Larry is a very pleasant 60 yo right handed male here for his ataxic gait and decreased balance post CVA on 12/01/20. He was admitted to ER on due to anaphylaxis shock secondary to seafood exposure. 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 He was then transferred tot the [facility] for acute rehab with PT/OT/ST . He recently got DC home on 12/28/20 since his overall mobility has improved significantly. Upon assessment , He presents an ataxic gait with numbness/tingling sensation to his entire R side of the body. He does have minimal impairment for fine motor skills and coordination. (with slightly increased time taken). His gross strength and ROM = WFL. His DGI = 14/24 , TUG =14s, 30 STS =11 times but unsteady. His DGI and TUG scores are below his peers. He has been using a SPC occasionally for walking and he hasnt had any falls since his CVA. Pt will surely benefit from skilled therapy to normalize his overall movement coordination, balance , gait stability which allows him to mobilize at home and community safely. Physical Therapy Plan Frequency and Duration Frequency of Treatment 2x/Week Duration of Treatment 8 weeks Plan of Care Start Date 01/02/21 Plan of Care End Date 03/03/21 Therapeutic Interventions Therapeutic Interventions Aquatic Therapy,Balance Training,Gait Training,Home Exercise Program,Neuromuscular Re-education,Patient/ Caregiver Education,Self-Care/ Home Management,Therapeutic Activities,Therapeutic Exercises Modalities Cold Pack/Ice Massage,Electric Stimulation,Hot Packs, Infrared Therapy,Traction- Mechanical,Ultrasound Next Visit Focus/Plan Next Note Type Treatment Note Next Visit Plan 6MWT balance training in place tandem stance romberg stance EC/EO split stance squat (not fully lock his knee )
--- NOTE | 2021-01-05 11:26 | PT.OTN ---
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 (01/05/21) Other sequelae of cerebral infarction (01/05/21) Other abnormalities of gait and mobility (01/05/21) Ataxia, unspecified (01/05/21) Physical Therapy Treatment Note PT-OP-A Visit Information Start: 01/02/21 08:18 Freq: Status: Active Protocol: Document 01/05/21 09:15 HH (Rec: 01/05/21 11:26 HH [id number]) Out-Patient Physical Therapy Visit Information Visit Information Visit Type Treatment Note Visit Start Time 09:46 Visit Stop Time 10:30 Total Visit Minutes 44 Visit Number 04/14 Number of HAND SEWER SHOES Visits 0 PT-OP-B Current Condition Start: 01/02/21 08:18 Freq: Status: Active Protocol: Document 01/02/21 10:04 HH (Rec: 01/02/21 10:30 HH [email or web address]) Current Condition History of Current Condition Onset Date 12/01/20 Current Complaints Post CVA ataxic gait, decreased balance, numbness/ tingling on R side History of Current Condition Larry is a very pleasant 60 yo right handed male here for his ataxic gait and decreased balance post CVA on 12/01/20. He initially collapsed without loss of consciousness after dinner on 12/01/20 due to anaphylaxis shock secondary to seafood exposure . He was intubated by paramedics [facility]. 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 He was then transferred tot the neuro ICU at the [facility] for further workup and acute rehab. He was seen by speech therapy, Occupational therapy and physical therapy 3 hours a day x 5days pet week. He recently returned home on 12/28/20 since his overall mobility has improved significantly. His current complaints are decreased balance and unsteady gait, along with tingling/ numbness to his R side of the body. He has no loss of ROM/ strength and able to walk up to 1/2 mile with/ without a cane. He has been using his stationary bike at home for a couple miles a day since DC from [facility]. He has not had any falls since his stroke. 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 I will carry my cane around and use it as needed. PT-OP-E Functional Tests Start: 01/02/21 08:18 Freq: Status: Active Protocol: Document 01/02/21 10:04 (Rec: 01/02/21 10:30 [email or web address]) Functional Tests 30 Second Sit to Stand Test Score 11 times Comments requires anterior trunk, unstable occasionally, R knee hyperextended Dynamic Gait Index (DGI) Score 14 DGI Impairment Rating 40 to <60% Impaired (Score 10- 14) Timed Up and Go (TUG) Score 14 Comments 16,13,13. Need UE for support to descend TUG Impairment Rating 40 to <60% Impaired (Score 14- 15) PT-OP-G Mobility & Gait Start: 01/02/21 08:18 Freq: Status: Active Protocol: Document 01/02/21 10:04 (Rec: 01/02/21 10:30 [email or web address]) OP Gait Assessment Gait Gait Assistance Required: Standby Assistance Assistive Devices Assistive Device None,Straight Cane Gait Deviations General Gait Pattern Ataxic Factors Limiting Gait Function Factors Limiting Gait Function Abnormal Tonal Influences, Decreased Activity Tolerance, Poor Balance,Poor Safety Awareness Comments Gait Comments pt walks with an ataxic gait with uneven step length and width without the use of SPC. He does need to slow down to pace himself occasionally. He also walks WBOS with hyperextended knee R>L. PT-OP-H Neuro Start: 01/02/21 08:18 Freq: Status: Active Protocol: Document 01/02/21 10:04 (Rec: 01/02/21 10:30 [email or web address]) Sensation Evaluation Gross Sensation Gross Sensation Right UE Impaired,Right LE Impaired Sensation Description Numbness,Tingling Comments Summary Comments consistent numbness and tingling sensation from head to toe ( R side only ) Coordination Evaluation Upper Extremity Tests Right Finger to Nose Test Minimal Impairment Finger to Therapist's Finger Test Minimal Impairment Finger Opposition Test Minimal Impairment Pronation/Supination Test Minimal Impairment Lower Extremity Tests Alternate Heel to Knee; Heel to Toe Test Minimal Impairment Heel on [place] Test Minimal Impairment Drawing a [place] w/Foot Test Minimal Impairment Comments Coordination Comments noticeable min impairment ( slight increased time taken/ overshoot/undershoot) for coordination testings but he is able to complete. Deep Tendon Reflex & Clonus Assessment Deep Tendon Reflex Bilateral Achilles Deep Tendon Reflex 3+ Normal But Brisk Bilateral Patellar Deep Tendon Reflex 3+ Normal But Brisk PT-OP-K Range of Motion Start: 01/02/21 08:18 Freq: Status: Active Protocol: Document 01/02/21 10:04 (Rec: 01/02/21 12:22 [email or web address]) Cervical Spine Range of Motion Cervical Spine Active Degrees Comments WFL Shoulder Goniometric Range of Motion Shoulder Right Active Shoulder ROM WFL Yes Left Active Shoulder ROM WFL Yes Hip Goniometric Range of Motion Hip Right Active Hip ROM WFL Yes Left Active Hip ROM WFL Yes PT-OP-M Strength Start: 01/02/21 08:18 Freq: Status: Active Protocol: Document 01/02/21 10:04 (Rec: 01/02/21 12:36 [email or web address]) Shoulder Strength Shoulder Manual Muscle Testing Right Flexion 5 Normal Extension 5 Normal Abduction (C5) 5 Normal Adduction 5 Normal Left Flexion 5 Normal Extension 5 Normal Abduction (C5) 5 Normal Adduction 5 Normal Hip Strength Hip Manual Muscle Testing Right Flexion (L2) 4+ Good+ Extension (S1) 5 Normal Abduction 5 Normal Adduction 5 Normal Left Flexion (L2) 5 Normal Extension (S1) 5 Normal Abduction 5 Normal Adduction 5 Normal Knee Strength Knee Manual Muscle Testing Left Flexion (S2) 5 Normal Extension (L3) 5 Normal Right Flexion (S2) 5 Normal Extension (L3) 5 Normal Ankle/Foot Strength Ankle and Foot Manual Muscle Testing Right Dorsiflexion (L4) 5 Normal Plantarflexion (S1) 5 Normal Left Dorsiflexion (L4) 5 Normal Plantarflexion (S1) 5 Normal PT-OP-Q Treatments Start: 01/02/21 08:18 Freq: Status: Active Protocol: Document 01/05/21 09:15 (Rec: 01/05/21 11:26 [id number]) Cardio Equipment Recumbent Stepper (Sci-Fit) Duration (Minutes) 6 Resistance 5 Gym Equipment Shuttle Recovery SL squat Details focus on end range extension with good control Resistance 50# Shuttle Recovery Platform Stable Reps/Time prevent hyperextension Neuro Re-Education Treatment Balance Activities tandem Surface ground level Comments 3 finger width, tandem, pt is able to hold >20 s x5 romberg Surface ground level Comments EC, against wall hold 20s x 5 for HEP Coordination Activities marching Details assisted first then pt guide the movement Comments 20 times with reciprocal armswing by holding PVC pipe 20 times each with soft tapping, cues on preventing hyperknee extension stair tap Details 2 UE on handrails Comments 20 times each, soft tapping 5sets for HEP reciprocal armswing Details assisted first then pt guide the movement Equipment 2 PVC pipe Reps/Duration 5 mins PT-OP-T Assessment and Plan Start: 01/02/21 08:18 Freq: Status: Active Protocol: Document 01/05/21 09:15 (Rec: 01/05/21 11:26 [id number]) Physical Therapy Assessment Goals stair climbing Impairment pt needs B rails to climb stair Short Term Goal (STG) pt will be able to climb stair with 1 rail safely at home and at work. STG Duration 4 weeks Skilled Nursing Goal (LTG) pt will be able to climb stair without railings safely at home and at work. LTG Duration 8 weeks activity tolerance Impairment able to tolerate walking up to 0.5 mile with/ without a cane Short Term Goal (STG) pt will be able to show improved gait balance and activitiy tolerance to complete a total of 3 miles per week with/ without a cane. STG Duration 4weeks Customer Experience Analyst Goal (LTG) pt will be able to show improved gait balance and activitiy tolerance to complete a total of 5 miles per week without a cane safely . LTG Duration 8 weeks DGI Impairment pt scores 14/24 Short Term Goal (STG) pt will be able to show improved dynamic gait balance by scoring 18/24 to reduce his fall risks STG Duration 4 weeks Customer Experience Analyst Goal (LTG) pt will be able to show improved dynamic gait balance by scoring 21/24 to reduce his fall risks in community LTG Duration 8 weeks Assessment Summary Assessment pt came in with better gait quality. Started coordination based ex for him including reciprocal armswing, marching, stair tap, along with balance training. He does have difficulty with NBOS but he improves quickly with repetitions. He also needs cues to prevent R knee hyperextension in SL stance. Physical Therapy Plan Frequency and Duration Frequency of Treatment 2x/Week Duration of Treatment 8 weeks Plan of Care Start Date 01/02/21 Plan of Care End Date 03/03/21 Therapeutic Interventions Therapeutic Interventions Aquatic Therapy,Balance Training,Gait Training,Home Exercise Program,Neuromuscular Re-education,Patient/ Caregiver Education,Self-Care/ Home Management,Therapeutic Activities,Therapeutic Exercises Modalities Cold Pack/Ice Massage,Electric Stimulation,Hot Packs, Infrared Therapy,Traction- Mechanical,Ultrasound Next Visit Focus/Plan Next Note Type Treatment Note Next Visit Plan 6MWT balance training in place tandem stance romberg stance EC/EO split stance squat (not fully lock his knee )
--- NOTE | 2021-01-10 12:13 | PT.OTN ---
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 (01/10/21) Other sequelae of cerebral infarction (01/10/21) Other abnormalities of gait and mobility (01/10/21) Ataxia, unspecified (01/10/21) Physical Therapy Treatment Note PT-OP-A Visit Information Start: 01/02/21 08:18 Freq: Status: Active Protocol: Document 01/10/21 10:32 (Rec: 01/10/21 12:13 [id number]) Out-Patient Physical Therapy Visit Information Visit Information Visit Type Treatment Note Visit Note pt did not come in with a SPC Visit Start Time 10:35 Visit Stop Time 11:15 Total Visit Minutes 40 Visit Number 05/12 Number of BASKET MACHINE OPERATOR Visits 0 PT-OP-B Current Condition Start: 01/02/21 08:18 Freq: Status: Active Protocol: Document 01/02/21 10:04 HH (Rec: 01/02/21 10:30 [email or web address]) Current Condition History of Current Condition Onset Date 12/01/20 Current Complaints Post CVA ataxic gait, decreased balance, numbness/ tingling on R side History of Current Condition Larry is a very pleasant 60 yo right handed male here for his ataxic gait and decreased balance post CVA on 12/01/20. He initially collapsed without loss of consciousness after dinner on 12/01/20 due to anaphylaxis shock secondary to seafood exposure . He was intubated by paramedics and sent to [facility]. 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 He was then transferred tot the neuro ICU at the [facility] for further workup and acute rehab. He was seen by speech therapy, Occupational therapy and physical therapy 3 hours a day x 5days pet week. He recently returned home on 12/28/20 since his overall mobility has improved significantly. His current complaints are decreased balance and unsteady gait, along with tingling/ numbness to his R side of the body. He has no loss of ROM/ strength and able to walk up to 1/2 mile with/ without a cane. He has been using his stationary bike at home for a couple miles a day since DC from [place]. He has not had any falls since his stroke. 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 Eileen been practicing all your exercises so far. Patient Reported Progress Improving PT-OP-E Functional Tests Start: 01/02/21 08:18 Freq: Status: Active Protocol: Document 01/02/21 10:04 HH (Rec: 01/02/21 10:30 [email or web address]) Functional Tests 30 Second Sit to Stand Test Score 11 times Comments requires anterior trunk, unstable occasionally, R knee hyperextended Dynamic Gait Index (DGI) Score 14 DGI Impairment Rating 40 to <60% Impaired (Score 10- 14) Timed Up and Go (TUG) Score 14 Comments 16,13,13. Need UE for support to descend TUG Impairment Rating 40 to <60% Impaired (Score 14- 15) PT-OP-G Mobility & Gait Start: 01/02/21 08:18 Freq: Status: Active Protocol: Document 01/02/21 10:04 HH (Rec: 01/02/21 10:30 [email or web address]) OP Gait Assessment Gait Gait Assistance Required: Standby Assistance Assistive Devices Assistive Device None,Straight Cane Gait Deviations General Gait Pattern Ataxic Factors Limiting Gait Function Factors Limiting Gait Function Abnormal Tonal Influences, Decreased Activity Tolerance, Poor Balance,Poor Safety Awareness Comments Gait Comments pt walks with an ataxic gait with uneven step length and width without the use of SPC. He does need to slow down to pace himself occasionally. He also walks WBOS with hyperextended knee R>L. PT-OP-H Neuro Start: 01/02/21 08:18 Freq: Status: Active Protocol: Document 01/02/21 10:04 HH (Rec: 01/02/21 10:30 [email or web address]) Sensation Evaluation Gross Sensation Gross Sensation Right UE Impaired,Right LE Impaired Sensation Description Numbness,Tingling Comments Summary Comments consistent numbness and tingling sensation from head to toe ( R side only ) Coordination Evaluation Upper Extremity Tests Right Finger to Nose Test Minimal Impairment Finger to Therapist's Finger Test Minimal Impairment Finger Opposition Test Minimal Impairment Pronation/Supination Test Minimal Impairment Lower Extremity Tests Alternate Heel to Knee; Heel to Toe Test Minimal Impairment Heel on Elam Test Minimal Impairment Drawing a Hopi w/Foot Test Minimal Impairment Comments Coordination Comments noticeable min impairment ( slight increased time taken/ overshoot/undershoot) for coordination testings but he is able to complete. Deep Tendon Reflex & Clonus Assessment Deep Tendon Reflex Bilateral Achilles Deep Tendon Reflex 3+ Normal But Brisk Bilateral Patellar Deep Tendon Reflex 3+ Normal But Brisk PT-OP-K Range of Motion Start: 01/02/21 08:18 Freq: Status: Active Protocol: Document 01/02/21 10:04 (Rec: 01/02/21 12:22 [email or web address]) Cervical Spine Range of Motion Cervical Spine Active Degrees Comments WFL Shoulder Goniometric Range of Motion Shoulder Right Active Shoulder ROM WFL Yes Left Active Shoulder ROM WFL Yes Hip Goniometric Range of Motion Hip Right Active Hip ROM WFL Yes Left Active Hip ROM WFL Yes PT-OP-M Strength Start: 01/02/21 08:18 Freq: Status: Active Protocol: Document 01/02/21 10:04 (Rec: 01/02/21 12:36 [email or web address]) Shoulder Strength Shoulder Manual Muscle Testing Right Flexion 5 Normal Extension 5 Normal Abduction (C5) 5 Normal Adduction 5 Normal Left Flexion 5 Normal Extension 5 Normal Abduction (C5) 5 Normal Adduction 5 Normal Hip Strength Hip Manual Muscle Testing Right Flexion (L2) 4+ Good+ Extension (S1) 5 Normal Abduction 5 Normal Adduction 5 Normal Left Flexion (L2) 5 Normal Extension (S1) 5 Normal Abduction 5 Normal Adduction 5 Normal Knee Strength Knee Manual Muscle Testing Left Flexion (S2) 5 Normal Extension (L3) 5 Normal Right Flexion (S2) 5 Normal Extension (L3) 5 Normal Ankle/Foot Strength Ankle and Foot Manual Muscle Testing Right Dorsiflexion (L4) 5 Normal Plantarflexion (S1) 5 Normal Left Dorsiflexion (L4) 5 Normal Plantarflexion (S1) 5 Normal PT-OP-Q Treatments Start: 01/02/21 08:18 Freq: Status: Active Protocol: Document 01/10/21 10:32 (Rec: 01/10/21 12:13 [id number]) Cardio Equipment Elliptical Duration (Minutes) 3 Resistance 4 Other SOb noted, 2+ 1 min Neuro Re-Education Treatment Balance Activities hurdles Reps/Duration 8 mins Comments step to pattern within //bar tandem Surface ground level Comments full tandem, pt is able to hold >20 s x5 arms to the side for counter balance romberg Surface ground level Comments EC, against wall hold 20s x 5 for HEP Coordination Activities ball kick Equipment soccer ball Reps/Duration 5 mins ball toss Equipment tennis ball Comments underhand and overhand marching Details marching Comments 20 ft x 8 laps good reciprocal armswings. stair tap Details 2 UE on handrails Comments 20 times each, soft tapping 5sets for HEP PT-OP-T Assessment and Plan Start: 01/02/21 08:18 Freq: Status: Active Protocol: Document 01/10/21 10:32 (Rec: 01/10/21 12:13 [id number]) Physical Therapy Assessment Goals stair climbing Impairment pt needs B rails to climb stair Short Term Goal (STG) pt will be able to climb stair with 1 rail safely at home and at work. STG Duration 4 weeks Usp Goal (LTG) pt will be able to climb stair without railings safely at home and at work. LTG Duration 8 weeks activity tolerance Impairment able to tolerate walking up to 0.5 mile with/ without a cane Short Term Goal (STG) pt will be able to show improved gait balance and activitiy tolerance to complete a total of 3 miles per week with/ without a cane. STG Duration 4weeks Bundle Tier Goal (LTG) pt will be able to show improved gait balance and activitiy tolerance to complete a total of 5 miles per week without a cane safely . LTG Duration 8 weeks DGI Impairment pt scores 14/24 Short Term Goal (STG) pt will be able to show improved dynamic gait balance by scoring 18/24 to reduce his fall risks STG Duration 4 weeks Bundle Tier Goal (LTG) pt will be able to show improved dynamic gait balance by scoring 21/24 to reduce his fall risks in community LTG Duration 8 weeks Physical Therapy Plan Frequency and Duration Frequency of Treatment 2x/Week Duration of Treatment 8 weeks Plan of Care Start Date 01/02/21 Plan of Care End Date 03/03/21 Therapeutic Interventions Therapeutic Interventions Aquatic Therapy,Balance Training,Gait Training,Home Exercise Program,Neuromuscular Re-education,Patient/ Caregiver Education,Self-Care/ Home Management,Therapeutic Activities,Therapeutic Exercises Modalities Cold Pack/Ice Massage,Electric Stimulation,Hot Packs, Infrared Therapy,Traction- Mechanical,Ultrasound Next Visit Focus/Plan Next Note Type Treatment Note Next Visit Plan 6MWT balance training in place tandem stance romberg stance EC/EO split stance squat (not fully lock his knee )
--- NOTE | 2021-01-13 12:05 | PT.OTN ---
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 (01/13/21) Other sequelae of cerebral infarction (01/13/21) Other abnormalities of gait and mobility (01/13/21) Ataxia, unspecified (01/13/21) Physical Therapy Treatment Note PT-OP-A Visit Information Start: 01/02/21 08:18 Freq: Status: Active Protocol: Document 01/13/21 09:46 (Rec: 01/13/21 12:05 [id number]) Out-Patient Physical Therapy Visit Information Visit Information Visit Type Treatment Note Visit Note pt did not come in with a SPC Visit Start Time 09:46 Visit Stop Time 10:30 Total Visit Minutes 44 Visit Number 06/12 Number of CUSTOMER SERVICE LEADER Visits 0 PT-OP-B Current Condition Start: 01/02/21 08:18 Freq: Status: Active Protocol: Document 01/02/21 10:04 HH (Rec: 01/02/21 10:30 [email or web address]) Current Condition History of Current Condition Onset Date 12/01/20 Current Complaints Post CVA ataxic gait, decreased balance, numbness/ tingling on R side History of Current Condition Larry is a very pleasant 60 yo right handed male here for his ataxic gait and decreased balance post CVA on 12/01/20. He initially collapsed without loss of consciousness after dinner on 12/01/20 due to anaphylaxis shock secondary to seafood exposure . He was intubated by paramedics and sent to [facility]. 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 He was then transferred tot the neuro ICU at the [facility] for further workup and acute rehab. He was seen by speech therapy, Occupational therapy and physical therapy 3 hours a day x 5days pet week. He recently returned home on 12/28/20 since his overall mobility has improved significantly. His current complaints are decreased balance and unsteady gait, along with tingling/ numbness to his R side of the body. He has no loss of ROM/ strength and able to walk up to 1/2 mile with/ without a cane. He has been using his stationary bike at home for a couple miles a day since DC from [place]. He has not had any falls since his stroke. 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 I have a little R hip pain and im not sure if i need to stretch. Patient Reported Progress Improving PT-OP-E Functional Tests Start: 01/02/21 08:18 Freq: Status: Active Protocol: Document 01/02/21 10:04 HH (Rec: 01/02/21 10:30 [email or web address]) Functional Tests 30 Second Sit to Stand Test Score 11 times Comments requires anterior trunk, unstable occasionally, R knee hyperextended Dynamic Gait Index (DGI) Score 14 DGI Impairment Rating 40 to <60% Impaired (Score 10- 14) Timed Up and Go (TUG) Score 14 Comments 16,13,13. Need UE for support to descend TUG Impairment Rating 40 to <60% Impaired (Score 14- 15) PT-OP-G Mobility & Gait Start: 01/02/21 08:18 Freq: Status: Active Protocol: Document 01/02/21 10:04 (Rec: 01/02/21 10:30 [email or web address]) OP Gait Assessment Gait Gait Assistance Required: Standby Assistance Assistive Devices Assistive Device None,Straight Cane Gait Deviations General Gait Pattern Ataxic Factors Limiting Gait Function Factors Limiting Gait Function Abnormal Tonal Influences, Decreased Activity Tolerance, Poor Balance,Poor Safety Awareness Comments Gait Comments pt walks with an ataxic gait with uneven step length and width without the use of SPC. He does need to slow down to pace himself occasionally. He also walks WBOS with hyperextended knee R>L. PT-OP-H Neuro Start: 01/02/21 08:18 Freq: Status: Active Protocol: Document 01/02/21 10:04 HH (Rec: 01/02/21 10:30 [email or web address]) Sensation Evaluation Gross Sensation Gross Sensation Right UE Impaired,Right LE Impaired Sensation Description Numbness,Tingling Comments Summary Comments consistent numbness and tingling sensation from head to toe ( R side only ) Coordination Evaluation Upper Extremity Tests Right Finger to Nose Test Minimal Impairment Finger to Therapist's Finger Test Minimal Impairment Finger Opposition Test Minimal Impairment Pronation/Supination Test Minimal Impairment Lower Extremity Tests Alternate Heel to Knee; Heel to Toe Test Minimal Impairment Heel on [place] Test Minimal Impairment Drawing a [place] w/Foot Test Minimal Impairment Comments Coordination Comments noticeable min impairment ( slight increased time taken/ overshoot/undershoot) for coordination testings but he is able to complete. Deep Tendon Reflex & Clonus Assessment Deep Tendon Reflex Bilateral Achilles Deep Tendon Reflex 3+ Normal But Brisk Bilateral Patellar Deep Tendon Reflex 3+ Normal But Brisk PT-OP-K Range of Motion Start: 01/02/21 08:18 Freq: Status: Active Protocol: Document 01/02/21 10:04 (Rec: 01/02/21 12:22 [email or web address]) Cervical Spine Range of Motion Cervical Spine Active Degrees Comments WFL Shoulder Goniometric Range of Motion Shoulder Right Active Shoulder ROM WFL Yes Left Active Shoulder ROM WFL Yes Hip Goniometric Range of Motion Hip Right Active Hip ROM WFL Yes Left Active Hip ROM WFL Yes PT-OP-M Strength Start: 01/02/21 08:18 Freq: Status: Active Protocol: Document 01/02/21 10:04 (Rec: 01/02/21 12:36 [email or web address]) Shoulder Strength Shoulder Manual Muscle Testing Right Flexion 5 Normal Extension 5 Normal Abduction (C5) 5 Normal Adduction 5 Normal Left Flexion 5 Normal Extension 5 Normal Abduction (C5) 5 Normal Adduction 5 Normal Hip Strength Hip Manual Muscle Testing Right Flexion (L2) 4+ Good+ Extension (S1) 5 Normal Abduction 5 Normal Adduction 5 Normal Left Flexion (L2) 5 Normal Extension (S1) 5 Normal Abduction 5 Normal Adduction 5 Normal Knee Strength Knee Manual Muscle Testing Left Flexion (S2) 5 Normal Extension (L3) 5 Normal Right Flexion (S2) 5 Normal Extension (L3) 5 Normal Ankle/Foot Strength Ankle and Foot Manual Muscle Testing Right Dorsiflexion (L4) 5 Normal Plantarflexion (S1) 5 Normal Left Dorsiflexion (L4) 5 Normal Plantarflexion (S1) 5 Normal PT-OP-Q Treatments Start: 01/02/21 08:18 Freq: Status: Active Protocol: Document 01/13/21 09:46 (Rec: 01/13/21 12:05 [id number]) Cardio Equipment Elliptical Duration (Minutes) 4 Resistance 2 Other SOb noted, 10s break at 3rd min Recumbent Stepper (Sci-Fit) Duration (Minutes) 3 Resistance 5 Gym Equipment Shuttle Recovery SL squat Details focus on end range extension with good control Resistance 50# Shuttle Recovery Platform Stable Reps/Time prevent hyperextension, slow during extension Shuttle Balance red Comments static balance shows good progress CGA Neuro Re-Education Treatment Balance Activities hurdles Reps/Duration 8 mins Comments step to pattern within //bar tandem Surface ground level Comments full tandem, pt is able to hold >20 s x5 arms to the side for counter balance romberg Surface ground level Comments EC, against wall hold 20s x 5 for HEP Coordination Activities ball kick Equipment soccer ball Reps/Duration 5 mins Comments open area, aide CGA ball toss Equipment tennis ball Comments underhand and overhand open area, aide CGA marching Details marching Comments 20 ft x 8 laps good reciprocal armswings. open area, aide CGA stair tap Details 2 UE on handrails Comments 20 times each, soft tapping 5sets for HEP PT-OP-T Assessment and Plan Start: 01/02/21 08:18 Freq: Status: Active Protocol: Document 01/13/21 09:46 HH (Rec: 01/13/21 12:05 [id number]) Physical Therapy Assessment Goals stair climbing Impairment pt needs B rails to climb stair Short Term Goal (STG) pt will be able to climb stair with 1 rail safely at home and at work. STG Duration 4 weeks Asphalt Worker Goal (LTG) pt will be able to climb stair without railings safely at home and at work. LTG Duration 8 weeks activity tolerance Impairment able to tolerate walking up to 0.5 mile with/ without a cane Short Term Goal (STG) pt will be able to show improved gait balance and activitiy tolerance to complete a total of 3 miles per week with/ without a cane. STG Duration 4weeks Asphalt Worker Goal (LTG) pt will be able to show improved gait balance and activitiy tolerance to complete a total of 5 miles per week without a cane safely . LTG Duration 8 weeks DGI Impairment pt scores 14/24 Short Term Goal (STG) pt will be able to show improved dynamic gait balance by scoring 18/24 to reduce his fall risks STG Duration 4 weeks Mcfp Goal (LTG) pt will be able to show improved dynamic gait balance by scoring 21/24 to reduce his fall risks in community LTG Duration 8 weeks Assessment Summary Assessment pt continues to progress. He walks with a narrower MIR today with good reciprocal armswings. He can tolerate balance board today as well. Physical Therapy Plan Frequency and Duration Frequency of Treatment 2x/Week Duration of Treatment 8 weeks Plan of Care Start Date 01/02/21 Plan of Care End Date 03/03/21 Therapeutic Interventions Therapeutic Interventions Aquatic Therapy,Balance Training,Gait Training,Home Exercise Program,Neuromuscular Re-education,Patient/ Caregiver Education,Self-Care/ Home Management,Therapeutic Activities,Therapeutic Exercises Modalities Cold Pack/Ice Massage,Electric Stimulation,Hot Packs, Infrared Therapy,Traction- Mechanical,Ultrasound Next Visit Focus/Plan Next Note Type Treatment Note Next Visit Plan 6MWT balance training in place tandem stance romberg stance EC/EO split stance squat (not fully lock his knee )
--- NOTE | 2021-01-17 12:08 | PT.OTN ---
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 (01/17/21) Other sequelae of cerebral infarction (01/17/21) Other abnormalities of gait and mobility (01/17/21) Ataxia, unspecified (01/17/21) Physical Therapy Treatment Note PT-OP-A Visit Information Start: 01/02/21 08:18 Freq: Status: Active Protocol: Document 01/17/21 11:23 (Rec: 01/17/21 12:08 [id number]) Out-Patient Physical Therapy Visit Information Visit Information Visit Type Treatment Note Visit Note no SPC Visit Start Time 11:16 Visit Stop Time 12:05 Total Visit Minutes 49 Visit Number 07/12 Number of BOILERMAKER PIPE FITTER Visits 0 PT-OP-B Current Condition Start: 01/02/21 08:18 Freq: Status: Active Protocol: Document 01/02/21 10:04 (Rec: 01/02/21 10:30 [email or web address]) Current Condition History of Current Condition Onset Date 12/01/20 Current Complaints Post CVA ataxic gait, decreased balance, numbness/ tingling on R side History of Current Condition Larry is a very pleasant 60 yo right handed male here for his ataxic gait and decreased balance post CVA on 12/01/20. He initially collapsed without loss of consciousness after dinner on 12/01/20 due to anaphylaxis shock secondary to seafood exposure . He was intubated by paramedics and sent to [facility]. 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 He was then transferred tot the neuro ICU at the [facility] for further workup and acute rehab. He was seen by speech therapy, Occupational therapy and physical therapy 3 hours a day x 5days pet week. He recently returned home on 12/28/20 since his overall mobility has improved significantly. His current complaints are decreased balance and unsteady gait, along with tingling/ numbness to his R side of the body. He has no loss of ROM/ strength and able to walk up to 1/2 mile with/ without a cane. He has been using his stationary bike at home for a couple miles a day since DC from [place]. He has not had any falls since his stroke. 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 My hip is feeling better and same as the knee control Patient Reported Progress Improving PT-OP-E Functional Tests Start: 01/02/21 08:18 Freq: Status: Active Protocol: Document 01/02/21 10:04 (Rec: 01/02/21 10:30 [email or web address]) Functional Tests 30 Second Sit to Stand Test Score 11 times Comments requires anterior trunk, unstable occasionally, R knee hyperextended Dynamic Gait Index (DGI) Score 14 DGI Impairment Rating 40 to <60% Impaired (Score 10- 14) Timed Up and Go (TUG) Score 14 Comments 16,13,13. Need UE for support to descend TUG Impairment Rating 40 to <60% Impaired (Score 14- 15) PT-OP-G Mobility & Gait Start: 01/02/21 08:18 Freq: Status: Active Protocol: Document 01/02/21 10:04 (Rec: 01/02/21 10:30 [email or web address]) OP Gait Assessment Gait Gait Assistance Required: Standby Assistance Assistive Devices Assistive Device None,Straight Cane Gait Deviations General Gait Pattern Ataxic Factors Limiting Gait Function Factors Limiting Gait Function Abnormal Tonal Influences, Decreased Activity Tolerance, Poor Balance,Poor Safety Awareness Comments Gait Comments pt walks with an ataxic gait with uneven step length and width without the use of SPC. He does need to slow down to pace himself occasionally. He also walks WBOS with hyperextended knee R>L. PT-OP-H Neuro Start: 01/02/21 08:18 Freq: Status: Active Protocol: Document 01/02/21 10:04 HH (Rec: 01/02/21 10:30 [email or web address]) Sensation Evaluation Gross Sensation Gross Sensation Right UE Impaired,Right LE Impaired Sensation Description Numbness,Tingling Comments Summary Comments consistent numbness and tingling sensation from head to toe ( R side only ) Coordination Evaluation Upper Extremity Tests Right Finger to Nose Test Minimal Impairment Finger to Therapist's Finger Test Minimal Impairment Finger Opposition Test Minimal Impairment Pronation/Supination Test Minimal Impairment Lower Extremity Tests Alternate Heel to Knee; Heel to Toe Test Minimal Impairment Heel on [place]am Test Minimal Impairment Drawing a [place] w/Foot Test Minimal Impairment Comments Coordination Comments noticeable min impairment ( slight increased time taken/ overshoot/undershoot) for coordination testings but he is able to complete. Deep Tendon Reflex & Clonus Assessment Deep Tendon Reflex Bilateral Achilles Deep Tendon Reflex 3+ Normal But Brisk Bilateral Patellar Deep Tendon Reflex 3+ Normal But Brisk PT-OP-K Range of Motion Start: 01/02/21 08:18 Freq: Status: Active Protocol: Document 01/02/21 10:04 (Rec: 01/02/21 12:22 [email or web address]) Cervical Spine Range of Motion Cervical Spine Active Degrees Comments WFL Shoulder Goniometric Range of Motion Shoulder Right Active Shoulder ROM WFL Yes Left Active Shoulder ROM WFL Yes Hip Goniometric Range of Motion Hip Right Active Hip ROM WFL Yes Left Active Hip ROM WFL Yes PT-OP-M Strength Start: 01/02/21 08:18 Freq: Status: Active Protocol: Document 01/02/21 10:04 (Rec: 01/02/21 12:36 [email or web address]) Shoulder Strength Shoulder Manual Muscle Testing Right Flexion 5 Normal Extension 5 Normal Abduction (C5) 5 Normal Adduction 5 Normal Left Flexion 5 Normal Extension 5 Normal Abduction (C5) 5 Normal Adduction 5 Normal Hip Strength Hip Manual Muscle Testing Right Flexion (L2) 4+ Good+ Extension (S1) 5 Normal Abduction 5 Normal Adduction 5 Normal Left Flexion (L2) 5 Normal Extension (S1) 5 Normal Abduction 5 Normal Adduction 5 Normal Knee Strength Knee Manual Muscle Testing Left Flexion (S2) 5 Normal Extension (L3) 5 Normal Right Flexion (S2) 5 Normal Extension (L3) 5 Normal Ankle/Foot Strength Ankle and Foot Manual Muscle Testing Right Dorsiflexion (L4) 5 Normal Plantarflexion (S1) 5 Normal Left Dorsiflexion (L4) 5 Normal Plantarflexion (S1) 5 Normal PT-OP-Q Treatments Start: 01/02/21 08:18 Freq: Status: Active Protocol: Document 01/17/21 11:23 HH (Rec: 01/17/21 12:08 [id number]) Cardio Equipment Elliptical Duration (Minutes) 4 Resistance 4 Other SOb noted, 10s break at 3rd min Bicycle (Upright) Duration (Minutes) 3 Resistance 6 Gym Equipment Shuttle Recovery SL squat Details focus on end range extension with good control Resistance 50# Shuttle Recovery Platform Stable Reps/Time improved knee extension control Shuttle Balance red Comments static balance shows good progress CGA Neuro Re-Education Treatment Balance Activities S walk Details around cones Surface ground level backward walking Details EC then EC Surface ground level open area Equipment CGA cone peanut picker Details bend over to peanut picker ball up balls on cones side step Details EO then EC Surface ground level open area Equipment CGA hurdles Reps/Duration 8 mins Comments step to pattern within //bar PT-OP-T Assessment and Plan Start: 01/02/21 08:18 Freq: Status: Active Protocol: Document 01/17/21 11:23 (Rec: 01/17/21 12:08 [id number]) Physical Therapy Assessment Goals stair climbing Impairment pt needs B rails to climb stair Short Term Goal (STG) pt will be able to climb stair with 1 rail safely at home and at work. STG Duration 4 weeks Long-Term Goal (LTG) pt will be able to climb stair without railings safely at home and at work. LTG Duration 8 weeks activity tolerance Impairment able to tolerate walking up to 0.5 mile with/ without a cane Short Term Goal (STG) pt will be able to show improved gait balance and activitiy tolerance to complete a total of 3 miles per week with/ without a cane. STG Duration 4weeks Long-Term Goal (LTG) pt will be able to show improved gait balance and activitiy tolerance to complete a total of 5 miles per week without a cane safely . LTG Duration 8 weeks DGI Impairment pt scores 14/24 Short Term Goal (STG) pt will be able to show improved dynamic gait balance by scoring 18/24 to reduce his fall risks STG Duration 4 weeks Roof Assembler Goal (LTG) pt will be able to show improved dynamic gait balance by scoring 21/24 to reduce his fall risks in community LTG Duration 8 weeks Assessment Summary Assessment pt shows improved gait efficiency with less excessive movements. This session focused on walking in different directions and functional activities such as bend over to peanut picker objects. I noticed that he tends to get wobbly during quick turns. Physical Therapy Plan Frequency and Duration Frequency of Treatment 2x/Week Duration of Treatment 8 weeks Plan of Care Start Date 01/02/21 Plan of Care End Date 03/03/21 Therapeutic Interventions Therapeutic Interventions Aquatic Therapy,Balance Training,Gait Training,Home Exercise Program,Neuromuscular Re-education,Patient/ Caregiver Education,Self-Care/ Home Management,Therapeutic Activities,Therapeutic Exercises Modalities Cold Pack/Ice Massage,Electric Stimulation,Hot Packs, Infrared Therapy,Traction- Mechanical,Ultrasound Next Visit Focus/Plan Next Note Type Treatment Note Next Visit Plan 6MWT balance training in place tandem stance romberg stance EC/EO split stance squat (not fully lock his knee )
--- NOTE | 2021-01-24 10:52 | PT.OTN ---
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 (01/24/21) Other sequelae of cerebral infarction (01/24/21) Other abnormalities of gait and mobility (01/24/21) Ataxia, unspecified (01/24/21) Physical Therapy Treatment Note PT-OP-A Visit Information Start: 01/02/21 08:18 Freq: Status: Active Protocol: Document 01/24/21 09:45 (Rec: 01/24/21 10:52 [id number]) Out-Patient Physical Therapy Visit Information Visit Information Visit Type Treatment Note Visit Note no SPC Visit Start Time 09:47 Visit Stop Time 10:30 Total Visit Minutes 43 Visit Number 08/12 Number of BRYOLOGIST Visits 0 PT-OP-B Current Condition Start: 01/02/21 08:18 Freq: Status: Active Protocol: Document 01/02/21 10:04 HH (Rec: 01/02/21 10:30 [email or web address]) Current Condition History of Current Condition Onset Date 12/01/20 Current Complaints Post CVA ataxic gait, decreased balance, numbness/ tingling on R side History of Current Condition Larry is a very pleasant 60 yo right handed male here for his ataxic gait and decreased balance post CVA on 12/01/20. He initially collapsed without loss of consciousness after dinner on 12/01/20 due to anaphylaxis shock secondary to seafood exposure . He was intubated by paramedics and sent to [facility]. 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 He was then transferred tot the neuro ICU at the [facility] for further workup and acute rehab. He was seen by speech therapy, Occupational therapy and physical therapy 3 hours a day x 5days pet week. He recently returned home on 12/28/20 since his overall mobility has improved significantly. His current complaints are decreased balance and unsteady gait, along with tingling/ numbness to his R side of the body. He has no loss of ROM/ strength and able to walk up to 1/2 mile with/ without a cane. He has been using his stationary bike at home for a couple miles a day since DC from [place]. He has not had any falls since his stroke. 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 I still turn my feet out. Quick turn is not quite there yet. Patient Reported Progress Improving PT-OP-E Functional Tests Start: 01/02/21 08:18 Freq: Status: Active Protocol: Document 01/02/21 10:04 HH (Rec: 01/02/21 10:30 [email or web address]) Functional Tests 30 Second Sit to Stand Test Score 11 times Comments requires anterior trunk, unstable occasionally, R knee hyperextended Dynamic Gait Index (DGI) Score 14 DGI Impairment Rating 40 to <60% Impaired (Score 10- 14) Timed Up and Go (TUG) Score 14 Comments 16,13,13. Need UE for support to descend TUG Impairment Rating 40 to <60% Impaired (Score 14- 15) PT-OP-G Mobility & Gait Start: 01/02/21 08:18 Freq: Status: Active Protocol: Document 01/02/21 10:04 HH (Rec: 01/02/21 10:30 [email or web address]) OP Gait Assessment Gait Gait Assistance Required: Standby Assistance Assistive Devices Assistive Device None,Straight Cane Gait Deviations General Gait Pattern Ataxic Factors Limiting Gait Function Factors Limiting Gait Function Abnormal Tonal Influences, Decreased Activity Tolerance, Poor Balance,Poor Safety Awareness Comments Gait Comments pt walks with an ataxic gait with uneven step length and width without the use of SPC. He does need to slow down to pace himself occasionally. He also walks WBOS with hyperextended knee R>L. PT-OP-H Neuro Start: 01/02/21 08:18 Freq: Status: Active Protocol: Document 01/02/21 10:04 (Rec: 01/02/21 10:30 [email or web address]) Sensation Evaluation Gross Sensation Gross Sensation Right UE Impaired,Right LE Impaired Sensation Description Numbness,Tingling Comments Summary Comments consistent numbness and tingling sensation from head to toe ( R side only ) Coordination Evaluation Upper Extremity Tests Right Finger to Nose Test Minimal Impairment Finger to Therapist's Finger Test Minimal Impairment Finger Opposition Test Minimal Impairment Pronation/Supination Test Minimal Impairment Lower Extremity Tests Alternate Heel to Knee; Heel to Toe Test Minimal Impairment Heel on [place] Test Minimal Impairment Drawing a [place] w/Foot Test Minimal Impairment Comments Coordination Comments noticeable min impairment ( slight increased time taken/ overshoot/undershoot) for coordination testings but he is able to complete. Deep Tendon Reflex & Clonus Assessment Deep Tendon Reflex Bilateral Achilles Deep Tendon Reflex 3+ Normal But Brisk Bilateral Patellar Deep Tendon Reflex 3+ Normal But Brisk PT-OP-K Range of Motion Start: 01/02/21 08:18 Freq: Status: Active Protocol: Document 01/02/21 10:04 (Rec: 01/02/21 12:22 [email or web address]) Cervical Spine Range of Motion Cervical Spine Active Degrees Comments WFL Shoulder Goniometric Range of Motion Shoulder Right Active Shoulder ROM WFL Yes Left Active Shoulder ROM WFL Yes Hip Goniometric Range of Motion Hip Right Active Hip ROM WFL Yes Left Active Hip ROM WFL Yes PT-OP-M Strength Start: 01/02/21 08:18 Freq: Status: Active Protocol: Document 01/02/21 10:04 (Rec: 01/02/21 12:36 [email or web address]) Shoulder Strength Shoulder Manual Muscle Testing Right Flexion 5 Normal Extension 5 Normal Abduction (C5) 5 Normal Adduction 5 Normal Left Flexion 5 Normal Extension 5 Normal Abduction (C5) 5 Normal Adduction 5 Normal Hip Strength Hip Manual Muscle Testing Right Flexion (L2) 4+ Good+ Extension (S1) 5 Normal Abduction 5 Normal Adduction 5 Normal Left Flexion (L2) 5 Normal Extension (S1) 5 Normal Abduction 5 Normal Adduction 5 Normal Knee Strength Knee Manual Muscle Testing Left Flexion (S2) 5 Normal Extension (L3) 5 Normal Right Flexion (S2) 5 Normal Extension (L3) 5 Normal Ankle/Foot Strength Ankle and Foot Manual Muscle Testing Right Dorsiflexion (L4) 5 Normal Plantarflexion (S1) 5 Normal Left Dorsiflexion (L4) 5 Normal Plantarflexion (S1) 5 Normal PT-OP-Q Treatments Start: 01/02/21 08:18 Freq: Status: Active Protocol: Document 01/24/21 09:45 HH (Rec: 01/24/21 10:52 HH [id number]) Cardio Equipment Elliptical Duration (Minutes) 4 Resistance 4 Other SOb noted, 10s break at 3rd min Bicycle (Upright) Duration (Minutes) 4 Resistance 6 Gym Equipment Shuttle Recovery SL squat Details focus on end range extension with good control Resistance 50#, 75# Shuttle Recovery Platform Stable Reps/Time improved knee extension control Gait Training Gait Activity multitask Comments holding a cup of water while walking Neuro Re-Education Treatment Balance Activities quick turn Comments on PT command to stop and turn . S walk Details around hurdles Surface ground level backward walking Details EC Surface ground level open area Equipment CGA side step Details EC Surface ground level open area Equipment CGA hurdles Details side step/ forward Reps/Duration 8 mins Comments open area tandem Surface ground level Comments full tandem, pt is able to hold >20 s x5 arms to the side for counter balance romberg Surface ground level Comments EC, against wall hold 20s x 5 for HEP PT-OP-T Assessment and Plan Start: 01/02/21 08:18 Freq: Status: Active Protocol: Document 01/24/21 09:45 (Rec: 01/24/21 10:52 [id number]) Physical Therapy Assessment Goals stair climbing Impairment pt needs B rails to climb stair Short Term Goal (STG) pt will be able to climb stair with 1 rail safely at home and at work. STG Duration 4 weeks Lead Man Over All Dies In Pattern Shop Goal (LTG) pt will be able to climb stair without railings safely at home and at work. LTG Duration 8 weeks activity tolerance Impairment able to tolerate walking up to 0.5 mile with/ without a cane Short Term Goal (STG) pt will be able to show improved gait balance and activitiy tolerance to complete a total of 3 miles per week with/ without a cane. STG Duration 4weeks Lead Man Over All Dies In Pattern Shop Goal (LTG) pt will be able to show improved gait balance and activitiy tolerance to complete a total of 5 miles per week without a cane safely . LTG Duration 8 weeks DGI Impairment pt scores 14/24 Short Term Goal (STG) pt will be able to show improved dynamic gait balance by scoring 18/24 to reduce his fall risks STG Duration 4 weeks Lead Man Over All Dies In Pattern Shop Goal (LTG) pt will be able to show improved dynamic gait balance by scoring 21/24 to reduce his fall risks in community LTG Duration 8 weeks Assessment Summary Assessment pt self reports walking 95% normal but still has difficulty with quick turns and multitask while walking. However, his performance does get better with repetition. Pt reports he wants to get back to playing golf and basketball if possible. I believe pt will need to be able to return to running first followed by dynamic balancing and agility training in future sessions. Physical Therapy Plan Frequency and Duration Frequency of Treatment 2x/Week Duration of Treatment 8 weeks Plan of Care Start Date 01/02/21 Plan of Care End Date 03/03/21 Therapeutic Interventions Therapeutic Interventions Aquatic Therapy,Balance Training,Gait Training,Home Exercise Program,Neuromuscular Re-education,Patient/ Caregiver Education,Self-Care/ Home Management,Therapeutic Activities,Therapeutic Exercises Modalities Cold Pack/Ice Massage,Electric Stimulation,Hot Packs, Infrared Therapy,Traction- Mechanical,Ultrasound Next Visit Focus/Plan Next Note Type Treatment Note Next Visit Plan reassessment next visit
--- NOTE | 2021-01-26 10:22 | PT.OTN ---
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 Will start half day shift for 3 weeks first. pt requested to leave early d/ t f/u with PCP Visit Start Time 09:45 Visit Stop Time 10:25 Total Visit Minutes 40 Visit Number 09/11 Number of RESEARCH DIRECTOR Visits 0 PT-OP-B Current Condition Start: 01/02/21 08:18 Freq: Status: Active Protocol: Document 01/02/21 10:04 (Rec: 01/02/21 10:30 [email or web address]) Current Condition History of Current Condition Onset Date 12/01/20 Current Complaints Post CVA ataxic gait, decreased balance, numbness/ tingling on R side History of Current Condition Larry is a very pleasant 60 yo right handed male here for his ataxic gait and decreased balance post CVA on 12/01/20. He initially collapsed without loss of consciousness after dinner on 12/01/20 due to anaphylaxis shock secondary to seafood exposure . He was intubated by paramedics and [facility]. 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 He was then transferred tot the neuro ICU at the [facility] for further workup and acute rehab. He was seen by speech therapy, Occupational therapy and physical therapy 3 hours a day x 5days pet week. He recently returned home on 12/28/20 since his overall mobility has improved significantly. His current complaints are decreased balance and unsteady gait, along with tingling/ numbness to his R side of the body. He has no loss of ROM/ strength and able to walk up to 1/2 mile with/ without a cane. He has been using his stationary bike at home for a couple miles a day since DC from [facility]. He has not had any falls since his stroke. 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 Patient Reported Progress Improving PT-OP-E Functional Tests Start: 01/02/21 08:18 Freq: Status: Active Protocol: Document 01/26/21 09:45 HH (Rec: 01/26/21 10:22 [id number]) Functional Tests Dynamic Gait Index (DGI) Score 23 DGI Impairment Rating 1 to <20% Impaired (Score 20- 23) PT-OP-G Mobility & Gait Start: 01/02/21 08:18 Freq: Status: Active Protocol: Document 01/02/21 10:04 HH (Rec: 01/02/21 10:30 [email or web address]) OP Gait Assessment Gait Gait Assistance Required: Standby Assistance Assistive Devices Assistive Device None,Straight Cane Gait Deviations General Gait Pattern Ataxic Factors Limiting Gait Function Factors Limiting Gait Function Abnormal Tonal Influences, Decreased Activity Tolerance, Poor Balance,Poor Safety Awareness Comments Gait Comments pt walks with an ataxic gait with uneven step length and width without the use of SPC. He does need to slow down to pace himself occasionally. He also walks WBOS with hyperextended knee R>L. PT-OP-H Neuro Start: 01/02/21 08:18 Freq: Status: Active Protocol: Document 01/02/21 10:04 (Rec: 01/02/21 10:30 [email or web address]) Sensation Evaluation Gross Sensation Gross Sensation Right UE Impaired,Right LE Impaired Sensation Description Numbness,Tingling Comments Summary Comments consistent numbness and tingling sensation from head to toe ( R side only ) Coordination Evaluation Upper Extremity Tests Right Finger to Nose Test Minimal Impairment Finger to Therapist's Finger Test Minimal Impairment Finger Opposition Test Minimal Impairment Pronation/Supination Test Minimal Impairment Lower Extremity Tests Alternate Heel to Knee; Heel to Toe Test Minimal Impairment Heel on [place] Test Minimal Impairment Drawing a [place] w/Foot Test Minimal Impairment Comments Coordination Comments noticeable min impairment ( slight increased time taken/ overshoot/undershoot) for coordination testings but he is able to complete. Deep Tendon Reflex & Clonus Assessment Deep Tendon Reflex Bilateral Achilles Deep Tendon Reflex 3+ Normal But Brisk Bilateral Patellar Deep Tendon Reflex 3+ Normal But Brisk PT-OP-K Range of Motion Start: 01/02/21 08:18 Freq: Status: Active Protocol: Document 01/02/21 10:04 (Rec: 01/02/21 12:22 [email or web address]) Cervical Spine Range of Motion Cervical Spine Active Degrees Comments WFL Shoulder Goniometric Range of Motion Shoulder Right Active Shoulder ROM WFL Yes Left Active Shoulder ROM WFL Yes Hip Goniometric Range of Motion Hip Right Active Hip ROM WFL Yes Left Active Hip ROM WFL Yes PT-OP-M Strength Start: 01/02/21 08:18 Freq: Status: Active Protocol: Document 01/02/21 10:04 (Rec: 01/02/21 12:36 [email or web address]) Shoulder Strength Shoulder Manual Muscle Testing Right Flexion 5 Normal Extension 5 Normal Abduction (C5) 5 Normal Adduction 5 Normal Left Flexion 5 Normal Extension 5 Normal Abduction (C5) 5 Normal Adduction 5 Normal Hip Strength Hip Manual Muscle Testing Right Flexion (L2) 4+ Good+ Extension (S1) 5 Normal Abduction 5 Normal Adduction 5 Normal Left Flexion (L2) 5 Normal Extension (S1) 5 Normal Abduction 5 Normal Adduction 5 Normal Knee Strength Knee Manual Muscle Testing Left Flexion (S2) 5 Normal Extension (L3) 5 Normal Right Flexion (S2) 5 Normal Extension (L3) 5 Normal Ankle/Foot Strength Ankle and Foot Manual Muscle Testing Right Dorsiflexion (L4) 5 Normal Plantarflexion (S1) 5 Normal Left Dorsiflexion (L4) 5 Normal Plantarflexion (S1) 5 Normal PT-OP-Q Treatments Start: 01/02/21 08:18 Freq: Status: Active Protocol: Document 01/26/21 09:45 HH (Rec: 01/26/21 10:21 [id number]) Cardio Equipment Elliptical Duration (Minutes) 4 Resistance 4 Other SOb noted, 10s break at 3rd min Bicycle (Upright) Duration (Minutes) 4 Resistance 6 Neuro Re-Education Treatment Balance Activities quick turn Comments on PT command to stop and turn . S walk Details around hurdles Surface ground level backward walking Details EC Surface ground level open area Equipment CGA side step Details EC Surface ground level open area Equipment CGA hurdles Details side step/ forward Reps/Duration 8 mins Comments open area tandem Surface ground level Comments full tandem, pt is able to hold >20 s x5 arms to the side for counter balance PT-OP-T Assessment and Plan Start: 01/02/21 08:18 Freq: Status: Active Protocol: Document 01/26/21 09:45 HH (Rec: 01/26/21 10:21 [id number]) Physical Therapy Assessment Goals stair climbing Impairment pt needs B rails to climb stair Short Term Goal (STG) pt will be able to climb stair with 1 rail safely at home and at work. STG Duration 4 weeks Purchasing/Receiving Goal (LTG) 12/2 partially met pt is able to climb stairs without handrails occasionally . pt will be able to climb stair without railings safely at home and at work. LTG Duration 8 weeks activity tolerance Impairment able to tolerate walking up to 0.5 mile with/ without a cane Short Term Goal (STG) pt will be able to show improved gait balance and activitiy tolerance to complete a total of 3 miles per week with/ without a cane. STG Duration 4weeks Purchasing/Receiving Goal (LTG) 12/2 goal met pt has been walking 2-3 miles per day without AD pt will be able to show improved gait balance and activitiy tolerance to complete a total of 5 miles per week without a cane safely . LTG Duration 8 weeks DGI Impairment pt scores 14/24 Short Term Goal (STG) pt will be able to show improved dynamic gait balance by scoring 18/24 to reduce his fall risks STG Duration 4 weeks Purchasing/Receiving Goal (LTG) 01/26 goal met pt scores 23/24 on DGI pt will be able to show improved dynamic gait balance by scoring to reduce his fall risks in community LTG Duration 8 weeks Assessment Summary Assessment Reassessment today and pt scores 23/24 from on DGI . He still has difficulty with single leg stance and quick turn. will cont POC Physical Therapy Plan Frequency and Duration Frequency of Treatment 2x/Week Duration of Treatment 8 weeks Plan of Care Start Date 01/02/21 Plan of Care End Date 03/03/21 Therapeutic Interventions Therapeutic Interventions Aquatic Therapy,Balance Training,Gait Training,Home Exercise Program,Neuromuscular Re-education,Patient/ Caregiver Education,Self-Care/ Home Management,Therapeutic Activities,Therapeutic Exercises Modalities Cold Pack/Ice Massage,Electric Stimulation,Hot Packs, Infrared Therapy,Traction- Mechanical,Ultrasound Next Visit Focus/Plan Next Note Type Treatment Note Next Visit Plan reassessment next visit
--- NOTE | 2021-01-31 10:35 | PT.OTN ---
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 Will start half day shift for 3 weeks first. pt requested to leave early d/ t f/u with PCP Visit Start Time 09:46 Visit Stop Time 10:30 Total Visit Minutes 44 Visit Number 10/12 Number of SATELLITE MANAGER Visits 0 PT-OP-B Current Condition Start: 01/02/21 08:18 Freq: Status: Active Protocol: Document 01/02/21 10:04 (Rec: 01/02/21 10:30 [email or web address]) Current Condition History of Current Condition Onset Date 12/01/20 Current Complaints Post CVA ataxic gait, decreased balance, numbness/ tingling on R side History of Current Condition Larry is a very pleasant 60 yo right handed male here for his ataxic gait and decreased balance post CVA on 12/01/20. He initially collapsed without loss of consciousness after dinner on 12/01/20 due to anaphylaxis shock secondary to seafood exposure . [facility]. 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 He was then transferred tot the neuro ICU at the [facility] for further workup and acute rehab. He was seen by speech therapy, Occupational therapy and physical therapy 3 hours a day x 5days pet week. He recently returned home on 12/28/20 since his overall mobility has improved significantly. His current complaints are decreased balance and unsteady gait, along with tingling/ numbness to his R side of the body. He has no loss of ROM/ strength and able to walk up to 1/2 mile with/ without a cane. He has been using his stationary bike at home for a couple miles a day since DC from [facility]. He has not had any falls since his stroke. 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 I think i need one more week to walk 100% normal. I am very pleased with my progress. Patient Reported Progress Improving PT-OP-E Functional Tests Start: 01/02/21 08:18 Freq: Status: Active Protocol: Document 01/26/21 09:45 HH (Rec: 01/26/21 10:22 [id number]) Functional Tests Dynamic Gait Index (DGI) Score 23 DGI Impairment Rating 1 to <20% Impaired (Score 20- 23) PT-OP-G Mobility & Gait Start: 01/02/21 08:18 Freq: Status: Active Protocol: Document 01/02/21 10:04 HH (Rec: 01/02/21 10:30 [email or web address]) OP Gait Assessment Gait Gait Assistance Required: Standby Assistance Assistive Devices Assistive Device None,Straight Cane Gait Deviations General Gait Pattern Ataxic Factors Limiting Gait Function Factors Limiting Gait Function Abnormal Tonal Influences, Decreased Activity Tolerance, Poor Balance,Poor Safety Awareness Comments Gait Comments pt walks with an ataxic gait with uneven step length and width without the use of SPC. He does need to slow down to pace himself occasionally. He also walks WBOS with hyperextended knee R>L. PT-OP-H Neuro Start: 01/02/21 08:18 Freq: Status: Active Protocol: Document 01/02/21 10:04 (Rec: 01/02/21 10:30 [email or web address]) Sensation Evaluation Gross Sensation Gross Sensation Right UE Impaired,Right LE Impaired Sensation Description Numbness,Tingling Comments Summary Comments consistent numbness and tingling sensation from head to toe ( R side only ) Coordination Evaluation Upper Extremity Tests Right Finger to Nose Test Minimal Impairment Finger to Therapist's Finger Test Minimal Impairment Finger Opposition Test Minimal Impairment Pronation/Supination Test Minimal Impairment Lower Extremity Tests Alternate Heel to Knee; Heel to Toe Test Minimal Impairment Heel on [place] Test Minimal Impairment Drawing a [place] w/Foot Test Minimal Impairment Comments Coordination Comments noticeable min impairment ( slight increased time taken/ overshoot/undershoot) for coordination testings but he is able to complete. Deep Tendon Reflex & Clonus Assessment Deep Tendon Reflex Bilateral Achilles Deep Tendon Reflex 3+ Normal But Brisk Bilateral Patellar Deep Tendon Reflex 3+ Normal But Brisk PT-OP-K Range of Motion Start: 01/02/21 08:18 Freq: Status: Active Protocol: Document 01/02/21 10:04 (Rec: 01/02/21 12:22 [email or web address]) Cervical Spine Range of Motion Cervical Spine Active Degrees Comments WFL Shoulder Goniometric Range of Motion Shoulder Right Active Shoulder ROM WFL Yes Left Active Shoulder ROM WFL Yes Hip Goniometric Range of Motion Hip Right Active Hip ROM WFL Yes Left Active Hip ROM WFL Yes PT-OP-M Strength Start: 01/02/21 08:18 Freq: Status: Active Protocol: Document 01/02/21 10:04 (Rec: 01/02/21 12:36 [email or web address]) Shoulder Strength Shoulder Manual Muscle Testing Right Flexion 5 Normal Extension 5 Normal Abduction (C5) 5 Normal Adduction 5 Normal Left Flexion 5 Normal Extension 5 Normal Abduction (C5) 5 Normal Adduction 5 Normal Hip Strength Hip Manual Muscle Testing Right Flexion (L2) 4+ Good+ Extension (S1) 5 Normal Abduction 5 Normal Adduction 5 Normal Left Flexion (L2) 5 Normal Extension (S1) 5 Normal Abduction 5 Normal Adduction 5 Normal Knee Strength Knee Manual Muscle Testing Left Flexion (S2) 5 Normal Extension (L3) 5 Normal Right Flexion (S2) 5 Normal Extension (L3) 5 Normal Ankle/Foot Strength Ankle and Foot Manual Muscle Testing Right Dorsiflexion (L4) 5 Normal Plantarflexion (S1) 5 Normal Left Dorsiflexion (L4) 5 Normal Plantarflexion (S1) 5 Normal PT-OP-Q Treatments Start: 01/02/21 08:18 Freq: Status: Active Protocol: Document 01/31/21 10:00 (Rec: 01/31/21 10:35 [id number]) Cardio Equipment Elliptical Duration (Minutes) 4 Resistance 4 Other no break today. Recumbent Stepper (Sci-Fit) Duration (Minutes) 3 Resistance 5 Therapeutic Activity Therapeutic Activity stair climbing Name with a cup of water on R hand Comments no handrails, reciprocal pattern on 4 steps. Gait Training Gait Activity multitask Description hurdles and S walk Comments holding a cup of water while walking, backward, sidewalk, hurdles, improved accuracy without overshooting. Neuro Re-Education Treatment Balance Activities quick turn Comments on PT command to stop and turn . hold a cup of water. S walk Details around hurdles Surface ground level Comments hold a cup of water in R hand hurdles Details side step/ forward Reps/Duration 8 mins Comments open area hold a cup of water in R hand tandem Surface ground level Comments full tandem walk with a cup of water in R hand. PT-OP-T Assessment and Plan Start: 01/02/21 08:18 Freq: Status: Active Protocol: Document 01/31/21 10:00 (Rec: 01/31/21 10:35 [id number]) Physical Therapy Assessment Goals stair climbing Impairment pt needs B rails to climb stair Short Term Goal (STG) pt will be able to climb stair with 1 rail safely at home and at work. STG Duration 4 weeks Correction Goal (LTG) 12/2 partially met pt is able to climb stairs without handrails occasionally . pt will be able to climb stair without railings safely at home and at work. LTG Duration 8 weeks activity tolerance Impairment able to tolerate walking up to 0.5 mile with/ without a cane Short Term Goal (STG) pt will be able to show improved gait balance and activitiy tolerance to complete a total of 3 miles per week with/ without a cane. STG Duration 4weeks Computer Technical Support Specialist Goal (LTG) 12/2 goal met pt has been walking 2-3 miles per day without AD pt will be able to show improved gait balance and activitiy tolerance to complete a total of 5 miles per week without a cane safely . LTG Duration 8 weeks DGI Impairment pt scores 14/24 Short Term Goal (STG) pt will be able to show improved dynamic gait balance by scoring 18/24 to reduce his fall risks STG Duration 4 weeks Computer Technical Support Specialist Goal (LTG) 12/2 goal met pt scores 23/24 on DGI pt will be able to show improved dynamic gait balance by scoring 21/24 to reduce his fall risks in community LTG Duration 8 weeks Assessment Summary Assessment pt is doing very well. He is able to complete sharp turn, hold a cup of water for balancing exercises with good control. Pt is close to PLOF but still be benefit from high level balancing ex. Pt would like to get into jogging in the future. Physical Therapy Plan Frequency and Duration Frequency of Treatment 2x/Week Duration of Treatment 8 weeks Plan of Care Start Date 01/02/21 Plan of Care End Date 03/03/21 Therapeutic Interventions Therapeutic Interventions Aquatic Therapy,Balance Training,Gait Training,Home Exercise Program,Neuromuscular Re-education,Patient/ Caregiver Education,Self-Care/ Home Management,Therapeutic Activities,Therapeutic Exercises Modalities Cold Pack/Ice Massage,Electric Stimulation,Hot Packs, Infrared Therapy,Traction- Mechanical,Ultrasound Next Visit Focus/Plan Next Note Type Treatment Note Next Visit Plan quick turns speed walk dynamic balance.
--- NOTE | 2021-02-02 14:24 | PT.OTN ---
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 Will start half day shift for 3 weeks first. Visit Start Time 13:46 Visit Stop Time 14:15 Total Visit Minutes 29 Visit Number 11/12 Number of HAZMAT TANKER DRIVER Visits 0 PT-OP-B Current Condition Start: 01/02/21 08:18 Freq: Status: Active Protocol: Document 01/02/21 10:04 HH (Rec: 01/02/21 10:30 [email or web address]) Current Condition History of Current Condition Onset Date 12/01/20 Current Complaints Post CVA ataxic gait, decreased balance, numbness/ tingling on R side History of Current Condition Larry is a very pleasant 60 yo right handed male here for his ataxic gait and decreased balance post CVA on 12/01/20. He initially collapsed without loss of consciousness after dinner on 12/01/20 due to anaphylaxis shock secondary to seafood exposure . He was intubated by paramedics and sent to [facility]. 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 He was then transferred tot the neuro ICU at the [facility] for further workup and acute rehab. He was seen by speech therapy, Occupational therapy and physical therapy 3 hours a day x 5days pet week. He recently returned home on 12/28/20 since his overall mobility has improved significantly. His current complaints are decreased balance and unsteady gait, along with tingling/ numbness to his R side of the body. He has no loss of ROM/ strength and able to walk up to 1/2 mile with/ without a cane. He has been using his stationary bike at home for a couple miles a day since DC from [facility]. He has not had any falls since his stroke. 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 I'm not as fast as I used to be but that'll come with time. Patient Reported Progress Improving PT-OP-E Functional Tests Start: 01/02/21 08:18 Freq: Status: Active Protocol: Document 01/26/21 09:45 HH (Rec: 01/26/21 10:22 HH [id number]) Functional Tests Dynamic Gait Index (DGI) Score 23 DGI Impairment Rating 1 to <20% Impaired (Score 20- 23) PT-OP-G Mobility & Gait Start: 01/02/21 08:18 Freq: Status: Active Protocol: Document 01/02/21 10:04 HH (Rec: 01/02/21 10:30 HH [email or web address]) OP Gait Assessment Gait Gait Assistance Required: Standby Assistance Assistive Devices Assistive Device None,Straight Cane Gait Deviations General Gait Pattern Ataxic Factors Limiting Gait Function Factors Limiting Gait Function Abnormal Tonal Influences, Decreased Activity Tolerance, Poor Balance,Poor Safety Awareness Comments Gait Comments pt walks with an ataxic gait with uneven step length and width without the use of SPC. He does need to slow down to pace himself occasionally. He also walks WBOS with hyperextended knee R>L. PT-OP-H Neuro Start: 01/02/21 08:18 Freq: Status: Active Protocol: Document 01/02/21 10:04 (Rec: 01/02/21 10:30 [email or web address]) Sensation Evaluation Gross Sensation Gross Sensation Right UE Impaired,Right LE Impaired Sensation Description Numbness,Tingling Comments Summary Comments consistent numbness and tingling sensation from head to toe ( R side only ) Coordination Evaluation Upper Extremity Tests Right Finger to Nose Test Minimal Impairment Finger to Therapist's Finger Test Minimal Impairment Finger Opposition Test Minimal Impairment Pronation/Supination Test Minimal Impairment Lower Extremity Tests Alternate Heel to Knee; Heel to Toe Test Minimal Impairment Heel on [place]am Test Minimal Impairment Drawing a [place] w/Foot Test Minimal Impairment Comments Coordination Comments noticeable min impairment ( slight increased time taken/ overshoot/undershoot) for coordination testings but he is able to complete. Deep Tendon Reflex & Clonus Assessment Deep Tendon Reflex Bilateral Achilles Deep Tendon Reflex 3+ Normal But Brisk Bilateral Patellar Deep Tendon Reflex 3+ Normal But Brisk PT-OP-K Range of Motion Start: 01/02/21 08:18 Freq: Status: Active Protocol: Document 01/02/21 10:04 (Rec: 01/02/21 12:22 [email or web address]) Cervical Spine Range of Motion Cervical Spine Active Degrees Comments WFL Shoulder Goniometric Range of Motion Shoulder Right Active Shoulder ROM WFL Yes Left Active Shoulder ROM WFL Yes Hip Goniometric Range of Motion Hip Right Active Hip ROM WFL Yes Left Active Hip ROM WFL Yes PT-OP-M Strength Start: 01/02/21 08:18 Freq: Status: Active Protocol: Document 01/02/21 10:04 (Rec: 01/02/21 12:36 [email or web address]) Shoulder Strength Shoulder Manual Muscle Testing Right Flexion 5 Normal Extension 5 Normal Abduction (C5) 5 Normal Adduction 5 Normal Left Flexion 5 Normal Extension 5 Normal Abduction (C5) 5 Normal Adduction 5 Normal Hip Strength Hip Manual Muscle Testing Right Flexion (L2) 4+ Good+ Extension (S1) 5 Normal Abduction 5 Normal Adduction 5 Normal Left Flexion (L2) 5 Normal Extension (S1) 5 Normal Abduction 5 Normal Adduction 5 Normal Knee Strength Knee Manual Muscle Testing Left Flexion (S2) 5 Normal Extension (L3) 5 Normal Right Flexion (S2) 5 Normal Extension (L3) 5 Normal Ankle/Foot Strength Ankle and Foot Manual Muscle Testing Right Dorsiflexion (L4) 5 Normal Plantarflexion (S1) 5 Normal Left Dorsiflexion (L4) 5 Normal Plantarflexion (S1) 5 Normal PT-OP-Q Treatments Start: 01/02/21 08:18 Freq: Status: Active Protocol: Document 02/02/21 14:15 AW (Rec: 02/02/21 14:18 AW [id number]) Cardio Equipment Elliptical Duration (Minutes) 4 Resistance 4 Other no break today, slight SOB but carries on conversation Therapeutic Activity Therapeutic Activity stair climbing Name with a cup of water on R hand Comments no handrails, reciprocal pattern on 4 and 6 steps. Neuro Re-Education Treatment Balance Activities quick turn Comments on PT command to stop and turn . hold a cup of water. no LOB. quality motor control. backward walking Details EC Surface ground level open area Equipment CGA hurdles Details side step/ forward Reps/Duration 8 mins Comments open area hold a cup of water in R hand tandem Surface ground level Comments full tandem walk with a cup of water in R hand. PT-OP-T Assessment and Plan Start: 01/02/21 08:18 Freq: Status: Active Protocol: Document 02/02/21 14:15 AW (Rec: 02/02/21 14:23 AW [email or web address]) Physical Therapy Assessment Goals stair climbing Impairment pt needs B rails to climb stair Short Term Goal (STG) pt will be able to climb stair with 1 rail safely at home and at work. STG Duration 4 weeks Underwater Welder Goal (LTG) 12/2 partially met pt is able to climb stairs without handrails occasionally . pt will be able to climb stair without railings safely at home and at work. LTG Duration 8 weeks activity tolerance Impairment able to tolerate walking up to 0.5 mile with/ without a cane Short Term Goal (STG) pt will be able to show improved gait balance and activitiy tolerance to complete a total of 3 miles per week with/ without a cane. STG Duration 4weeks Underwater Welder Goal (LTG) 12/2 goal met pt has been walking 2-3 miles per day without AD pt will be able to show improved gait balance and activitiy tolerance to complete a total of 5 miles per week without a cane safely . LTG Duration 8 weeks DGI Impairment pt scores 1424 Short Term Goal (STG) pt will be able to show improved dynamic gait balance by scoring 18/24 to reduce his fall risks STG Duration 4 weeks Underwater Welder Goal (LTG) 12/2 goal met pt scores 23/24 on DGI pt will be able to show improved dynamic gait balance by scoring 21/24 to reduce his fall risks in community LTG Duration 8 weeks Assessment Summary Assessment Pt appreciates short visit today. He feels he has met all of his goals and is ready for discharge. PT told pt we will leave his chart open until 03/03/21 per POC in case he decides to return for any reason before then. If pt does not return, he understands he will be discharged from PT and will require a new referral to return. Physical Therapy Plan Frequency and Duration Frequency of Treatment 2x/Week Duration of Treatment 8 weeks Plan of Care Start Date 01/02/21 Plan of Care End Date 03/03/21 Therapeutic Interventions Therapeutic Interventions Aquatic Therapy,Balance Training,Gait Training,Home Exercise Program,Neuromuscular Re-education,Patient/ Caregiver Education,Self-Care/ Home Management,Therapeutic Activities,Therapeutic Exercises Modalities Cold Pack/Ice Massage,Electric Stimulation,Hot Packs, Infrared Therapy,Traction- Mechanical,Ultrasound Next Visit Focus/Plan Next Note Type Discharge Summary
--- NOTE | 2021-03-09 16:36 | PT.OPDS ---
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 (02/02/21) Other sequelae of cerebral infarction (02/02/21) Other abnormalities of gait and mobility (02/02/21) Ataxia, unspecified (02/02/21) Visit Care Team Role Provider Type Sea Barbosa MD Family Provider Physician Primary Care Provider Specialty: Internal Medicine Address: [address] [place] [address], [facility] [address], [place], [address] Email: [email or web address] Miguel Ángel Naik MD Attending Provider Non-Staff Referring Provider Specialty: Physical Medicine and Rehab Address: [address], [address], [place], [address] Email: Visit Number Visit Number 11/12 Discharge Summary PT-OP-B Current Condition Start: 01/02/21 08:18 Freq: Status: Active Protocol: Document 01/02/21 10:04 (Rec: 01/02/21 10:30 [email or web address]) Current Condition History of Current Condition Onset Date 12/01/20 Current Complaints Post CVA ataxic gait, decreased balance, numbness/ tingling on R side History of Current Condition Larry is a very pleasant 60 yo right handed male here for his ataxic gait and decreased balance post CVA on 12/01/20. He initially collapsed without loss of consciousness after dinner on 12/01/20 due to anaphylaxis shock secondary to seafood exposure . He was intubated by paramedics and sent to [facility]. 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 He was then transferred tot the neuro ICU at the [facility] for further workup and acute rehab. He was seen by speech therapy, Occupational therapy and physical therapy 3 hours a day x 5days pet week. He recently returned home on 12/28/20 since his overall mobility has improved significantly. His current complaints are decreased balance and unsteady gait, along with tingling/ numbness to his R side of the body. He has no loss of ROM/ strength and able to walk up to 1/2 mile with/ without a cane. He has been using his stationary bike at home for a couple miles a day since DC from [place]. He has not had any falls since his stroke. 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 Current Functional Impairments (Reported) Functional Limitations- ADL's occasional supervision from use SPC as needed Functional Limitations- Mobility/Gait able to walk up to 1/2 mile with/without SPC PT-OP-C Subjective Start: 01/02/21 08:18 Freq: Status: Active Protocol: Document 02/02/21 14:15 AW (Rec: 02/02/21 14:18 AW [id number]) OP-PT Subjective Patient Comments Patient Comments I mowed the lawn yesterday and felt good about it. I'm not as fast as I used to be but that'll come with time. Patient Reported Progress Improving PT-OP-E Functional Tests Start: 01/02/21 08:18 Freq: Status: Active Protocol: Document 01/26/21 09:45 HH (Rec: 01/26/21 10:22 HH [id number]) Functional Tests Dynamic Gait Index (DGI) Score 23 DGI Impairment Rating 1 to <20% Impaired (Score 20- 23) PT-OP-G Mobility & Gait Start: 01/02/21 08:18 Freq: Status: Active Protocol: Document 01/02/21 10:04 HH (Rec: 01/02/21 10:30 HH [email or web address]) OP Gait Assessment Gait Gait Assistance Required: Standby Assistance Assistive Devices Assistive Device None,Straight Cane Gait Deviations General Gait Pattern Ataxic Factors Limiting Gait Function Factors Limiting Gait Function Abnormal Tonal Influences, Decreased Activity Tolerance, Poor Balance,Poor Safety Awareness Comments Gait Comments pt walks with an ataxic gait with uneven step length and width without the use of SPC. He does need to slow down to pace himself occasionally. He also walks WBOS with hyperextended knee R>L. PT-OP-H Neuro Start: 01/02/21 08:18 Freq: Status: Active Protocol: Document 01/02/21 10:04 (Rec: 01/02/21 10:30 HH [email or web address]) Sensation Evaluation Gross Sensation Gross Sensation Right UE Impaired,Right LE Impaired Sensation Description Numbness,Tingling Comments Summary Comments consistent numbness and tingling sensation from head to toe ( R side only ) Coordination Evaluation Upper Extremity Tests Right Finger to Nose Test Minimal Impairment Finger to Therapist's Finger Test Minimal Impairment Finger Opposition Test Minimal Impairment Pronation/Supination Test Minimal Impairment Lower Extremity Tests Alternate Heel to Knee; Heel to Toe Test Minimal Impairment Heel on [place] Test Minimal Impairment Drawing a [place] w/Foot Test Minimal Impairment Comments Coordination Comments noticeable min impairment ( slight increased time taken/ overshoot/undershoot) for coordination testings but he is able to complete. Deep Tendon Reflex & Clonus Assessment Deep Tendon Reflex Bilateral Achilles Deep Tendon Reflex 3+ Normal But Brisk Bilateral Patellar Deep Tendon Reflex 3+ Normal But Brisk PT-OP-K Range of Motion Start: 01/02/21 08:18 Freq: Status: Active Protocol: Document 01/02/21 10:04 (Rec: 01/02/21 12:22 [email or web address]) Cervical Spine Range of Motion Cervical Spine Active Degrees Comments WFL Shoulder Goniometric Range of Motion Shoulder Right Active Shoulder ROM WFL Yes Left Active Shoulder ROM WFL Yes Hip Goniometric Range of Motion Hip Right Active Hip ROM WFL Yes Left Active Hip ROM WFL Yes PT-OP-M Strength Start: 01/02/21 08:18 Freq: Status: Active Protocol: Document 01/02/21 10:04 (Rec: 01/02/21 12:36 [email or web address]) Shoulder Strength Shoulder Manual Muscle Testing Right Flexion 5 Normal Extension 5 Normal Abduction (C5) 5 Normal Adduction 5 Normal Left Flexion 5 Normal Extension 5 Normal Abduction (C5) 5 Normal Adduction 5 Normal Hip Strength Hip Manual Muscle Testing Right Flexion (L2) 4+ Good+ Extension (S1) 5 Normal Abduction 5 Normal Adduction 5 Normal Left Flexion (L2) 5 Normal Extension (S1) 5 Normal Abduction 5 Normal Adduction 5 Normal Knee Strength Knee Manual Muscle Testing Left Flexion (S2) 5 Normal Extension (L3) 5 Normal Right Flexion (S2) 5 Normal Extension (L3) 5 Normal Ankle/Foot Strength Ankle and Foot Manual Muscle Testing Right Dorsiflexion (L4) 5 Normal Plantarflexion (S1) 5 Normal Left Dorsiflexion (L4) 5 Normal Plantarflexion (S1) 5 Normal PT-OP-T Assessment and Plan Start: 01/02/21 08:18 Freq: Status: Active Protocol: Document 03/09/21 16:35 AW (Rec: 03/09/21 16:36 AW [id number]) Physical Therapy Assessment Goals stair climbing Impairment pt needs B rails to climb stair Short Term Goal (STG) pt will be able to climb stair with 1 rail safely at home and at work. STG Duration 4 weeks Fdc Goal (LTG) 12/2 partially met pt is able to climb stairs without handrails occasionally . pt will be able to climb stair without railings safely at home and at work. LTG Duration 8 weeks activity tolerance Impairment able to tolerate walking up to 0.5 mile with/ without a cane Short Term Goal (STG) pt will be able to show improved gait balance and activitiy tolerance to complete a total of 3 miles per week with/ without a cane. STG Duration 4weeks Fdc Goal (LTG) 12/2 goal met pt has been walking 2-3 miles per day without AD pt will be able to show improved gait balance and activitiy tolerance to complete a total of 5 miles per week without a cane safely . LTG Duration 8 weeks DGI Impairment pt scores 14/24 Short Term Goal (STG) pt will be able to show improved dynamic gait balance by scoring 18/24 to reduce his fall risks STG Duration 4 weeks Dimethylaniline Sulfator Operator Goal (LTG) 12/2 goal met pt scores 23/24 on DGI pt will be able to show improved dynamic gait balance by scoring 21/24 to reduce his fall risks in community LTG Duration 8 weeks Physical Therapy Plan Discharge Physical Therapy Discharge Reasons Goals Met Discharge Comments Pt met all goals, improving dynamic balance and coordination to prior level. Pt is appropriate for discharge to [facility].
== END 2021-03-28 08:28 ==
LOC: PHYS 13:45
PROVIDERS: Family Provider Internal Medicine; PCP Internal Medicine; Referring Provider Physical Medicine & Rehabilitation; Visit Provider Physical Medicine & Rehabilitation
DX: R27.0 Ataxia, unspecified (principal); I69.398 Other sequelae of cerebral infarction; I63.212 Cerebral infarction due to unspecified occlusion or stenosis of left vertebral artery; I63.22 Cerebral infarction due to unspecified occlusion or stenosis of basilar artery
CPT/HCPCS: 97110; 97112; 97116; 97162; 97530